=== PATIENT | male | born 1930 | race Caucasian/White ===

== ENCOUNTER 2017-04-10 20:23 | Observation (INO) | payer MEDICARE, BC ==
[2017-04-10] MEDS ORDERED: SODIUM CHLORIDE 0.9% 500 ML IV STA (21:07)
[2017-04-10 21:26] LABS: Basophils % (A) 1 %; CH 35.7; CHCM 33.6; Eosinophils % (A) 1 %; HCT 44.9 % (39.0-53.0); HDW 2.18; HGB 14.6 gm/dL (13.0-17.5); Luc # (Auto) 0.15; Luc % (Auto) 4; Lymphocytes % (A) 27 %; MCH 34.7 pg (25.0-35.0); MCHC 32.4 g/dL (31.0-37.0); Macrocytosis Moderate; Mean Platelet Volume 7.5; Monocytes # (A) 0.5 k/uL (0-1.0); Monocytes % (A) 13 %; Neutrophils % (A) 55 %; RDW 13.6 % (11.5-15.5); WBC 3.6 k/uL (3.8-10.6); WBC (Perox) 3.87
[2017-04-10 21:30] LABS: INR 1.8 (<1.1); Partial Thromboplastin Time 32.4 sec (22.0-30.0); Prothrombin Time 17.1 sec (9.0-12.0)
[2017-04-10 21:31] LABS: ALT 19 U/L (21-72); AST 28 U/L (17-59); Alkaline Phosphatase 66 U/L (38-126); Anion Gap 9 mmol/L; Blood Urea Nitrogen 13 mg/dL (9-20); Calcium 9.4 mg/dL (8.4-10.2); Carbon Dioxide 27 mmol/L (22-30); Chloride 98 mmol/L (98-107); Glucose 91 mg/dL (74-99); Magnesium 1.6 mg/dL (1.6-2.3); Non-African American GFR(MDRD) >60 (>60 ml/min/1.73 sqM); Potassium 3.8 mmol/L (3.5-5.1); Sodium 134 mmol/L (137-145); Total Bilirubin 1.3 mg/dL (0.2-1.3); Total Protein 7.2 g/dL (6.3-8.2)
[2017-04-10 21:36] LABS: Appearance,Urine Clear (Clear); Bilirubin,Urine Negative (Negative); Glucose,Urine (UA) Negative (Negative); Ketones,Urine Negative (Negative); Leukocyte Esterase,Urine Negative (Negative); Nitrite,Urine Negative (Negative); Protein,Urine Trace (Negative); Specific Gravity,Urine 1.008 (1.001-1.035); UA Billing (MACRO vs. MICRO) CHEM; Urobilinogen,Urine <2.0 mg/dL (<2.0)
--- NOTE | 2017-04-10 21:55 | CT ---
EXAMINATION TYPE: CT brain wo con DATE OF EXAM: 04/10/2017 COMPARISON: January 09, 2014 HISTORY: Weakness and head pressure. CT DLP: 1017.9 mGycm. Automated exposure control for dose reduction was used. FINDINGS: There is no acute intracranial hemorrhage, mass effect, or midline shift identified. The ventricles and sulci are within normal limits in size. The globes are intact and the visualized sinuses are adeel ar. IMPRESSION: No acute intracranial hemorrhage, mass effect, or midline shift is seen.
--- NOTE | 2017-04-10 21:59 | XR ---
EXAMINATION TYPE: XR chest 2V DATE OF EXAM: 04/10/2017 COMPARISON: January 09, 2014 HISTORY: Weakness with bilateral arm numbness and visual disturbances and headache TECHNIQUE: Frontal and lateral views of the chest are obtained. FINDINGS: The coarse reticular pattern throughout the interstitium of the lung parenchyma is redemons trated and similar when compared the prior study. There are no focal lung processes. Cardiac silhouette and remainder of the mediastinal silhouette is unremarkable. Cardiac pacemaker not ed, EKG leads. The pleural spaces are negative. Bones and soft tissues are unremarkable. IMPRESSION: 1. No definite acute radiographic process; suspect the coarse interstitial pattern represents chronic interstitial lung disease. 2. However, an acute interstitial component could be present if mild pulmonary edema is present clini afia.
[2017-04-10] MEDS ORDERED: NALOXONE 0.4 MG/ML 1 ML VIAL IV PRN (22:24)
--- NOTE | 2017-04-10 22:24 | ED ---
Neuro HPI - General Chief Complaint: Neuro Symptoms/Deficit Stated Complaint: hand numbness-1 mo/shaky Time Seen by Provider: 04/10/17 20:59 Source: patient, family Mode of arrival: ambulatory Limitations: no limitations - History of Present Illness Is the patient presenting with stroke symptoms?: No Initial Comments: Patient is complaining of paresthesias, numbness and tingling. He has been feeling lightheaded and dizzy. He had a syncopal episode. He currently denies any chest pain or shortness of breath. He has no belly or back pain. He has no nausea or vomiting. He has no focal weakness. He has no neck pain or stiffness. He has no change of vision or hearing. Nothing makes his symptoms better or worse. He was not doing anything when he began to feel this way. He has taken no specific medication for his symptoms. - Related Data Home Medications: Home Medications Medication Instructions Recorded Confirmed Aspirin 81 mg PO DAILY 04/10/17 04/10/17 Digoxin (Unknown Dose) 1 tab PO HS 04/10/17 04/10/17 Magnesium 200 mg PO DAILY 04/10/17 04/10/17 Multivit-Min/FA/Lycopen/Lutein 1 tab PO DAILY 04/10/17 04/10/17 [Centrum Silver Men Tablet] Omeprazole (Unknown Dose) 1 cap PO BID 04/10/17 04/10/17 Unknown Medication 1 tab PO DAILY 04/10/17 04/10/17 Warfarin [Coumadin] 2.5 mg PO TUTHSA 04/10/17 04/10/17 Warfarin [Coumadin] 5 mg PO SUMOWEFR 04/10/17 04/10/17 Allergies/Adverse Reactions: Allergies Allergy/AdvReac Type Severity Reaction Status Date / Time No Known Allergies Allergy Verified 04/10/17 22:01 Review of Systems ROS Statement: Those systems with pertinent positive or pertinent negative responses have been documented in the HPI. ROS Other: All systems not noted in ROS Statement are negative. General Exam Limitations: no limitations General appearance: alert, in no apparent distress Head exam: Present: atraumatic, normocephalic, normal inspection Eye exam: Present: normal appearance, PERRL, EOMI. Absent: scleral icterus, conjunctival injection, periorbital swelling ENT exam: Present: normal exam, mucous membranes moist Neck exam: Present: normal inspection. Absent: tenderness, meningismus, lymphadenopathy Respiratory exam: Present: normal lung sounds bilaterally. Absent: respiratory distress, wheezes, rales, rhonchi, stridor Cardiovascular Exam: Present: regular rate, normal rhythm, normal heart sounds. Absent: systolic murmur, diastolic murmur, rubs, gallop, clicks GI/Abdominal exam: Present: soft, normal bowel sounds. Absent: distended, tenderness, guarding, rebound, rigid Extremities exam: Present: normal inspection, full ROM, normal capillary refill. Absent: tenderness, pedal edema, joint swelling, calf tenderness Back exam: Present: normal inspection Neurological exam: Present: alert, oriented X3, CN II-XII intact Psychiatric exam: Present: normal affect, normal mood Skin exam: Present: warm, dry, intact, normal color. Absent: rash Stroke MDM - Lab Data Result diagrams: 04/10/17 21:00 04/10/17 21:00 Lab Results 04/10/17 04/10/17 04/10/17 Range/Units 21:00 21:00 21:00 WBC 3.6 L (3.8-10.6) k/uL RBC 4.20 L (4.30-5.90) m/uL Hgb 14.6 (13.0-17.5) gm/dL Hct 44.9 (39.0-53.0) % MCV 107.0 H (80.0-100.0) fL MCH 34.7 (25.0-35.0) pg MCHC 32.4 (31.0-37.0) g/dL RDW 13.6 (11.5-15.5) % Plt Count 155 (150-450) k/uL Neutrophils % 55 % Lymphocytes % 27 % Monocytes % 13 % Eosinophils % 1 % Basophils % 1 % Neutrophils # 2.0 (1.3-7.7) k/uL Lymphocytes # 1.0 (1.0-4.8) k/uL Monocytes # 0.5 (0-1.0) k/uL Eosinophils # 0.0 (0-0.7) k/uL Basophils # 0.0 (0-0.2) k/uL Macrocytosis Moderate PT (9.0-12.0) sec INR (<1.1) APTT (22.0-30.0) sec Sodium 134 L (137-145) mmol/L Potassium 3.8 (3.5-5.1) mmol/L Chloride 98 (98-107) mmol/L Carbon Dioxide 27 (22-30) mmol/L Anion Gap 9 mmol/L BUN 13 (9-20) mg/dL Creatinine 1.10 (0.66-1.25) mg/dL Est GFR (MDRD) Af Amer >60 (>60 ml/min/1.73 sqM) Est GFR (MDRD) Non-Af >60 (>60 ml/min/1.73 sqM) Glucose 91 (74-99) mg/dL Calcium 9.4 (8.4-10.2) mg/dL Magnesium 1.6 (1.6-2.3) mg/dL Total Bilirubin 1.3 (0.2-1.3) mg/dL AST 28 (17-59) U/L ALT 19 L (21-72) U/L Alkaline Phosphatase 66 (38-126) U/L Troponin I (0.000-0.034) ng/mL NT-Pro-B Natriuret Pep 587 pg/mL Total Protein 7.2 (6.3-8.2) g/dL Albumin 4.2 (3.5-5.0) g/dL Urine Color Urine Appearance (Clear) Urine pH (5.0-8.0) Ur Specific [place] (1.001-1.035) Urine Protein (Negative) Urine Glucose (UA) (Negative) Urine Ketones (Negative) Urine Blood (Negative) Urine Nitrite (Negative) Urine Bilirubin (Negative) Urine Urobilinogen (<2.0) mg/dL Ur Leukocyte Esterase (Negative) 04/10/17 04/10/17 04/10/17 Range/Units 21:00 21:00 21:27 WBC (3.8-10.6) k/uL RBC (4.30-5.90) m/uL Hgb (13.0-17.5) gm/dL Hct (39.0-53.0) % MCV (80.0-100.0) fL MCH (25.0-35.0) pg MCHC (31.0-37.0) g/dL RDW (11.5-15.5) % Plt Count (150-450) k/uL Neutrophils % % Lymphocytes % % Monocytes % % Eosinophils % % Basophils % % Neutrophils # (1.3-7.7) k/uL Lymphocytes # (1.0-4.8) k/uL Monocytes # (0-1.0) k/uL Eosinophils # (0-0.7) k/uL Basophils # (0-0.2) k/uL Macrocytosis PT 17.1 H (9.0-12.0) sec INR 1.8 (<1.1) APTT 32.4 H (22.0-30.0) sec Sodium (137-145) mmol/L Potassium (3.5-5.1) mmol/L Chloride (98-107) mmol/L Carbon Dioxide (22-30) mmol/L Anion Gap mmol/L BUN (9-20) mg/dL Creatinine (0.66-1.25) mg/dL Est GFR (MDRD) Af Amer (>60 ml/min/1.73 sqM) Est GFR (MDRD) Non-Af (>60 ml/min/1.73 sqM) Glucose (74-99) mg/dL Calcium (8.4-10.2) mg/dL Magnesium (1.6-2.3) mg/dL Total Bilirubin (0.2-1.3) mg/dL AST (17-59) U/L ALT (21-72) U/L Alkaline Phosphatase (38-126) U/L Troponin I <0.012 (0.000-0.034) ng/mL NT-Pro-B Natriuret Pep pg/mL Total Protein (6.3-8.2) g/dL Albumin (3.5-5.0) g/dL Urine Color Yellow Urine Appearance Clear (Clear) Urine pH 7.0 (5.0-8.0) Ur Specific [place] 1.008 (1.001-1.035) Urine Protein Trace H (Negative) Urine Glucose (UA) Negative (Negative) Urine Ketones Negative (Negative) Urine Blood Negative (Negative) Urine Nitrite Negative (Negative) Urine Bilirubin Negative (Negative) Urine Urobilinogen <2.0 (<2.0) mg/dL Ur Leukocyte Esterase Negative (Negative) - Medical Decision Making Patient presents with dizziness, lightheadedness, syncope. His workup thus far does not reveal a specific etiology. Given his age, risk factors and sick of episode he will be admitted to the hospital. 04/10/17 22:23 Twelve-lead EKG is obtained, interpreted by me showing ventricular rate of 76 bpm, no P waves are present, there are ventricular pacer spikes, interpreted by me as a ventricular paced rhythm. Past Medical History Past Medical History: Hyperlipidemia, Hypertension, Myocardial Infarction ([place]) History of Any Multi-Drug Resistant Organisms: None Reported Past Surgical History: Heart Catheterization, Heart Catheterization With Stent Past Psychological History: No Psychological Hx Reported Smoking Status: Former smoker Past Alcohol Use History: Occasional Past Drug Use History: None Reported Course Vital Signs 04/10/17 04/10/17 20:48 22:18 Temperature 98.2 F Pulse Rate 84 72 Respiratory 20 16 Rate Blood Pressure 170/86 147/85 O2 Sat by Pulse 98 98 Oximetry Disposition Clinical Impression: Syncope Disposition: ADMITTED IP TO THIS HOSP Condition: Fair Referrals: Fahad Nicole MD [Primary Care Provider] - 1-2 days Time of Disposition: 22:24
[2017-04-10 23:54] VITALS: BMI 19.8
[2017-04-11] MEDS ORDERED: ACETAMINOPHEN TAB 500 MG TAB PO PRN (00:26)
[2017-04-11 00:43] LABS: INR 1.8 (<1.1); Partial Thromboplastin Time 32.9 sec (22.0-30.0)
[2017-04-11] MEDS: NAPROXEN 250 MG TAB PO SCH ×2 (01:12→08:45)
[2017-04-11] MEDS: MAGNESIUM OXIDE 400 MG TAB PO SCH (08:45)
[2017-04-11] MEDS: ASPIRIN 81 MG CHEW PO SCH (08:45)
[2017-04-11] MEDS: PANTOPRAZOLE 40 MG TABLET PO SCH ×2 (11:28→18:39)
[2017-04-11] MEDS: LISINOPRIL 10 MG TAB PO SCH (11:28)
[2017-04-11] MEDS ORDERED: ONDANSETRON 4 MG/2 ML VIAL IVP PRN (15:54)
[2017-04-11] MEDS: GABAPENTIN 100 MG CAP PO SCH ×2 (16:00→20:28)
[2017-04-11] MEDS: METOPROLOL TARTRATE 25 MG TAB PO SCH ×2 (16:00→20:27)
[2017-04-11] MEDS ORDERED: THIAMINE 100 MG TAB PO SCH (17:00)
--- NOTE | 2017-04-11 17:12 | HP ---
DATE OF ADMISSION: 04/10/2017 PRESENTING COMPLAINT: Burning in the hands and feet. HISTORY OF PRESENTING COMPLAINT: This is a very pleasant 87-year-old patient of Dr. Nicole. Patient's chronic stable medical conditions include hypertension, hyperlipidemia, coronary artery disease. Patient has a prior stent. Patient presents with symptoms that he notices numbness and tingling in both the arms from below the mid arm right down to the fingers. Finger symptoms started burning. He also gets a burning sensation in the feet limited to his feet. Sometimes he feels head pressure, but this has been going on for months and sometimes is tender actually to touch things. Patient had a pacemaker check that went okay. Patient states that because of numbness and tingling sometimes he actually falls. REVIEW OF SYSTEMS: CONSTITUTIONAL: None. HEENT: Decreased hearing. RESPIRATORY: None. CARDIOVASCULAR: None. GASTROINTESTINAL: None. GENITOURINARY: None. MUSCULOSKELETAL: None. DERMATOLOGICAL: None. HEMATOLOGICAL: None. LYMPHATICS: None. PSYCHIATRY: None. NEUROLOGICAL: As above. PAST MEDICAL HISTORY: Hypertension, hyperlipidemia, coronary artery disease with stent. PAST SURGICAL HISTORY: Cardiac cath with stent. SOCIAL HISTORY: Does smoke in the past. Alcohol occasionally. . Family history of bone cancer and myocardial infarction. HOME MEDICATIONS: 1. Digoxin 125 mcg p.o. q.h.s. 2. Flomax 0.4 mg p.o. daily. 3. Omeprazole 20 mg p.o. b.i.d. 4. Coumadin 2.5 mg on Monday, , Monday and 5 mg Monday, Monday, Monday, Monday. 5. Centrum Silver 1 tablet p.o. daily. 6. Magnesium 200 mg p.o. daily. 7. Aspirin 81 mg p.o. daily. ALLERGIES: None. On examination, temperature 97.8, pulse 90, respirations 14, blood pressure 134/86, pulse ox 97% on room air. GENERAL APPEARANCE: Average build, sitting up, tired. EYES: Pupils equal. Conjunctivae normal. HEENT: Oral cavity normal. NECK: JVD not raised. Mass not palpable. RESPIRATORY: Effort normal. LUNGS: Slightly decreased breath sounds. CARDIOVASCULAR: First and second seconds normal. No edema. ABDOMEN: Soft, nontender. Liver and spleen not palpable. LYMPHATIC: No lymph nodes palpable in the neck or axillae. PSYCHIATRY: Alert and oriented x3. Mood and affect normal. NEUROLOGICAL: Pupils equal. Cranial nerves cranial nerves grossly intact. Power and sensation grossly intact. Sensory grossly intact. INVESTIGATIONS: White count 3.6, hemoglobin 14.6, INR 1.8, potassium 3.8. BUN and creatinine are normal. Troponin x3 negative. CT scan of the brain, nil acute. EKG, ventricular paced rhythm. ASSESSMENT: 1. This is a patient who presented with numbness, tingling and pain in both the upper and lower extremity mostly distally in the lower extremity. 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 2. Essential hypertension, urgent, uncontrolled. 3. Hyperlipidemia. 4. Coronary artery disease with prior history of stent. 5. Permanent pacemaker in place. PLAN: Will start the patient on Neurontin. For better blood pressure control start the patient on Lopressor 25 twice a day. Care was discussed with the patient and family at the bedside.
[2017-04-11] MEDS ORDERED: WARFARIN 2.5 MG TAB PO SCH (18:00)
[2017-04-11] MEDS ORDERED: LORazepam 2 MG/ML SYRINGE IV PRN ×3 (18:56)
[2017-04-11] MEDS ORDERED: THIAMINE 100 MG/ML 2 ML VIAL IM STA (18:56)
[2017-04-11] MEDS ORDERED: DIAZEPAM 5 MG/ML 2 ML SYRINGE IVP PRN (18:56)
[2017-04-11] MEDS: DIGOXIN 125 MCG TAB PO SCH (20:28)
[2017-04-11] MEDS ORDERED: DIGOXIN PO SCH (21:00)
[2017-04-12 06:37] LABS: Basophils # (A) 0.1 k/uL (0-0.2); Basophils % (A) 1 %; CH 35.2; CHCM 32.1; Eosinophils # (A) 0.1 k/uL (0-0.7); Eosinophils % (A) 1 %; HCT 49.3 % (39.0-53.0); HDW 2.15; HGB 15.8 gm/dL (13.0-17.5); Luc # (Auto) 0.23; Luc % (Auto) 5; Lymphocytes # (A) 2.1 k/uL (1.0-4.8); Lymphocytes % (A) 39 %; MCH 35.2 pg (25.0-35.0); MCV 110.2 fL (80.0-100.0); Macrocytosis Marked; Mean Platelet Volume 7.6; Monocytes # (A) 0.6 k/uL (0-1.0); Monocytes % (A) 11 %; Neutrophils # (A) 2.3 k/uL (1.3-7.7); Neutrophils % (A) 43 %; RBC 4.48 m/uL (4.30-5.90); RDW 13.6 % (11.5-15.5); WBC 5.2 k/uL (3.8-10.6); WBC (Perox) 5.39
[2017-04-12 06:58] LABS: Anion Gap 10 mmol/L; Blood Urea Nitrogen 12 mg/dL (9-20); Calcium 9.1 mg/dL (8.4-10.2); Carbon Dioxide 26 mmol/L (22-30); Chloride 104 mmol/L (98-107); Glucose 91 mg/dL (74-99); Non-African American GFR(MDRD) 59 (>60 ml/min/1.73 sqM); Potassium 4.6 mmol/L (3.5-5.1); Sodium 140 mmol/L (137-145)
[2017-04-12 08:02] LABS: Manual Review Performed
[2017-04-12 08:45] VITALS: RESP 16; TEMP 98
[2017-04-12 08:46] VITALS: BP 125/61; PULSE 83
[2017-04-12] MEDS: LISINOPRIL 10 MG TAB PO SCH (08:51)
[2017-04-12] MEDS: MAGNESIUM OXIDE 400 MG TAB PO SCH (08:51)
[2017-04-12] MEDS: METOPROLOL TARTRATE 25 MG TAB PO SCH (08:51)
[2017-04-12] MEDS: ASPIRIN 81 MG CHEW PO SCH (08:53)
[2017-04-12] MEDS: PANTOPRAZOLE 40 MG TABLET PO SCH (08:53)
[2017-04-12] MEDS: GABAPENTIN 100 MG CAP PO SCH (08:53)
[2017-04-12] MEDS: DIGOXIN 125 MCG TAB PO SCH (08:53)
[2017-04-12] MEDS ORDERED: MULTIVITAMINS, THERA 1 EACH TAB PO SCH (12:00)
[2017-04-12] MEDS ORDERED: WARFARIN 5 MG TAB PO SCH (18:00)
--- NOTE | 2017-04-13 07:31 | DS ---
DATE OF ADMISSION: 04/10/2017 DATE OF DISCHARGE: 04/12/2017 FINAL DIAGNOSES: 1. Acute flareup of painful peripheral neuropathy, cause unknown. 2. Essential hypertension, uncontrolled. 3. Hyperlipidemia. 4. Coronary artery disease with prior history of stent. 5. Permanent pacemaker in place. HOSPITAL COURSE: This patient presented with burning sensation in the arms and legs more distal in the feet and in the arms, midarm downwards to the point that patient actually had a syncopal episode. Patient's blood pressure was ( ). Patient was started on Neurontin. Symptoms started feeling better. Started on the Lopressor. By the time of discharge, patient's blood pressure is better at 125/61. Care was discussed with the patient and family the bedside. Expect Neurontin to kick in more in 7 to 10 days. On exam, lungs are clear. CARDIOVASCULAR: First and second seconds normal. Discharge planning more than 35 minutes. DISCHARGE MEDICATIONS: 1. Aspirin 81 mg a day. 2. Magnesium 200 mg a day. 3. Centrum Silver 1 tablet p.o. daily. 4. Omeprazole 20 mg b.i.d. 5. Coumadin 2.5 mg Monday, , Monday and 5 mg Monday, Monday, Monday, Monday. 6. Digoxin 125 mcg a day. 7. Neurontin 100 mg p.o. t.i.d. 8. Lopressor 25 p.o. b.i.d. 9. Flomax 0.4 mg p.o. q.h.s. Follow up with Dr. Nicole in 3 to 5 days.
== END 2017-04-12 13:02 | disposition home or self-care (01) ==
LOC: EC 20:23 → 3OBS 22:24
PROVIDERS: ADMIT Hospitalist; ATTEND Hospitalist
DX: G62.9 Polyneuropathy, unspecified (principal); R55 Syncope and collapse; I10 Essential (primary) hypertension; E78.5 Hyperlipidemia, unspecified; I25.10 Atherosclerotic heart disease of native coronary artery without angina pectoris; Z95.0 Presence of cardiac pacemaker; R20.0 Anesthesia of skin; R20.2 Paresthesia of skin; I25.2 Old myocardial infarction; Z79.01 Long term (current) use of anticoagulants; Z79.82 Long term (current) use of aspirin; Z87.891 Personal history of nicotine dependence; Z79.899 Other long term (current) drug therapy; R42 Dizziness and giddiness; Z82.49 Family history of ischemic heart disease and other diseases of the circulatory system; Z95.5 Presence of coronary angioplasty implant and graft; R20.8 Other disturbances of skin sensation; R53.1 Weakness; H53.9 Unspecified visual disturbance
CPT/HCPCS: 99285 ×2; 36415; 93005; 83880; 80053; 80048; 83735; 84484 ×2; 85025 ×2; 85610; 85730; 81003; 71020; 70450; G0378 ×3; J2060; J2405

== ENCOUNTER 2017-06-30 14:32 | Inpatient (IN) | payer MEDICARE, BC ==
[2017-06-30 14:58] LABS: Glucose,Whole Blood 62 mg/dL (75-99)
[2017-06-30 14:58] LABS: Glucose,Whole Blood 85 mg/dL (75-99)
--- NOTE | 2017-06-30 15:20 | ED ---
General Adult HPI - General Chief complaint: Neuro Symptoms/Deficit Stated complaint: Poss Stoke Time Seen by Provider: 06/30/17 15:01 Source: patient, family, RN notes reviewed Mode of arrival: wheelchair Limitations: no limitations - History of Present Illness Initial comments: Patient is a pleasant 87-year-old male presenting to the emergency department complaining of unresponsive episode. Episode occurred around 2:00. Patient was less responsive. This was witnessed by . This patient was acting normally. When the son arrived he found patient to be less responsive than normal however not completely unresponsive. Patient has been delayed in answering questions and communicating. No speech changes. No history of similar symptoms previously. Patient was somewhat weak all over and had difficulty with walking. No isolated area of weakness identified. Patient has significantly improved since onset. - Related Data Home Medications Medication Instructions Recorded Confirmed Aspirin 81 mg PO DAILY 04/10/17 06/30/17 Magnesium 200 mg PO DAILY 04/10/17 06/30/17 Multivit-Min/FA/Lycopen/Lutein 1 tab PO DAILY 04/10/17 06/30/17 [Centrum Silver Men Tablet] Omeprazole 20 mg PO BID 04/10/17 06/30/17 Warfarin [Coumadin] 2.5 mg PO TUTHSA 04/10/17 06/30/17 Warfarin [Coumadin] 5 mg PO SUMOWEFR 04/10/17 06/30/17 Digoxin [Lanoxin] 125 mcg PO HS 04/11/17 06/30/17 Tamsulosin HCl [Flomax] 0.4 mg PO DAILY 06/30/17 06/30/17 Vits A,C,E/Lutein/Minerals 1 tab PO DAILY 06/30/17 06/30/17 [Ocuvite with Lutein Tablet] Previous Rx's Medication Instructions Recorded Gabapentin [Neurontin] 100 mg PO TID #90 cap 04/12/17 Metoprolol Tartrate [Lopressor] 25 mg PO BID #60 tab 04/12/17 Allergies Allergy/AdvReac Type Severity Reaction Status Date / Time No Known Allergies Allergy Verified 06/30/17 15:24 Review of Systems ROS Statement: Those systems with pertinent positive or pertinent negative responses have been documented in the HPI. ROS Other: All systems not noted in ROS Statement are negative. Constitutional: Denies: fever Eyes: Denies: eye pain ENT: Denies: ear pain Respiratory: Denies: cough Cardiovascular: Denies: chest pain Endocrine: Denies: fatigue Gastrointestinal: Denies: abdominal pain Genitourinary: Denies: dysuria Musculoskeletal: Denies: back pain Skin: Denies: rash Neurological: Reports: weakness, confusion. Denies: headache Past Medical History Past Medical History: Hyperlipidemia, Hypertension, Myocardial Infarction ([place]) Last Myocardial Infarction Date:: 2011 History of Any Multi-Drug Resistant Organisms: None Reported Past Surgical History: AICD, Heart Catheterization, Heart Catheterization With Stent, Pacemaker Past Anesthesia/Blood Transfusion Reactions: No Reported Reaction Date of Last Stent Placement:: 2011 Past Psychological History: No Psychological Hx Reported Smoking Status: Former smoker Past Alcohol Use History: Occasional Past Drug Use History: None Reported - Past Family History Mother Family Medical History: Myocardial Infarction ([place]) Father Family Medical History: Cancer Additional Family Medical History / Comment(s): Bone CA, heart issues General Exam Limitations: no limitations General appearance: alert, in no apparent distress Head exam: Present: atraumatic Eye exam: Present: normal appearance, PERRL ENT exam: Present: normal oropharynx Neck exam: Present: normal inspection Respiratory exam: Present: normal lung sounds bilaterally Cardiovascular Exam: Present: regular rate, normal rhythm GI/Abdominal exam: Present: soft. Absent: tenderness Extremities exam: Present: normal inspection Neurological exam: Present: alert, oriented X3, CN II-XII intact Expanded Neurological exam: Present: protecting the airway Patient oriented to: Present: person, place, time Speech: Present: fluid speech Cranial nerves: EOM's Intact: Normal, Facial Sensation: Normal Sensory exam: Upper Extremity Light Touch: Normal, Lower Extremity Light Touch: Normal Motor strength exam: RUE: 5, LUE: 5 (Surveillance Specialist strength slightly decreased on the left), RLE: 5, LLE: 5 (Dorsi and plantarflexion slightly diminished on the left. ) Eye Response: (4) open spontaneously Motor Response: (6) obeys commands Verbal Response: (5) oriented Psychiatric exam: Present: normal affect, normal mood Skin exam: Present: normal color Course Vital Signs 06/30/17 06/30/17 14:33 16:00 Temperature 97.2 F L Pulse Rate 60 Respiratory 18 18 Rate Blood Pressure 166/88 149/80 O2 Sat by Pulse 96 Oximetry - Reevaluation(s) Reevaluation #1: 06/30/17 15:18 Patient is not considered a TPA candidate secondary to improvement of symptoms as well as minimal symptoms/low NIH score. In addition patient is age 87. EKG Findings - EKG Comments: EKG Findings:: Paced rhythm 64. QRS 138. QT 420. QTc 441. Right axis. Wide complex QRS. No acute ST change. Medical Decision Making - Medical Decision Making Patient reexamined and resting comfortably in bed. Patient is alert and appropriate. Patient and family updated on results and plan. Case was discussed in detail with Dr. howe, who will admit for Dr. pimentel. Computed tomography scan of the chest will be ordered. For evaluation of right upper lobe density. - Lab Data Result diagrams: 06/30/17 14:52 06/30/17 14:52 Lab Results 06/30/17 06/30/17 06/30/17 Range/Units 14:52 14:52 14:52 WBC 4.7 (3.8-10.6) k/uL RBC 3.95 L (4.30-5.90) m/uL Hgb 13.6 (13.0-17.5) gm/dL Hct 40.5 (39.0-53.0) % MCV 102.5 H (80.0-100.0) fL MCH 34.4 (25.0-35.0) pg MCHC 33.5 (31.0-37.0) g/dL RDW 13.8 (11.5-15.5) % Plt Count 160 (150-450) k/uL Neutrophils % 49 % Lymphocytes % 38 % Monocytes % 7 % Eosinophils % 2 % Basophils % 1 % Neutrophils # 2.3 (1.3-7.7) k/uL Lymphocytes # 1.8 (1.0-4.8) k/uL Monocytes # 0.3 (0-1.0) k/uL Eosinophils # 0.1 (0-0.7) k/uL Basophils # 0.1 (0-0.2) k/uL Macrocytosis Slight PT (9.0-12.0) sec INR (<1.2) APTT (22.0-30.0) sec Sodium 139 (137-145) mmol/L Potassium 4.5 (3.5-5.1) mmol/L Chloride 103 (98-107) mmol/L Carbon Dioxide 27 (22-30) mmol/L Anion Gap 9 mmol/L BUN 12 (9-20) mg/dL Creatinine 1.27 H (0.66-1.25) mg/dL Est GFR (MDRD) Af Amer >60 (>60 ml/min/1.73 sqM) Est GFR (MDRD) Non-Af 54 (>60 ml/min/1.73 sqM) Glucose 85 (74-99) mg/dL POC Glucose (mg/dL) (75-99) mg/dL POC Glu Event Lighting Specialist ID Calcium 9.1 (8.4-10.2) mg/dL Total Bilirubin 0.7 (0.2-1.3) mg/dL AST 24 (17-59) U/L ALT 25 (21-72) U/L Alkaline Phosphatase 90 (38-126) U/L Total Creatine Kinase 49 L (55-170) U/L CK-MB (CK-2) 0.7 (0.0-2.4) ng/mL CK-MB (CK-2) Rel Index 1.4 Troponin I <0.012 (0.000-0.034) ng/mL Total Protein 6.9 (6.3-8.2) g/dL Albumin 4.0 (3.5-5.0) g/dL 06/30/17 06/30/17 06/30/17 Range/Units 14:52 14:53 14:55 WBC (3.8-10.6) k/uL RBC (4.30-5.90) m/uL Hgb (13.0-17.5) gm/dL Hct (39.0-53.0) % MCV (80.0-100.0) fL MCH (25.0-35.0) pg MCHC (31.0-37.0) g/dL RDW (11.5-15.5) % Plt Count (150-450) k/uL Neutrophils % % Lymphocytes % % Monocytes % % Eosinophils % % Basophils % % Neutrophils # (1.3-7.7) k/uL Lymphocytes # (1.0-4.8) k/uL Monocytes # (0-1.0) k/uL Eosinophils # (0-0.7) k/uL Basophils # (0-0.2) k/uL Macrocytosis PT 12.9 H (9.0-12.0) sec INR 1.3 H (<1.2) APTT 29.8 (22.0-30.0) sec Sodium (137-145) mmol/L Potassium (3.5-5.1) mmol/L Chloride (98-107) mmol/L Carbon Dioxide (22-30) mmol/L Anion Gap mmol/L BUN (9-20) mg/dL Creatinine (0.66-1.25) mg/dL Est GFR (MDRD) Af Amer (>60 ml/min/1.73 sqM) Est GFR (MDRD) Non-Af (>60 ml/min/1.73 sqM) Glucose (74-99) mg/dL POC Glucose (mg/dL) 62 L 85 (75-99) mg/dL POC Glu Event Lighting Specialist ID Lennox, Shellene Lennox, Shellene Calcium (8.4-10.2) mg/dL Total Bilirubin (0.2-1.3) mg/dL AST (17-59) U/L ALT (21-72) U/L Alkaline Phosphatase (38-126) U/L Total Creatine Kinase (55-170) U/L CK-MB (CK-2) (0.0-2.4) ng/mL CK-MB (CK-2) Rel Index Troponin I (0.000-0.034) ng/mL Total Protein (6.3-8.2) g/dL Albumin (3.5-5.0) g/dL - Radiology Data Radiology results: report reviewed (Computed tomography scan of the brain shows no acute intercranial abnormality. Moderate to severe atrophy), image reviewed (Chest x-ray shows right upper lobe density. Chronic interstitial lung disease and COPD.) Disposition Clinical Impression: Cerebrovascular accident Disposition: ADMITTED IP TO THIS [facility] Referrals: Fahad Nicole MD [Primary Care Provider] - 1-2 days Decision Time: 16:35
[2017-06-30 15:43] LABS: Basophils # (A) 0.1 k/uL (0-0.2); Basophils % (A) 1 %; CH 34.7; Eosinophils # (A) 0.1 k/uL (0-0.7); Eosinophils % (A) 2 %; HCT 40.5 % (39.0-53.0); HDW 2.45; HGB 13.6 gm/dL (13.0-17.5); Luc # (Auto) 0.16; Luc % (Auto) 3; Lymphocytes # (A) 1.8 k/uL (1.0-4.8); Lymphocytes % (A) 38 %; MCH 34.4 pg (25.0-35.0); MCHC 33.5 g/dL (31.0-37.0); MCV 102.5 fL (80.0-100.0); Macrocytosis Slight; Mean Platelet Volume 8.1; Monocytes # (A) 0.3 k/uL (0-1.0); Monocytes % (A) 7 %; Neutrophils # (A) 2.3 k/uL (1.3-7.7); Neutrophils % (A) 49 %; RBC 3.95 m/uL (4.30-5.90); RDW 13.8 % (11.5-15.5); WBC 4.7 k/uL (3.8-10.6); WBC (Perox) 4.58
[2017-06-30 15:47] LABS: INR 1.3 (<1.2); Partial Thromboplastin Time 29.8 sec (22.0-30.0); Prothrombin Time 12.9 sec (9.0-12.0)
[2017-06-30 15:59] LABS: ALT 25 U/L (21-72); AST 24 U/L (17-59); Alkaline Phosphatase 90 U/L (38-126); Anion Gap 9 mmol/L; Blood Urea Nitrogen 12 mg/dL (9-20); Calcium 9.1 mg/dL (8.4-10.2); Carbon Dioxide 27 mmol/L (22-30); Chloride 103 mmol/L (98-107); Glucose 85 mg/dL (74-99); Non-African American GFR(MDRD) 54 (>60 ml/min/1.73 sqM); Potassium 4.5 mmol/L (3.5-5.1); Sodium 139 mmol/L (137-145); Total Bilirubin 0.7 mg/dL (0.2-1.3); Total Protein 6.9 g/dL (6.3-8.2)
--- NOTE | 2017-06-30 15:59 | CT ---
EXAMINATION TYPE: CT brain wo con for TPA DATE OF EXAM: 06/30/2017 HISTORY: Episode of staring off into space and not responding. Neurodeficits per order. Acute stroke. CT DLP: 978.20 mGycm. Automated Exposure Control for Dose Reduction was Utilized. TECHNIQUE: CT scan of the head is performed without contrast. COMPARISON: CT brain April 10, 2017. FINDINGS: There is no acute intracranial hemorrhage or midline shift identified. There is diffuse v entricular and sulcal prominence consistent with diffuse age-related cerebral atrophy. There is low- attenuation in the periventricular white matter consistent with chronic small vessel ischemic change. Scleral calcification both globes is identified. Visualized paranasal sinuses are clear. IMPRESSION: No acute intracranial hemorrhage or midline shift. There is moderate to severe diffuse age-related cerebral atrophy and mild to moderate chronic small vessel ischemic change redemonstrate d without significant change from prior study seen.
--- NOTE | 2017-06-30 16:01 | XR ---
EXAMINATION TYPE: XR chest 2V DATE OF EXAM: 06/30/2017 COMPARISON: 04/10/2017 TECHNIQUE: PA and lateral views submitted. HISTORY: Cough FINDINGS: Heart is enlarged and there is a multilead cardiac device. Arthropathy of the shoulders with no pneum othorax or pleural effusion. Underlying COPD and chronic interstitial lung disease seen. There is a vague area of nodular density in the right upper lobe measuring 1.4 cm. IMPRESSION: 1. Right upper lobe area of density may represent infiltrate or mass. Recommend CT chest. 2. COPD and chronic interstitial lung disease.
[2017-06-30] MEDS: SODIUM CHLORIDE 0.9% 1,000 ML IV STA ×2 (16:04→22:45)
[2017-06-30 16:08] LABS: Creatine Kinase 49 U/L (55-170)
[2017-06-30 16:21] LABS: Creatine Kinase MB 0.7 ng/mL (0.0-2.4); Troponin I <0.012 ng/mL (0.000-0.034)
[2017-06-30] MEDS ORDERED: ASPIRIN 325 MG TAB PO STA (16:36)
[2017-06-30] MEDS ORDERED: RX INFO: IV CONTRAST WAS GIVEN 1 EACH MISC MISCELLANE PRN (16:37)
--- NOTE | 2017-06-30 18:10 | CT ---
EXAMINATION TYPE: CT chest w con DATE OF EXAM: 06/30/2017 COMPARISON: 01/09/2014 HISTORY: Abnormal chest xray and episode of shortness of breath CT DLP: 574.4 mGycm Automated exposure control for dose reduction was used. CONTRAST: CT scan of the chest is performed with IV Contrast, patient injected with 100 mL of Omnipaque 300. FINDINGS: There is a patchy nodular infiltrate in the mid lung maldonado. There is coarsening of interstitial slick ings. There is mild subpleural increased interstitial density at the posterior lung bases. Heart is e nlarged. There are a few mediastinal lymph nodes that measure less than 1 cm. There are no hilar mass es. There are calcified granulomata at the pulmonary michael. There is no pleural effusion. The bony thorax is intact. There is spurring in the thoracic spine. IMPRESSION: There is a chronic nodular pulmonary infiltrate in the midlung maldonado similar to old exa m. I see no definite increasing pulmonary density compared to old exam. Findings are consistent with pulmonary fibrosis and old granulomatous disease. Is there a history of sarcoidosis? Spondylotic changes in the thoracic spine. Atherosclerotic vascular disease. Mild aneurysm of ascendi ng aorta that measures 4.4 cm and is unchanged.
--- NOTE | 2017-06-30 18:31 | US ---
EXAMINATION TYPE: US carotid duplex BILAT DATE OF EXAM: 06/30/2017 COMPARISON: NONE CLINICAL HISTORY: Stenosis. Possible stroke, exam done portable in ER. EXAM MEASUREMENTS: RIGHT: Peak Systolic Velocity (PSV) cm/sec ----- Right CCA: 35.4 ----- Right ICA: 88.7 ----- Right ECA: 65.0 ICA/CCA ratio: 2.5 RIGHT: End Diastole cm/sec ----- Right CCA: 8.0 ----- Right ICA: 26.6 ----- Right ECA: 6.3 LEFT: Peak Systolic Velocity (PSV) cm/sec ----- Left CCA: 46.8 ----- Left ICA: 68.9 ----- Left ECA: 67.6 ICA/CCA ratio: 1.5 LEFT: End Diastole cm/sec ----- Left CCA: 9.6 ----- Left ICA: 21.8 ----- Left ECA: 9.2 VERTEBRALS (direction of flow): Right Vertebral: Antegrade Left Vertebral: Antegrade Bilateral intimal thickening, plaque bilateral bulb, right ICA/CCA ratio of 2.5. IMPRESSION: There is antegrade flow in the vertebral arteries. The images and measurements suggest 3 0-40% stenosis in both internal carotid arteries. Criteria for Assigning % of Stenosis / Diameter reduction (Estimation based on the indirect measurements of the internal carotid artery velocities (ICA PSV). 1. Normal (no stenosis)=ICA PSV < 125 cm/s: ratio < 2.0: ICA EDV<40 cm/s. 2. Less than 50% stenosis=ICA PSV < 125 cm/s: ratio < 2.0: ICA EDV<40 cm/s. 3. 50 to 69% stenosis=ICA PSV of 125 to 230 cm/s: ration 2.0 ? 4.0: ICA EDV 40-100 cm/s. 4. Greater than 70% stenosis to near occlusion= ICA PSV > 230 cm/s: ratio > 4.0: ICA EDV > 100 cm/s. 5. Near occlusion= ICA PSV velocities may be low or undetectable: variable ratio and ICA EDV. 6. Total occlusion=unable to detect flow.
[2017-06-30] MEDS ORDERED: GABAPENTIN 100 MG CAP PO SCH (22:00)
[2017-06-30] MEDS: METOPROLOL TARTRATE 25 MG TAB PO SCH (22:12)
[2017-06-30] MEDS: DIGOXIN 125 MCG TAB PO SCH (22:43)
[2017-06-30] MEDS: ENOXAPARIN 40 MG/0.4 ML SYRINGE SQ SCH (22:44)
[2017-06-30] MEDS: SODIUM CHLORIDE 0.9% 1,000 ML IV SCH (22:45)
[2017-07-01] MEDS: SODIUM CHLORIDE 0.9% 1,000 ML IV SCH ×2 (03:32→11:25)
[2017-07-01 06:28] LABS: Cholesterol 127 mg/dL (<200); HDL Cholesterol 39 mg/dL (40-60)
[2017-07-01] MEDS: PANTOPRAZOLE 40 MG TABLET PO SCH (07:02)
[2017-07-01] MEDS ORDERED: ASPIRIN 325 MG TAB PO SCH (09:00)
[2017-07-01] MEDS: ENOXAPARIN 40 MG/0.4 ML SYRINGE SQ SCH (09:14)
[2017-07-01] MEDS: MAGNESIUM OXIDE 400 MG TAB PO SCH (09:15)
[2017-07-01] MEDS: GABAPENTIN 100 MG CAP PO SCH ×3 (09:15→20:53)
[2017-07-01] MEDS: ASPIRIN 81 MG CHEW PO SCH (09:15)
[2017-07-01] MEDS: TAMSULOSIN 0.4 MG CAP.ER.24H PO SCH (09:16)
[2017-07-01] MEDS: METOPROLOL TARTRATE 25 MG TAB PO SCH ×2 (09:16→20:53)
--- NOTE | 2017-07-01 10:09 | ECHOF ---
Referral Reason:Thrombus MEASUREMENTS -------- HEIGHT: 185.4 cm WEIGHT: 68.9 kg BP: 128/70 RVIDd: 3.4 cm (< 3.3) IVSd: 1.1 cm (0.6 - 1.1) LVIDd: 3.7 cm (3.9 - 5.3) LVPWd: 1.2 cm (0.6 - 1.1) EDV(Teich): 57 ml IVSs: 1.3 cm LVIDs: 2.2 cm LVPWs: 1.5 cm %IVS Thck: 20 % ESV(Teich): 17 ml EF(Teich): 70 % %FS: 39 % SV(Teich): 40 ml LA Diam: 3.8 cm (2.7 - 3.8) LVOT Diam: 2.2 cm IVC: 1.9 cm LALs A4C: 6.9 cm LAAs A4C: 24.2 cm LAESV A-L A4C: 72 ml LAESV MOD A4C: 65 ml LALs A2C: 6.1 cm LAAs A2C: 23.1 cm LAESV A-L A2C: 74 ml LAESV MOD A2C: 73 ml LAESV(A-L): 78 ml LAESV Index (A-L): 40.62 ml/m Ao Diam: 4.0 cm (2.0 - 3.7) AV Cusp: 1.8 cm (1.5 - 2.6) LA Diam: 4.0 cm (2.7 - 3.8) MV EXCURSION: 17.484 mm (> 18.000) MV EF SLOPE: 80 mm/s (70 - 150) EPSS: 0.7 cm MV E [place]: 1.40 m/s MV DecT: 143 ms MV Dec [place]: 9.8 m/s MV A [place]: 0.37 m/s MV E/A Ratio: 3.80 MV PHT: 42 ms E/E': 37.05 E': 0.04 m/s LVOT Vmax: 0.98 m/s LVOT maxP.88 mmHg LVOT Vmax: 1.06 m/s LVOT Vmean: 0.59 m/s LVOT maxP.46 mmHg LVOT meanP.82 mmHg LVOT Env.Ti: 378 ms LVOT VTI: 22.3 cm AV Vmax: 2.26 m/s AV maxP.37 mmHg LAYTON Vmax, Pt: 1.6 cm LAYOTN Vmax: 1.7 cm AV Vmax: 2.31 m/s AV Vmean: 1.57 m/s AV maxP.31 mmHg AV meanP.27 mmHg AV Env.Ti: 309 ms AV VTI: 48.6 cm [place]TON Vmax: 1.7 cm L[place] (VTI): 1.7 cm L[place]TON Vmax, Pt: 1.5 cm TR Vmax: 2.72 m/s TR maxP.57 mmHg RAP: 5.00 mmHg RVSP: 34.57 mmHg FINDINGS -------- This was a technically good study. The left ventricular size is normal. There is borderline concentric left ventricular hypertrophy. Overall left ventricular systolic function is normal with, an EF between 55 - 60 %. The right ventricle is mildly enlarged. LA is severely dilated >40 ml/m2 The right atrium is normal in size. Aortic valve is trileaflet and is moderately thickened. There is mild aortic stenosis present. Peak/mean gradient across the Aortic Valve is 21.31mmHg / 11.27mmHg. The mitral valve leaflets are mildly thickened. Mild mitral annular calcification present. Mild mitral regurgitation is present. Mild tricuspid regurgitation present. There is mild pulmonary hypertension. The right ventricular systolic pressure, as measured by Doppler, is 34.57mmHg. Moderate pulmonic regurgitation. The aortic root is dilated measuring 4.0cm. Normal inferior vena cava with normal inspiratory collapse consistent with estimated right atrial pressure of 5 mmHg. There is no pericardial effusion. CONCLUSIONS -------- 1. This was a technically good study. 2. Peak/mean gradient across the Aortic Valve is 21.31mmHg / 11.27mmHg. 3. The mitral valve leaflets are mildly thickened. 4. Mild mitral annular calcification present. 5. Mild mitral regurgitation is present. 6. Mild tricuspid regurgitation present. 7. There is mild pulmonary hypertension. 8. The right ventricular systolic pressure, as measured by Doppler, is 34.57mmHg. 9. Moderate pulmonic regurgitation. 10. The aortic root is dilated measuring 4.0cm. 11. Normal inferior vena cava with normal inspiratory collapse consistent with estimated right atrial pressure of 5 mmHg. 12. The left ventricular size is normal. 13. There is no pericardial effusion. 14. There is borderline concentric left ventricular hypertrophy. 15. Overall left ventricular systolic function is normal with, an EF between 55 - 60 %. 16. The right ventricle is mildly enlarged. 17. LA is severely dilated >40 ml/m2 18. The right atrium is normal in size. 19. Aortic valve is trileaflet and is moderately thickened. 20. There is mild aortic stenosis present. [employer]OCK[employer] KEEPER: Eden Alarcon RDCS
[2017-07-01] MEDS ORDERED: HEPARIN SODIUM,PORCINE 5,000 UNIT/ML 1 ML VIAL IV PRN ×2 (11:57→13:26)
--- NOTE | 2017-07-01 11:57 | P.CRDCN ---
History of Present Illness Consult date: 07/01/17 Requesting physician: Babak Ruiz Reason for Consult (text): CVA Chief complaint: CVA History of present illness: This is a pleasant 87-year-old gentleman who follows regularly with Dr. Cayla Burger in the office. He has a known history of coronary artery disease with prior stent placement, history also of hypertension, hyperlipidemia, prior pacemaker, mild to moderate aortic stenosis, chronic atrial fibrillation for which the patient is on Coumadin. Patient presented to the hospital with symptoms of expressive aphasia. He states that he was sitting in a chair, he was leaning over to nut picker something off the floor. Patient states that he continued to stay slumped over, his was speaking to him, he states he could hear her fine he tried to answer but was unable to speak. They called their son who then brought him to the hospital. He states that when he was asked questions on arrival here, he could not answer further questions or think of the answers at that time. At the time of my examination this morning he is speaking appropriately and answering questions appropriately. He denies having any weakness on either side of his body. No prior history of stroke. He does take Coumadin for anticoagulation for his atrial fibrillation, however his INR was subtherapeutic on admission. Hemoglobin 13.6, platelet count 160, potassium 4.5, BUN 12, creatinine 1.2. Opponents negative 3. EKG on admission showed a paced rhythm with underlying atrial fibrillation. CAT scan of the brain did not reveal any acute intracranial hemorrhage or midline shift. Moderate to severe age-related cerebral atrophy without any significant change. CAT scan of the chest revealed chronic nodular pulmonary infiltrate similar to prior. Mild aneurysmal cavitation of the ascending aorta at 4.4 cm. Carotid Doppler study no significant stenosis. Past Medical History Past Medical History: Atrial Fibrillation, Coronary Artery Disease (CAD), Chest Pain / Angina, Heart Failure, Hyperlipidemia, Hypertension, Myocardial Infarction ([place]), Osteoarthritis (OA), Pneumonia, Prostate Disorder, Syncope Additional Past Medical History / Comment(s): peripheral neuropathy hands/arms, legs, feet. 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 pvd, djd, diverticulitis, chronic back pain Last Myocardial Infarction Date:: 2011 History of Any Multi-Drug Resistant Organisms: None Reported Past Surgical History: AICD, Heart Catheterization, Heart Catheterization With Stent, Pacemaker Additional Past Surgical History / Comment(s): cataracts sx, laser sx for glaucoma,vasectomy,colonoscopy/polypectpmy-benign, pain clinic procedure, hemorrhoidectomy, rt carpal tunnel release. Past Anesthesia/Blood Transfusion Reactions: No Reported Reaction Date of Last Stent Placement:: 2011 Type of Cardiac Device: Permanent Pacemaker Device Placement Date:: k Smoking Status: Former smoker - Past Family History Mother Family Medical History: Myocardial Infarction ([place]) Father Family Medical History: Cancer Additional Family Medical History / Comment(s): Bone CA, heart issues Medications and Allergies Home Medications Medication Instructions Recorded Confirmed Type Aspirin 81 mg PO DAILY 04/10/17 06/30/17 History Magnesium 200 mg PO DAILY 04/10/17 06/30/17 History Multivit-Min/FA/Lycopen/Lutein 1 tab PO DAILY 04/10/17 06/30/17 History [Centrum Silver Men Tablet] Omeprazole 20 mg PO BID 04/10/17 06/30/17 History Warfarin [Coumadin] 2.5 mg PO TUTHSA 04/10/17 06/30/17 History Warfarin [Coumadin] 5 mg PO SUMOWEFR 04/10/17 06/30/17 History Digoxin [Lanoxin] 125 mcg PO HS 04/11/17 06/30/17 History Gabapentin [Neurontin] 100 mg PO TID #90 cap 04/12/17 06/30/17 Rx Metoprolol Tartrate [Lopressor] 25 mg PO BID #60 tab 04/12/17 06/30/17 Rx Tamsulosin HCl [Flomax] 0.4 mg PO DAILY 06/30/17 06/30/17 History Vits A,C,E/Lutein/Minerals 1 tab PO DAILY 06/30/17 06/30/17 History [Ocuvite with Lutein Tablet] Allergies Allergy/AdvReac Type Severity Reaction Status Date / Time No Known Allergies Allergy Verified 06/30/17 15:24 Physical Exam Vitals: Vital Signs Temp Pulse Pulse Pulse Resp BP BP 07/01/17 08:00 97.5 F L 88 16 151/90 07/01/17 04:00 97.8 F 65 16 128/70 07/01/17 00:00 97.8 F 70 16 138/77 06/30/17 22:00 135/79 06/30/17 21:36 135/79 06/30/17 20:00 96.5 F L 79 18 155/91 06/30/17 18:20 97.8 F 82 16 170/99 06/30/17 16:36 97.8 F 68 20 134/86 06/30/17 16:00 60 18 149/80 06/30/17 14:33 97.2 F L 18 166/88 Pulse Ox 07/01/17 08:00 98 07/01/17 04:00 93 L 07/01/17 00:00 93 L 06/30/17 22:00 06/30/17 21:36 06/30/17 20:00 94 L 06/30/17 18:20 96 06/30/17 16:36 98 06/30/17 16:00 96 06/30/17 14:33 Intake and Output 06/30/17 07/01/17 07/01/17 22:59 06:59 14:59 Intake Total 1000 1100 180 Output Total 650 730 250 Balance 350 370 -70 Intake: IV 800 1100 Sodium Chloride 0.9% 1, 800 1100 000 ml @ 100 mls/hr IV . Q10H [facility] Rx#:[id number] Oral 200 180 Output: Urine 650 730 250 Other: Voiding Method Urinal Urinal Weight 69.3 kg PHYSICAL EXAMINATION: HEENT: Head is atraumatic, normocephalic. Pupils equal, round. Neck is supple. There is no elevated jugular venous pressure. HEART EXAMINATION: Heart S1 and S2 irregularly irregular a systolic ejection murmur is heard. CHEST EXAMINATION: Lungs are clear to auscultation and precussion. No chest wall tenderness is noted on palpation or with deep breathing. ABDOMEN: Soft, nontender. Bowel sounds are heard. No organomegaly noted. EXTREMITIES: 2+ peripheral pulses with no evidence of peripheral edema and no calf tenderness noted]. NEUROLOGIC [patient is awake, alert and oriented -3.] . Results 06/30/17 14:52 06/30/17 14:52 Cardiac Enzymes 06/30/17 06/30/17 Range/Units 14:52 14:52 AST 24 (17-59) U/L CK-MB (CK-2) 0.7 (0.0-2.4) ng/mL Troponin I <0.012 (0.000-0.034) ng/mL Coagulation 06/30/17 Range/Units 14:52 PT 12.9 H (9.0-12.0) sec APTT 29.8 (22.0-30.0) sec Lipids 07/01/17 Range/Units 06:02 Triglycerides 109 (<150) mg/dL Cholesterol 127 (<200) mg/dL HDL Cholesterol 39 L (40-60) mg/dL CBC 06/30/17 Range/Units 14:52 WBC 4.7 (3.8-10.6) k/uL RBC 3.95 L (4.30-5.90) m/uL Hgb 13.6 (13.0-17.5) gm/dL Hct 40.5 (39.0-53.0) % Plt Count 160 (150-450) k/uL Comprehensive Metabolic Panel 06/30/17 Range/Units 14:52 Sodium 139 (137-145) mmol/L Potassium 4.5 (3.5-5.1) mmol/L Chloride 103 (98-107) mmol/L Carbon Dioxide 27 (22-30) mmol/L BUN 12 (9-20) mg/dL Creatinine 1.27 H (0.66-1.25) mg/dL Glucose 85 (74-99) mg/dL Calcium 9.1 (8.4-10.2) mg/dL AST 24 (17-59) U/L ALT 25 (21-72) U/L Alkaline Phosphatase 90 (38-126) U/L Total Protein 6.9 (6.3-8.2) g/dL Albumin 4.0 (3.5-5.0) g/dL Current Medications Generic Name Dose Route Start Last Admin Trade Name Freq PRN Reason Stop Dose Admin Aspirin 81 mg 07/01/17 09:00 07/01/17 09:15 Aspirin PO 81 mg DAILY LO Administration Digoxin 125 mcg 06/30/17 21:00 06/30/17 22:43 Lanoxin PO 125 mcg HS LO Administration Enoxaparin Sodium 40 mg 06/30/17 22:15 07/01/17 09:14 Lovenox SQ 40 mg DAILY LO Administration Gabapentin 100 mg 07/01/17 09:00 07/01/17 09:15 Neurontin PO 100 mg TID LO Administration Sodium Chloride 1,000 mls @ 100 mls/hr 06/30/17 16:45 07/01/17 11:25 Saline 0.9% IV 100 mls/hr .Q10H LO Administration Magnesium Oxide 400 mg 07/01/17 09:00 07/01/17 09:15 Mag-Ox PO 400 mg DAILY LO Administration Metoprolol Tartrate 25 mg 06/30/17 21:00 07/01/17 09:16 Lopressor PO 25 mg BID LO Administration Miscellaneous Information 1 each 06/30/17 16:37 Rx Info: Iv Contrast Was Given MISCELLANE 07/02/17 16:37 DAILY PRN Per Protocol Pantoprazole Sodium 40 mg 07/01/17 07:30 07/01/17 07:02 Protonix PO 40 mg [id number] LO Administration Tamsulosin HCl 0.4 mg 07/01/17 09:00 07/01/17 09:16 Flomax PO 0.4 mg DAILY LO Administration Intake and Output 06/30/17 07/01/17 07/01/17 22:59 06:59 14:59 Intake Total 1000 1100 180 Output Total 650 730 250 Balance 350 370 -70 Intake: IV 800 1100 Sodium Chloride 0.9% 1, 800 1100 000 ml @ 100 mls/hr IV . Q10H [facility] Rx#:[id number] Oral 200 180 Output: Urine 650 730 250 Other: Voiding Method Urinal Urinal Weight 69.3 kg 06/30/17 14:52 06/30/17 14:52 EKG Interpretations (text) EKG shows a paced rhythm with underlying atrial fibrillation. Assessment and Plan Plan: Assessment and Plan #1 symptoms of expressive aphasia, suggestive of possible CVA. Initial CAT scan did not reveal any acute abnormality. #2 history of coronary artery disease with prior PCI #3 hypertension #4 hyperlipidemia #5 chronic persistent atrial fibrillation, on Coumadin for anticoagulation. Subtherapeutic #6 moderate aortic stenosis #7 prior pacemaker implantation Plan Patient is only on Lovenox 40milligrams daily, which is not adequate dosing for the patient's atrial fibrillation. We will discontinue the Lovenox, start the patient on Eliquis 2-1/2 mg one tablet by mouth twice a day first dose now obtain echocardiogram with Doppler study. DNP note has been reviewed, I agree with a documented findings and plan of care. Patient was seen and examined.
[2017-07-01] MEDS ORDERED: HEPARIN SODIUM,PORCINE/D5W PMX 25,000 UNIT in DEXTROSE/WATER 1 500ML.BAG IV SCH (12:00)
[2017-07-01] MEDS ORDERED: APIXABAN 2.5 MG TABLET PO SCH (12:15)
[2017-07-01 12:20] LABS: Basophils % (A) 0 %; CH 33.3; CHCM 32.1; Eosinophils # (A) 0.1 k/uL (0-0.7); Eosinophils % (A) 1 %; HDW 2.35; HGB 12.5 gm/dL (13.0-17.5); Luc # (Auto) 0.14; Luc % (Auto) 3; Lymphocytes # (A) 1.5 k/uL (1.0-4.8); Lymphocytes % (A) 37 %; MCH 34.3 pg (25.0-35.0); MCHC 32.8 g/dL (31.0-37.0); MCV 104.4 fL (80.0-100.0); Macrocytosis Slight; Mean Platelet Volume 8.1; Monocytes # (A) 0.3 k/uL (0-1.0); Monocytes % (A) 8 %; Neutrophils # (A) 2.1 k/uL (1.3-7.7); Neutrophils % (A) 50 %; RBC 3.64 m/uL (4.30-5.90); RDW 13.3 % (11.5-15.5); WBC 4.2 k/uL (3.8-10.6); WBC (Perox) 4.28
[2017-07-01 12:28] LABS: INR 1.4 (<1.2); Partial Thromboplastin Time 33.1 sec (22.0-30.0); Prothrombin Time 13.5 sec (9.0-12.0)
--- NOTE | 2017-07-01 12:56 | P.HPIM ---
History of Present Illness H&P Date: 07/01/17 Chief Complaint: Difficulty with speech History of present complaint: This is a very pleasant 87 year old patient of Dr. randall. Chronic stable medical conditions include peripheral neuropathy, hypertension, hyperlipidemia, coronary artery disease with stent, permanent pacemaker, on Coumadin. Patient son came home and found patient's speech to be very slow and somewhat lethargic but no other focal symptoms. Hence patient got into the hospital. Patient's speech since then has improved but not back to baseline. Denies any headache, no change in vision, no other focal weakness. Patient able to swallow. GEN.: Tired EYES: None HEENT: Decreased hearing NECK: None RESPIRATORY: None CARDIOVASCULAR: None GASTROINTESTINAL: None GENITOURINARY: None MUSCULOSKELETAL: None LYMPHATICS: None HEMATOLOGICAL: None PSYCHIATRY: None NEUROLOGICAL: As above Past medical history: Peripheral neuropathy, hypertension, hyperlipidemia, coronary artery disease stent, permanent pacemaker, atrial fibrillation on Coumadin. Past surgical history: AICD, cardiac cath with stent, pacemaker, Surgery, laser surgery for glaucoma, vasectomy, polypectomy, pain. Procedure, hemorrhoidectomy, right carpal tunnel release, permanent pacemaker Home medications: Meds reviewed in the electronic records - ALLERGIES: None Social history: Patient is does not smoke alcohol occasionally. Patient does smoke for 36 years half a pack a day stop in [id number] patient did work in the [employer] in the [place] [employer] and also retired from [employer] work. Family history: Myocardial infarction and bone cancer VITAL SIGNS: 97.2, 18, 166-88, 96% room air upon presentation GENERAL: [Average built, laying in bed comfortable. EYES: Pupils equal. Conjunctiva normal. HEENT: External appearance of nose and ears normal, oral cavity grossly normal. NECK: JVD not raised; masses not palpable. HEART: First and second heart sounds are normal; no edema. LUNGS: Respiratory rate normal; decreased breath sounds. ABDOMEN: Soft, nontender, liver spleen not palpable, no masses palpable. LYMPHATICS: No lymph nodes palpable in the axilla and neck. PSYCH: Alert and oriented x3; mood and affect normal. NEUROLOGICAL: Cranial nerves grossly intact; speech is slow as patient's wordsdoubt no facial asymmetry, power and sensation grossly intact MUSCULOSKELETAL: Evidence of osteoarthritis in multiple joints Investigations: White count 4.7,, potassium 4.5. 2-D echo shows moderate pulmonary regurgitation, carotid Doppler did not show any critical stenosis, computed tomography scan of the brain-no acute reported to do show moderate to severe diffuse age-related cerebral atrophy Assessment: -Acute stroke affecting the speech area, likely right MCA territory possible embolic in a patient known atrial fibrillation -Peripheral neuropathy, idiopathic -Essential hypertension -Hyperlipidemia -Coronary artery disease disease but his chest and -Permanent pacemaker -Persistent atrial fibrillation -Granulomatous lung disease chronic isn't dramatic -Ascending aortic aneurysm 4.4 cm -Moderate pulmonary regurgitation, nondramatic Plan: Patient is on aspirin. Home medications are resumed. Coumadin has been held. ALLERGY was consulted who started the patient Eliquis. We will consult speech therapy. Care was discussed with the patient. Questions were answered. Past Medical History Past Medical History: Atrial Fibrillation, Coronary Artery Disease (CAD), Chest Pain / Angina, Heart Failure, Hyperlipidemia, Hypertension, Myocardial Infarction ([place]), Osteoarthritis (OA), Pneumonia, Prostate Disorder, Syncope Additional Past Medical History / Comment(s): peripheral neuropathy hands/arms, legs, feet. 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 pvd, djd, diverticulitis, chronic back pain Last Myocardial Infarction Date:: 2011 History of Any Multi-Drug Resistant Organisms: None Reported Past Surgical History: AICD, Heart Catheterization, Heart Catheterization With Stent, Pacemaker Additional Past Surgical History / Comment(s): cataracts sx, laser sx for glaucoma,vasectomy,colonoscopy/polypectpmy-benign, pain clinic procedure, hemorrhoidectomy, rt carpal tunnel release. Past Anesthesia/Blood Transfusion Reactions: No Reported Reaction Date of Last Stent Placement:: 2011 Type of Cardiac Device: Permanent Pacemaker Device Placement Date:: Smoking Status: Former smoker - Past Family History Mother Family Medical History: Myocardial Infarction ([place]) Father Family Medical History: Cancer Additional Family Medical History / Comment(s): Bone CA, heart issues Medications and Allergies Home Medications Medication Instructions Recorded Confirmed Type Aspirin 81 mg PO DAILY 04/10/17 06/30/17 History Magnesium 200 mg PO DAILY 04/10/17 06/30/17 History Multivit-Min/FA/Lycopen/Lutein 1 tab PO DAILY 04/10/17 06/30/17 History [Centrum Silver Men Tablet] Omeprazole 20 mg PO BID 04/10/17 06/30/17 History Warfarin [Coumadin] 2.5 mg PO TUTHSA 04/10/17 06/30/17 History Warfarin [Coumadin] 5 mg PO SUMOWEFR 04/10/17 06/30/17 History Digoxin [Lanoxin] 125 mcg PO HS 04/11/17 06/30/17 History Gabapentin [Neurontin] 100 mg PO TID #90 cap 04/12/17 06/30/17 Rx Metoprolol Tartrate [Lopressor] 25 mg PO BID #60 tab 04/12/17 06/30/17 Rx Tamsulosin HCl [Flomax] 0.4 mg PO DAILY 06/30/17 06/30/17 History Vits A,C,E/Lutein/Minerals 1 tab PO DAILY 06/30/17 06/30/17 History [Ocuvite with Lutein Tablet] Allergies Allergy/AdvReac Type Severity Reaction Status Date / Time No Known Allergies Allergy Verified 06/30/17 15:24 Results CBC & Chem 7: 07/01/17 06:02 06/30/17 14:52
--- NOTE | 2017-07-01 13:18 | P.CRDCN ---
History of Present Illness History of present illness: Elderly gentleman with known atrial fibrillation with subtherapeutic INRs on Coumadin 5 mg alternating with 2.5 mg for a few months presenting with a stroke associated with speech disturbance Could not afford xarelto and it cost him $300 a month Denies any blurring of vision or headaches chest pain shortness of breath, he is rate controlled for A. fib he has [id number] aortic stenosis Suggest Heparin until INR is greater than 2.0 Coumadin 5 mg by mouth daily Patient's INR must be weaned 2.0 and 3.0 A full dictation by Dr. juárez Past Medical History Past Medical History: Atrial Fibrillation, Coronary Artery Disease (CAD), Chest Pain / Angina, Heart Failure, Hyperlipidemia, Hypertension, Myocardial Infarction ([place]), Osteoarthritis (OA), Pneumonia, Prostate Disorder, Syncope Additional Past Medical History / Comment(s): peripheral neuropathy hands/arms, legs, feet. 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 pvd, djd, diverticulitis, chronic back pain Last Myocardial Infarction Date:: 2011 History of Any Multi-Drug Resistant Organisms: None Reported Past Surgical History: AICD, Heart Catheterization, Heart Catheterization With Stent, Pacemaker Additional Past Surgical History / Comment(s): cataracts sx, laser sx for glaucoma,vasectomy,colonoscopy/polypectpmy-benign, pain clinic procedure, hemorrhoidectomy, rt carpal tunnel release. Past Anesthesia/Blood Transfusion Reactions: No Reported Reaction Date of Last Stent Placement:: 2011 Type of Cardiac Device: Permanent Pacemaker Device Placement Date:: Smoking Status: Former smoker - Past Family History Mother Family Medical History: Myocardial Infarction ([place]) Father Family Medical History: Cancer Additional Family Medical History / Comment(s): Bone CA, heart issues Medications and Allergies Home Medications Medication Instructions Recorded Confirmed Type Aspirin 81 mg PO DAILY 04/10/17 06/30/17 History Magnesium 200 mg PO DAILY 04/10/17 06/30/17 History Multivit-Min/FA/Lycopen/Lutein 1 tab PO DAILY 04/10/17 06/30/17 History [Centrum Silver Men Tablet] Omeprazole 20 mg PO BID 04/10/17 06/30/17 History Warfarin [Coumadin] 2.5 mg PO TUTHSA 04/10/17 06/30/17 History Warfarin [Coumadin] 5 mg PO SUMOWEFR 04/10/17 06/30/17 History Digoxin [Lanoxin] 125 mcg PO HS 04/11/17 06/30/17 History Gabapentin [Neurontin] 100 mg PO TID #90 cap 04/12/17 06/30/17 Rx Metoprolol Tartrate [Lopressor] 25 mg PO BID #60 tab 04/12/17 06/30/17 Rx Tamsulosin HCl [Flomax] 0.4 mg PO DAILY 06/30/17 06/30/17 History Vits A,C,E/Lutein/Minerals 1 tab PO DAILY 06/30/17 06/30/17 History [Ocuvite with Lutein Tablet] Allergies Allergy/AdvReac Type Severity Reaction Status Date / Time No Known Allergies Allergy Verified 06/30/17 15:24 Physical Exam Vitals: Vital Signs Temp Pulse Pulse Pulse Resp BP BP 07/01/17 12:25 07/01/17 08:00 97.5 F L 88 16 151/90 07/01/17 04:00 97.8 F 65 16 128/70 07/01/17 00:00 97.8 F 70 16 138/77 06/30/17 22:00 135/79 06/30/17 21:36 135/79 06/30/17 20:00 96.5 F L 79 18 155/91 06/30/17 18:20 97.8 F 82 16 170/99 06/30/17 16:36 97.8 F 68 20 134/86 06/30/17 16:00 60 18 149/80 06/30/17 14:33 97.2 F L 18 166/88 Pulse Ox 07/01/17 12:25 98 07/01/17 08:00 98 07/01/17 04:00 93 L 07/01/17 00:00 93 L 06/30/17 22:00 06/30/17 21:36 06/30/17 20:00 94 L 06/30/17 18:20 96 06/30/17 16:36 98 06/30/17 16:00 96 06/30/17 14:33 Intake and Output 06/30/17 07/01/17 07/01/17 22:59 06:59 14:59 Intake Total 1000 1100 180 Output Total 650 730 250 Balance 350 370 -70 Intake: IV 800 1100 Sodium Chloride 0.9% 1, 800 1100 000 ml @ 100 mls/hr IV . Q10H [facility] Rx#:[id number] Oral 200 180 Output: Urine 650 730 250 Other: Voiding Method Urinal Urinal Weight 69.3 kg Results 07/01/17 06:02 06/30/17 14:52 Cardiac Enzymes 06/30/17 06/30/17 Range/Units 14:52 14:52 AST 24 (17-59) U/L CK-MB (CK-2) 0.7 (0.0-2.4) ng/mL Troponin I <0.012 (0.000-0.034) ng/mL Coagulation 06/30/17 07/01/17 Range/Units 14:52 06:02 PT 12.9 H 13.5 H (9.0-12.0) sec APTT 29.8 33.1 H (22.0-30.0) sec Lipids 07/01/17 Range/Units 06:02 Triglycerides 109 (<150) mg/dL Cholesterol 127 (<200) mg/dL HDL Cholesterol 39 L (40-60) mg/dL CBC 06/30/17 07/01/17 Range/Units 14:52 06:02 WBC 4.7 4.2 (3.8-10.6) k/uL RBC 3.95 L 3.64 L (4.30-5.90) m/uL Hgb 13.6 12.5 L (13.0-17.5) gm/dL Hct 40.5 38.0 L (39.0-53.0) % Plt Count 160 164 (150-450) k/uL Comprehensive Metabolic Panel 06/30/17 Range/Units 14:52 Sodium 139 (137-145) mmol/L Potassium 4.5 (3.5-5.1) mmol/L Chloride 103 (98-107) mmol/L Carbon Dioxide 27 (22-30) mmol/L BUN 12 (9-20) mg/dL Creatinine 1.27 H (0.66-1.25) mg/dL Glucose 85 (74-99) mg/dL Calcium 9.1 (8.4-10.2) mg/dL AST 24 (17-59) U/L ALT 25 (21-72) U/L Alkaline Phosphatase 90 (38-126) U/L Total Protein 6.9 (6.3-8.2) g/dL Albumin 4.0 (3.5-5.0) g/dL Current Medications Generic Name Dose Route Start Last Admin Trade Name Geeta PRN Reason Stop Dose Admin Aspirin 81 mg 07/01/17 09:00 07/01/17 09:15 Aspirin PO 81 mg DAILY LO Administration Digoxin 125 mcg 06/30/17 21:00 06/30/17 22:43 Lanoxin PO 125 mcg HS LO Administration Gabapentin 100 mg 07/01/17 09:00 07/01/17 09:15 Neurontin PO 100 mg TID LO Administration Magnesium Oxide 400 mg 07/01/17 09:00 07/01/17 09:15 Mag-Ox PO 400 mg DAILY LO Administration Metoprolol Tartrate 25 mg 06/30/17 21:00 07/01/17 09:16 Lopressor PO 25 mg BID LO Administration Miscellaneous Information 1 each 06/30/17 16:37 Rx Info: Iv Contrast Was Given MISCELLANE 07/02/17 16:37 DAILY PRN Per Protocol Pantoprazole Sodium 40 mg 07/01/17 07:30 07/01/17 07:02 Protonix PO 40 mg [id number] LO Administration Tamsulosin HCl 0.4 mg 07/01/17 09:00 07/01/17 09:16 Flomax PO 0.4 mg DAILY LO Administration Warfarin Sodium 5 mg 07/02/17 18:00 Coumadin PO DAILY@1800 LO Warfarin Sodium 5 mg 07/01/17 13:30 Coumadin PO 07/01/17 13:31 ONCE ONE Intake and Output 06/30/17 07/01/17 07/01/17 22:59 06:59 14:59 Intake Total 1000 1100 180 Output Total 650 730 250 Balance 350 370 -70 Intake: IV 800 1100 Sodium Chloride 0.9% 1, 800 1100 000 ml @ 100 mls/hr IV . Q10H [facility] Rx#:[id number] Oral 200 180 Output: Urine 650 730 250 Other: Voiding Method Urinal Urinal Weight 69.3 kg 07/01/17 06:02 06/30/17 14:52
[2017-07-01] MEDS ORDERED: WARFARIN 5 MG TAB PO ONE (13:30)
[2017-07-01] MEDS: HEPARIN SODIUM,PORCINE/D5W PMX 25,000 UNIT in DEXTROSE/WATER 1 500ML.BAG IV SCH (13:51)
--- NOTE | 2017-07-01 17:22 | P.CNNES ---
History of Present Illness Consult date: 06/30/17 Requesting physician: Simeon Dexter Reason for Consult: CVA Chief complaint: CVA History of Present Illness: Patient is an 87-year-old male being consult by neurology for CVA. Patient was at home and found by his son with speech to be extremely slow and patient was extremely lethargic but no other focal symptoms. Patient stated that while at home he was seated in a chair reached for an object from his chair experienced brief disorientation then began experiencing right-sided upper and lower extremity numbness and tingling. He is uncertain if he lost complete sensation in his right upper extremity for any period of time. During the incident and prior to transport, patient then began having left-sided facial and left upper extremity weakness. Patient presented with difficulty with speech as well as difficulty with memory. On presentation he denied any headache, vision change or focal weakness. Patient states that his left-sided deficits, speech difficulty with word finding as well as his concentration had improved during the late evening hours while sleeping and upon waking this morning his symptoms had decreased by about 75-80%. On contact, the patient states that his symptoms are now resolved with the exception of his left upper lip perioral drooping which is mild to moderate. Patient does not have any difficulty swallowing or decreased use of the tongue. Patient is alert oriented 3, semi-fowlers in bed in no acute distress. Review of Systems all systems not noted in HPI or negative Past Medical History Past Medical History: Atrial Fibrillation, Coronary Artery Disease (CAD), Chest Pain / Angina, Heart Failure, Hyperlipidemia, Hypertension, Myocardial Infarction ([place]), Osteoarthritis (OA), Pneumonia, Prostate Disorder, Syncope Additional Past Medical History / Comment(s): peripheral neuropathy hands/arms, legs, feet. 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 pvd, djd, diverticulitis, chronic back pain Last Myocardial Infarction Date:: 2011 History of Any Multi-Drug Resistant Organisms: None Reported Past Surgical History: AICD, Heart Catheterization, Heart Catheterization With Stent, Pacemaker Additional Past Surgical History / Comment(s): cataracts sx, laser sx for glaucoma,vasectomy,colonoscopy/polypectpmy-benign, pain clinic procedure, hemorrhoidectomy, rt carpal tunnel release. Past Anesthesia/Blood Transfusion Reactions: No Reported Reaction Date of Last Stent Placement:: 2011 Type of Cardiac Device: Permanent Pacemaker Device Placement Date:: unk Smoking Status: Former smoker - Past Family History Mother Family Medical History: Myocardial Infarction ([place]) Father Family Medical History: Cancer Additional Family Medical History / Comment(s): Bone CA, heart issues Medications and Allergies Home Medications Medication Instructions Recorded Confirmed Type Aspirin 81 mg PO DAILY 04/10/17 06/30/17 History Magnesium 200 mg PO DAILY 04/10/17 06/30/17 History Multivit-Min/FA/Lycopen/Lutein 1 tab PO DAILY 04/10/17 06/30/17 History [Centrum Silver Men Tablet] Omeprazole 20 mg PO BID 04/10/17 06/30/17 History Warfarin [Coumadin] 2.5 mg PO TUTHSA 04/10/17 06/30/17 History Warfarin [Coumadin] 5 mg PO SUMOWEFR 04/10/17 06/30/17 History Digoxin [Lanoxin] 125 mcg PO HS 04/11/17 06/30/17 History Gabapentin [Neurontin] 100 mg PO TID #90 cap 04/12/17 06/30/17 Rx Metoprolol Tartrate [Lopressor] 25 mg PO BID #60 tab 04/12/17 06/30/17 Rx Tamsulosin HCl [Flomax] 0.4 mg PO DAILY 06/30/17 06/30/17 History Vits A,C,E/Lutein/Minerals 1 tab PO DAILY 06/30/17 06/30/17 History [Ocuvite with Lutein Tablet] Allergies Allergy/AdvReac Type Severity Reaction Status Date / Time No Known Allergies Allergy Verified 06/30/17 15:24 Physical Examination - Vital Signs Vital Signs: Vital Signs Temp Pulse Resp BP Pulse Ox 07/01/17 12:25 98 07/01/17 08:00 97.5 F L 88 16 151/90 98 07/01/17 04:00 97.8 F 65 16 128/70 93 L 07/01/17 00:00 97.8 F 70 16 138/77 93 L 06/30/17 22:00 135/79 06/30/17 21:36 135/79 06/30/17 20:00 96.5 F L 79 18 155/91 94 L 06/30/17 18:20 97.8 F 82 16 170/99 96 Intake and Output 07/01/17 07/01/17 07/01/17 06:59 14:59 22:59 Intake Total 1100 280 Output Total 730 250 Balance 370 30 Intake: IV 1100 Sodium Chloride 0.9% 1, 1100 000 ml @ 100 mls/hr IV . Q10H [facility] Rx#:[id number] Oral 280 Output: Urine 730 250 Other: Voiding Method Urinal # Voids 1 Weight 69.3 kg Constitutional: AOx3, cooperative HEENT: NC/AT, no facial asymmetry is seen. 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 Neurological: CN II-XII in tact, patient was AOx3, speech and language are normal, unilateralizing weakness- left perioral drooping, no seizure activity note on physical exam. Sensation was normal. Integementary: no rash, no erythema Psychiatric: mood and affect appropriate Results - Laboratory Findings CBC and BMP: 07/01/17 06:02 06/30/17 14:52 Abnormal Lab Findings: Abnormal Labs 06/30/17 06/30/17 06/30/17 14:52 14:52 14:52 RBC 3.95 L Hgb Hct MCV 102.5 H PT INR APTT Creatinine 1.27 H POC Glucose (mg/dL) Total Creatine Kinase 49 L HDL Cholesterol 06/30/17 06/30/17 07/01/17 14:52 14:53 06:02 RBC Hgb Hct MCV PT 12.9 H INR 1.3 H APTT Creatinine POC Glucose (mg/dL) 62 L Total Creatine Kinase HDL Cholesterol 39 L 07/01/17 07/01/17 06:02 06:02 RBC 3.64 L Hgb 12.5 L Hct 38.0 L MCV 104.4 H PT 13.5 H INR 1.4 H APTT 33.1 H Creatinine POC Glucose (mg/dL) Total Creatine Kinase HDL Cholesterol - Diagnostic Findings Additional findings: CT brain: No acute intracranial hemorrhage or midline shift. Moderate to severe diffuse age-related cerebral atrophy and mild to moderate chronic small vessel ischemic change redemonstrated without significant change from prior study. Carotid Doppler: There is antegrade flow in the vertebral arteries. Images measurements suggest 30-40% stenosis in both internal carotid arteries. EEG ordered Assessment and Plan (1) Cerebrovascular accident Status: Acute Plan: Patient does appear to have experienced a CVA. Patient's only current remaining symptoms are the left-sided perioral droop. Patient admits that he is approximately 95% returned to baseline. Speech is return to normal, cognition is return to normal and unilateral deficits have resolved. We will complete further diagnostic workup to include EEG, serum homocystine level. Lipid panel has been completed. Only noted abnormality is low HDL at 39. Treatment: Patient will remain on 81 mg aspirin continue neuro checks as previously scheduled Status: Neurology will continue to follow provide further updates as needed or warranted. Feel free to contact our office with any questions. I discussed the patient's pertinent medical information with Dr. Qureshi. He agrees with the plan of care as implemented.
[2017-07-01] MEDS: MELATONIN 3 MG TABLET PO SCH (20:53)
[2017-07-01] MEDS: DIGOXIN 125 MCG TAB PO SCH (20:53)
[2017-07-02 06:27] LABS: Basophils % (A) 0 %; CH 34.7; CHCM 33.5; Eosinophils % (A) 1 %; HCT 37.8 % (39.0-53.0); HDW 2.39; HGB 12.4 gm/dL (13.0-17.5); Luc # (Auto) 0.14; Luc % (Auto) 3; Lymphocytes # (A) 1.3 k/uL (1.0-4.8); Lymphocytes % (A) 32 %; MCH 34.1 pg (25.0-35.0); MCHC 32.7 g/dL (31.0-37.0); MCV 104.3 fL (80.0-100.0); Macrocytosis Slight; Mean Platelet Volume 7.9; Monocytes # (A) 0.4 k/uL (0-1.0); Monocytes % (A) 10 %; Neutrophils # (A) 2.3 k/uL (1.3-7.7); Neutrophils % (A) 54 %; RBC 3.63 m/uL (4.30-5.90); RDW 13.9 % (11.5-15.5); WBC 4.2 k/uL (3.8-10.6); WBC (Perox) 4.26
[2017-07-02] MEDS: PANTOPRAZOLE 40 MG TABLET PO SCH (06:38)
[2017-07-02 06:43] LABS: INR 1.2 (<1.2); Partial Thromboplastin Time 76.4 sec (22.0-30.0); Prothrombin Time 12.3 sec (9.0-12.0)
[2017-07-02] MEDS: ASPIRIN 81 MG CHEW PO SCH (08:58)
[2017-07-02] MEDS: MAGNESIUM OXIDE 400 MG TAB PO SCH (08:59)
[2017-07-02] MEDS: GABAPENTIN 100 MG CAP PO SCH ×3 (08:59→20:47)
[2017-07-02] MEDS: TAMSULOSIN 0.4 MG CAP.ER.24H PO SCH (08:59)
[2017-07-02] MEDS: METOPROLOL TARTRATE 25 MG TAB PO SCH ×2 (08:59→20:46)
--- NOTE | 2017-07-02 12:59 | P.PN ---
<Macie Orozco - Last Filed: 07/02/17 12:47> Progress Note - Text DATE OF SERVICE: 07/02/2017 PRESENTING COMPLAINT: Speech difficulties HISTORY OF PRESENT ILLNESS: 87-year-old patient who presented after his son found patient's speech to be slow and lethargic no other focal symptoms. Improved but not back to baseline after arrival to the emergency department. INTERVAL HISTORY: 07/02/2017: Patient lying in bed, no acute distress, appears comfortable. Speech remains slow but clear. No difficulty swallowing, tolerating his diet eating between 75 and on a percent of his meal, ambulatory to and from the bathroom, last BM . Awaiting EEG. REVIEW OF SYSTEMS: Done for constitutional ,cardiovascular, GI, pulmonary, neurologic with relevant findings as above. CURRENT MEDICATIONS Aspirin, digoxin, Neurontin, heparin, melatonin, Lopressor, Protonix, Flomax, Coumadin. PHYSICAL EXAM VITAL SIGNS: Temperature 96.9, pulse 88, respirations 18, blood pressure 138/72, oxygen saturation 93% on room air GENERAL APPEARANCE: Lying in bed, not in distress. EYES: Pupils equal. Conjunctiva normal. NECK: JVD not raised. Mass not palpable. RESPIRATORY: Respiratory effort normal. Lungs decreased to auscultation. CARDIOVASCULAR: First and second sounds normal. No edema. ABDOMEN: Soft. Liver and spleen not palpable. No tenderness. No mass palpable. PSYCHIATRY: Alert and oriented x3. Mood and affect normal. NEUROLOGICAL: Cranial nerves grossly intact. No facial asymmetry. Power and sensation grossly intact, speech is slow however clear. INVESTIGATIONS: Hemoglobin 12.4, INR 1.2, ASSESSMENT: -Acute stroke affecting the speech area, likely right MCA territory possible embolic in a patient known atrial fibrillation -Peripheral neuropathy, idiopathic -Essential hypertension -Hyperlipidemia -Coronary artery disease -Permanent pacemaker -Persistent atrial fibrillation -Granulomatous lung disease chronic isn't dramatic -Ascending aortic aneurysm 4.4 cm -Moderate pulmonary regurgitation, nonrheumatic PLAN: Await EEG scheduled for today. History of atrial fibrillation although currently in sinus rhythm on heparin drip receiving Coumadin INR goal between 2.0 and 3.0. BOOKKEEPING MACHINE OPERATOR statement: Patient was seen and examined by nurse practitioner Macie Orozco and all elements of the case discussed with attending Dr. Ruiz <Babak Ruiz - Last Filed: 07/02/17 19:39> Progress Note - Text Attending note. Date of service-07/02/2017 This patient was seen and examined by me . Discussed the patient with my nurse practitioner Ms. Orozco. Speech significant improvement. No new neuro symptoms. Pending EEG multiple family the bedside. Telemetry-paced rhythm On examination: Speech-nearly back to normal, heart sounds are regular Investigations: INR 1.2 Assessment and plan: IV heparin monitoring monitoring. 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 Did discuss the patient and family. Coumadin dosing to continue
[2017-07-02] MEDS: HEPARIN SODIUM,PORCINE/D5W PMX 25,000 UNIT in DEXTROSE/WATER 1 500ML.BAG IV SCH ×2 (15:48→17:20)
--- NOTE | 2017-07-02 16:50 | P.PN ---
Subjective Patient is doing well. His speech has improved. He was admitted with a stroke. INR was subtherapeutic. His A. fib rates are very well controlled with digoxin and beta blockers. His INRs have been subtherapeutic quite some time. Today his INR is 1.2 despite not being started on 5 mg by mouth every day he is on IV heparin and will remain on IV heparin until his INR has become therapeutic. On examination he is afebrile 96.9F pulse rate in the 60s and 70s blood pressure 138/70 mmHg normal respirations speech is improved Breath sounds are normal. Heart sounds S1 and S2 are irregular Abdomen is soft nontender Extremities warm no edema Impression CVA with subtherapeutic INRs with underlying atrial fibrillation and good ventricular rate control Plan Coumadin dose has now been increased to 5 mg by mouth daily INR is much be therapeutic prior to discharge Objective - Vital Signs Vital signs: Vital Signs Temp 96.9 F L 07/02/17 15:59 Pulse 72 07/02/17 15:59 Resp 16 07/02/17 15:59 BP 138/70 07/02/17 15:59 Pulse Ox 97 07/02/17 15:59 Intake & Output 07/01/17 07/02/17 07/02/17 18:59 06:59 18:59 Intake Total 520 1563.542 916 Output Total 250 750 Balance 270 813.542 916 Weight 68.6 kg Intake: IV 1280 Heparin Sodium,Porcine/ 320 D5w Pmx 25,000 unit In Dextrose/Water 1 500ml. bag @ 12 UNITS/KG/HR 16. 63 mls/hr IV .Q24H [facility] Rx #:[id number] Sodium Chloride 0.9% 1, 960 000 ml @ 100 mls/hr IV . Q10H [facility] Rx#:[id number] Intake, IV Titration 283.542 Amount Heparin Sodium,Porcine/ 283.542 D5w Pmx 25,000 unit In Dextrose/Water 1 500ml. bag @ 12 UNITS/KG/HR 16. 63 mls/hr IV .Q24H [facility] Rx #:[id number] Oral 520 916 Output: Urine 250 750 Other: Voiding Method Urinal Urinal # Voids 1 2 # Bowel Movements 1 - Labs CBC & Chem 7: 07/02/17 05:58 06/30/17 14:52 Labs: Abnormal Lab Results - Last 24 Hours (Table) 07/01/17 07/02/17 07/02/17 Range/Units 19:50 05:58 05:58 RBC 3.63 L (4.30-5.90) m/uL Hgb 12.4 L (13.0-17.5) gm/dL Hct 37.8 L (39.0-53.0) % MCV 104.3 H (80.0-100.0) fL PT 12.3 H (9.0-12.0) sec INR 1.2 H (<1.2) APTT 66.9 H 76.4 H (22.0-30.0) sec 07/02/17 Range/Units 13:21 RBC (4.30-5.90) m/uL Hgb (13.0-17.5) gm/dL Hct (39.0-53.0) % MCV (80.0-100.0) fL PT (9.0-12.0) sec INR (<1.2) APTT 53.5 H (22.0-30.0) sec
[2017-07-02] MEDS ORDERED: WARFARIN 5 MG TAB PO SCH (18:00)
[2017-07-02] MEDS: MELATONIN 3 MG TABLET PO SCH (20:46)
[2017-07-02] MEDS: DIGOXIN 125 MCG TAB PO SCH (20:46)
--- NOTE | 2017-07-02 22:39 | P.PN ---
Subjective Principal diagnosis: embolic CVA July 02, 2017: The patient was ambulating in the room upon contact today. Patient was alert and oriented 3. Expressed he had no return of any symptoms or increase in previous symptomology. Patient also states that his speech is improving still today. Minimal perioral droop was observed. Speech, PT and OT are following. Recommend continuation outpatient if necessary for speech. Otherwise, patient is overall improving and progressing well. July 01, 2017: Patient is an 87-year-old male being followed by neurology for CVA. Patient was at home was found by his son with speech to be extremely slow and patient was extremely lethargic but no other focal symptoms. Patient stated while at home he was seated in a chair, reach for an object from his chair, experienced brief disorientation and began experiencing right-sided upper and lower extremity numbness and tingling. Patient presented to the ED with difficulty with speech as well as difficulty with memory. On presentation he denied any headache, vision change or focal weakness. Patient stated is left-sided deficits, speech difficulty with word finding as well as his concentration had improved during 2 nights ago. Objective - Vital Signs Vital signs: Vital Signs Temp 97.0 F L 07/02/17 20:00 Pulse 74 07/02/17 20:00 Resp 16 07/02/17 20:00 BP 145/74 07/02/17 20:00 Pulse Ox 95 07/02/17 20:00 Intake & Output 07/02/17 07/02/17 07/03/17 06:59 18:59 06:59 Intake Total 8327.896 5670.606 Output Total 750 1500 Balance 813.542 -439.394 Weight 68.6 kg Intake: IV 1280 Heparin Sodium,Porcine/ 320 D5w Pmx 25,000 unit In Dextrose/Water 1 500ml. bag @ 12 UNITS/KG/HR 16. 63 mls/hr IV .Q24H [facility] Rx #:[id number] Sodium Chloride 0.9% 1, 960 000 ml @ 100 mls/hr IV . Q10H [facility] Rx#:[id number] Intake, IV Titration 283.542 144.606 Amount Heparin Sodium,Porcine/ 283.542 144.606 D5w Pmx 25,000 unit In Dextrose/Water 1 500ml. bag @ 12 UNITS/KG/HR 16. 63 mls/hr IV .Q24H [facility] Rx #:[id number] Oral 916 Output: Urine 750 1500 Other: Voiding Method Urinal Urinal # Voids 2 # Bowel Movements 1 - Exam Constitutional: AOx3, cooperative HEENT: NC/AT, no facial asymmetry is seen. Throat: Supple, no masses Respiratory: No increased work of breathing Cardiac: Regular rate and Rhythm GI: non tender, non distended Musculoskeletal: Property Insurance Agent strengths are equal bilaterally 5/5, Lower extremity strengths are equal bilaterally at 5/5. Neurological: CN II-XII in tact, patient was AOx3, speech and language are normal, no unilateralizing weakness, no seizure activity note on physical exam. Sensation was normal. slight left perioral droop. Integementary: no rash, no erythema Psychiatric: mood and affect appropriate - Labs CBC & Chem 7: 07/02/17 05:58 06/30/17 14:52 Labs: Abnormal Lab Results - Last 24 Hours (Table) 07/02/17 07/02/17 07/02/17 Range/Units 05:58 05:58 13:21 RBC 3.63 L (4.30-5.90) m/uL Hgb 12.4 L (13.0-17.5) gm/dL Hct 37.8 L (39.0-53.0) % MCV 104.3 H (80.0-100.0) fL PT 12.3 H (9.0-12.0) sec INR 1.2 H (<1.2) APTT 76.4 H 53.5 H (22.0-30.0) sec Assessment and Plan (1) Cerebrovascular accident Narrative/Plan: embolic stroke Status: Acute Plan: Patient does appear to have experienced a CVA, most likely embolic and secondary to atrial fibrillation and subtherapeutic INR. Patient's only current remaining symptoms are the left-sided perioral droop which is now minimal. Patient admits that he is approximately 95-99%% returned to baseline. Speech is returning to normal, cognition has returned to normal and unilateral deficits have resolved. EEG was taken but not read,serum homocystine level is pending. Lipid panel has been completed. Only noted abnormality is low HDL at 39. Treatment: Patient will remain on 81 mg aspirin continue neuro checks as previously scheduled Status: Neurology will continue to follow with anticipated discharge on July 03, 2017. If patient's only remaining requirements prior to discharge is his EEG results, patient can be cleared for discharge from a neurological standpoint and we will discuss EEG results at his follow-up visit. Patient to follow up with neurology within 10-14 days for an office visit once discharged. Feel free to contact our office with any questions. I discussed the patient's pertinent medical information with Dr. Qureshi. He agrees with the plan of care as implemented.
[2017-07-03 05:58] LABS: Basophils % (A) 0 %; CH 34.7; CHCM 33.6; Eosinophils # (A) 0.1 k/uL (0-0.7); Eosinophils % (A) 1 %; HDW 2.38; HGB 12.5 gm/dL (13.0-17.5); Luc # (Auto) 0.16; Luc % (Auto) 4; Lymphocytes # (A) 1.4 k/uL (1.0-4.8); Lymphocytes % (A) 32 %; MCH 34.1 pg (25.0-35.0); MCHC 32.9 g/dL (31.0-37.0); MCV 103.7 fL (80.0-100.0); Macrocytosis Slight; Mean Platelet Volume 8.1; Monocytes # (A) 0.4 k/uL (0-1.0); Monocytes % (A) 9 %; Neutrophils # (A) 2.4 k/uL (1.3-7.7); Neutrophils % (A) 54 %; RBC 3.66 m/uL (4.30-5.90); WBC 4.5 k/uL (3.8-10.6); WBC (Perox) 4.23
[2017-07-03 06:10] LABS: INR 1.3 (<1.2); Partial Thromboplastin Time 46.8 sec (22.0-30.0); Prothrombin Time 13.2 sec (9.0-12.0)
[2017-07-03] MEDS: PANTOPRAZOLE 40 MG TABLET PO SCH (06:22)
[2017-07-03 06:32] LABS: Anion Gap 7 mmol/L; Blood Urea Nitrogen 10 mg/dL (9-20); Carbon Dioxide 29 mmol/L (22-30); Chloride 104 mmol/L (98-107); Glucose 101 mg/dL (74-99); Non-African American GFR(MDRD) 60 (>60 ml/min/1.73 sqM); Potassium 4.1 mmol/L (3.5-5.1); Sodium 140 mmol/L (137-145)
[2017-07-03] MEDS: GABAPENTIN 100 MG CAP PO SCH ×3 (08:33→20:34)
[2017-07-03] MEDS: ASPIRIN 81 MG CHEW PO SCH (08:34)
[2017-07-03] MEDS: MAGNESIUM OXIDE 400 MG TAB PO SCH (08:34)
[2017-07-03] MEDS: METOPROLOL TARTRATE 25 MG TAB PO SCH ×2 (08:34→20:34)
[2017-07-03] MEDS: TAMSULOSIN 0.4 MG CAP.ER.24H PO SCH (08:34)
--- NOTE | 2017-07-03 10:40 | P.PN ---
Subjective Patient is doing well. He is walking around in the hallways. His speech is improved. However his INR still subtherapeutic. He was admitted with a stroke in the setting of a subtherapeutic INR he was taking Coumadin 5 mg alternating with 2.5 mg by mouth daily. He was treated with Coumadin 5 mg daily but his INR is still subtherapeutic and today I'm increasing to 7.5 mg by mouth daily. I would recommend keeping him as an inpatient until his INR increased to 2.0 prior to discharge Afebrile 97F pulse rate in the 70s, respirations normal, blood pressure 117/60 738/67 and 149/87 mmHg pulse ox normal Breath sounds are normal no rhonchi no crackles Heart sounds are irregular no murmurs or gallops Abdomen soft nontender Extremities are warm Impression Atrial fibrillation with a controlled ventricular response Cerebrovascular accident with a subtherapeutic INR on Coumadin, speech is improved Cannot afford to NOAC Increase Coumadin today to 6 mg by mouth daily because his INR has not budged. Watch him in the hospital for his INR increases and make sure that INR is not supratherapeutic. Daily INRs Objective - Vital Signs Vital signs: Vital Signs Temp 97.0 F L 07/03/17 08:00 Pulse 88 07/03/17 08:00 Resp 16 07/03/17 08:00 BP 149/87 07/03/17 08:00 Pulse Ox 97 07/03/17 08:10 Intake & Output 07/02/17 07/03/17 07/03/17 18:59 06:59 18:59 Intake Total 1060.606 185.493 480 Output Total 1500 Balance -439.394 185.493 480 Weight 67.9 kg Intake: Intake, IV Titration 144.606 185.493 Amount Heparin Sodium,Porcine/ 144.606 185.493 D5w Pmx 25,000 unit In Dextrose/Water 1 500ml. bag @ 12 UNITS/KG/HR 16. 63 mls/hr IV .Q24H LO Rx #:[id number] Oral 916 480 Output: Urine 1500 Other: Voiding Method Urinal Urinal # Voids 2 1 2 # Bowel Movements 1 - Labs CBC & Chem 7: 07/03/17 05:39 07/03/17 05:39 Labs: Abnormal Lab Results - Last 24 Hours (Table) 07/02/17 07/03/17 07/03/17 Range/Units 13:21 05:39 05:39 RBC 3.66 L (4.30-5.90) m/uL Hgb 12.5 L (13.0-17.5) gm/dL Hct 38.0 L (39.0-53.0) % MCV 103.7 H (80.0-100.0) fL Plt Count 147 L (150-450) k/uL PT 13.2 H (9.0-12.0) sec INR 1.3 H (<1.2) APTT 53.5 H 46.8 H (22.0-30.0) sec Glucose (74-99) mg/dL 07/03/17 Range/Units 05:39 RBC (4.30-5.90) m/uL Hgb (13.0-17.5) gm/dL Hct (39.0-53.0) % MCV (80.0-100.0) fL Plt Count (150-450) k/uL PT (9.0-12.0) sec INR (<1.2) APTT (22.0-30.0) sec Glucose 101 H (74-99) mg/dL
--- NOTE | 2017-07-03 16:24 | P.PN ---
Subjective Principal diagnosis: embolic CVA July 03, 2017: patient is ambulating in the room on contact today. Patient is alert and oriented 3. Expressed he hadn't no return of any symptoms or increases in previous symptomology. Patient stated his speech has improved even more from yesterday. Perioral droop was minimal but still evident. Speech, PT and OT following. Patient's INR was subtherapeutic and is being managed by cardiology and primary care team. Overall, patient is improving and progressing well. July 02, 2017: The patient was ambulating in the room upon contact today. Patient was alert and oriented 3. Expressed he had no return of any symptoms or increase in previous symptomology. Patient also states that his speech is improving still today. Minimal perioral droop was observed. Speech, PT and OT are following. Recommend continuation outpatient if necessary for speech. Otherwise, patient is overall improving and progressing well. July 01, 2017: Patient is an 87-year-old male being followed by neurology for CVA. Patient was at home was found by his son with speech to be extremely slow and patient was extremely lethargic but no other focal symptoms. Patient stated while at home he was seated in a chair, reach for an object from his chair, experienced brief disorientation and began experiencing right-sided upper and lower extremity numbness and tingling. Patient presented to the ED with difficulty with speech as well as difficulty with memory. On presentation he denied any headache, vision change or focal weakness. Patient stated is left-sided deficits, speech difficulty with word finding as well as his concentration had improved during 2 nights ago. Objective - Vital Signs Vital signs: Vital Signs Temp 97.0 F L 07/03/17 12:00 Pulse 88 07/03/17 12:00 Resp 16 07/03/17 12:00 BP 170/79 07/03/17 12:00 Pulse Ox 98 07/03/17 12:00 Intake & Output 07/02/17 07/03/17 07/03/17 18:59 06:59 18:59 Intake Total 1060.606 997.566 2365 Output Total 1500 Balance -439.394 902.603 4441 Weight 67.9 kg Intake: Intake, IV Titration 144.606 185.493 Amount Heparin Sodium,Porcine/ 144.606 185.493 D5w Pmx 25,000 unit In Dextrose/Water 1 500ml. bag @ 12 UNITS/KG/HR 16. 63 mls/hr IV .Q24H LO Rx #:[id number] Oral 916 1200 Output: Urine 1500 Other: Voiding Method Urinal Urinal Urinal # Voids 2 1 3 # Bowel Movements 1 - Exam Constitutional: AOx3, cooperative HEENT: NC/AT, no facial asymmetry is seen. Throat: Supple, no masses Respiratory: No increased work of breathing Cardiac: Regular rate and Rhythm GI: non tender, non distended Musculoskeletal: Tile Burner strengths are equal bilaterally 5/5, Lower extremity strengths are equal bilaterally at 5/5. Neurological: CN II-XII in tact, patient was AOx3, speech and language are normal, no unilateralizing weakness, no seizure activity note on physical exam. Sensation was normal. slight left perioral droop. Integementary: no rash, no erythema Psychiatric: mood and affect appropriate - Labs CBC & Chem 7: 07/03/17 05:39 07/03/17 05:39 Labs: Abnormal Lab Results - Last 24 Hours (Table) 07/03/17 07/03/17 07/03/17 Range/Units 05:39 05:39 05:39 RBC 3.66 L (4.30-5.90) m/uL Hgb 12.5 L (13.0-17.5) gm/dL Hct 38.0 L (39.0-53.0) % MCV 103.7 H (80.0-100.0) fL Plt Count 147 L (150-450) k/uL PT 13.2 H (9.0-12.0) sec INR 1.3 H (<1.2) APTT 46.8 H (22.0-30.0) sec Glucose 101 H (74-99) mg/dL 07/03/17 Range/Units 13:05 RBC (4.30-5.90) m/uL Hgb (13.0-17.5) gm/dL Hct (39.0-53.0) % MCV (80.0-100.0) fL Plt Count (150-450) k/uL PT (9.0-12.0) sec INR (<1.2) APTT 55.2 H (22.0-30.0) sec Glucose (74-99) mg/dL Assessment and Plan (1) Cerebrovascular accident Narrative/Plan: embolic stroke Status: Acute Plan: Patient does appear to have experienced a CVA, most likely embolic and secondary to atrial fibrillation and subtherapeutic INR. Patient's only current remaining symptoms are the left-sided perioral droop which is now minimal. Patient admits that he is approximately 95-99%% returned to baseline. Speech is returning to normal, cognition has returned to normal and unilateral deficits have resolved. EEG was taken but not read, serum homocystine level is pending. Lipid panel has been completed. Only noted abnormality is low HDL at 39. Treatment: Patient will remain on 81 mg aspirin continue neuro checks as previously scheduled Status: Neurology will clear the patient for discharge. Patient to follow-up in our office in 10-14 days. Feel free to contact our office with any questions. I discussed the patient's pertinent medical information with Dr. Qureshi. He agrees with the plan of care as implemented.
[2017-07-03] MEDS ORDERED: WARFARIN 7.5 MG TAB PO SCH (18:00)
[2017-07-03] MEDS ORDERED: WARFARIN 3 MG TAB PO SCH (18:00)
[2017-07-03] MEDS: DIGOXIN 125 MCG TAB PO SCH (20:34)
[2017-07-03] MEDS: MELATONIN 3 MG TABLET PO SCH (20:34)
[2017-07-04 05:54] LABS: Basophils % (A) 1 %; CH 34.8; CHCM 33.7; Eosinophils # (A) 0.1 k/uL (0-0.7); Eosinophils % (A) 1 %; HCT 41.6 % (39.0-53.0); HDW 2.42; HGB 13.5 gm/dL (13.0-17.5); Luc # (Auto) 0.14; Luc % (Auto) 3; Lymphocytes # (A) 1.1 k/uL (1.0-4.8); Lymphocytes % (A) 26 %; MCH 33.7 pg (25.0-35.0); MCHC 32.4 g/dL (31.0-37.0); MCV 103.9 fL (80.0-100.0); Macrocytosis Slight; Monocytes # (A) 0.3 k/uL (0-1.0); Monocytes % (A) 7 %; Neutrophils # (A) 2.8 k/uL (1.3-7.7); Neutrophils % (A) 62 %; RBC 4.01 m/uL (4.30-5.90); RDW 14.2 % (11.5-15.5); WBC 4.4 k/uL (3.8-10.6); WBC (Perox) 4.38
[2017-07-04 06:06] LABS: INR 1.5 (<1.2); Partial Thromboplastin Time 58.2 sec (22.0-30.0); Prothrombin Time 14.6 sec (9.0-12.0)
[2017-07-04] MEDS: PANTOPRAZOLE 40 MG TABLET PO SCH (06:32)
[2017-07-04] MEDS: ASPIRIN 81 MG CHEW PO SCH (09:21)
[2017-07-04] MEDS: GABAPENTIN 100 MG CAP PO SCH (09:21)
[2017-07-04] MEDS: METOPROLOL TARTRATE 25 MG TAB PO SCH (09:21)
[2017-07-04] MEDS: MAGNESIUM OXIDE 400 MG TAB PO SCH (09:21)
[2017-07-04] MEDS: TAMSULOSIN 0.4 MG CAP.ER.24H PO SCH (09:21)
[2017-07-04 10:38] VITALS: RESP 16; TEMP 97
--- NOTE | 2017-07-04 11:11 | PN ---
PROGRESS NOTE DATE OF SERVICE: 07/03/2017 PRESENT COMPLAINT: Difficulty with speech. INTERVAL HISTORY: This patient was seen by me yesterday on 07/03/2017. The patient was admitted with stroke affecting the speech, nearly back to normal. He is getting anticoagulated. INR is still subtherapeutic. Comfortable. Remains in atrial fibrillation, rate is controlled. REVIEW OF SYSTEMS: Done for constitutional, cardiovascular, GI, pulmonary, neuro; relevant findings as above. CURRENT MEDICATIONS: Reviewed, include IV heparin and Coumadin. PHYSICAL EXAMINATION: Temperature 97, pulse 72, respirations 16, blood pressure 130/79, pulse 98% on room air. Previous blood pressure 149/87. GENERAL APPEARANCE: Lying in bed, comfortable. EYES: Conjunctivae normal. Pupils equal. NECK: JVD not raised. LUNGS: Respiratory effort normal. Lungs slightly decreased breath sounds. CARDIOVASCULAR: Heart sounds are irregular. No edema. ABDOMEN: Soft, nontender. Liver and spleen not palpable. PSYCHIATRY: Alert, normal. Mood and affect normal. NEUROLOGIC: Speech is back to normal, very slightly slow if any. INVESTIGATIONS: INR is 1.3. ASSESSMENT: 1. Acute stroke affecting speech in right middle cerebral artery territory, possibly embolic in nature from underlying atrial fibrillation. 2. Peripheral neuropathy. 3. Essential hypertension. 4. Hyperlipidemia. 5. Coronary artery disease. 6. Permanent pacemaker. 7. Persistent atrial fibrillation. 8. Granulomatous lung disease, chronic. 9. Ascending aortic aneurysm 4.4 cm. 10.Moderate pulmonary regurgitation, nonrheumatic. 11.IV heparin monitoring. 12.Coumadin monitoring. PLAN: 1. Cardiology increased the dose of Coumadin to 6 mg a day. 2. Continue to follow INR. 3. Care was discussed with the patient. MMODL / IJN: [id number] /
--- NOTE | 2017-07-04 11:17 | P.PN ---
Subjective Principal diagnosis: Acute CVA This is a pleasant 87-year-old gentleman who follows regularly with Dr. Cayla Burger in the office. He has a known history of coronary artery disease with prior stent placement, history also of hypertension, hyperlipidemia, prior pacemaker, mild to moderate aortic stenosis, chronic atrial fibrillation for which the patient is on Coumadin. Patient presented to the hospital with symptoms of expressive aphasia. He states that he was sitting in a chair, he was leaning over to supervisor opening and picking something off the floor. Patient states that he continued to stay slumped over, his was speaking to him, he states he could hear her fine he tried to answer but was unable to speak. They called their son who then brought him to the hospital. He states that when he was asked questions on arrival here, he could not answer further questions or think of the answers at that time. At the time of my examination this morning he is speaking appropriately and answering questions appropriately. He denies having any weakness on either side of his body. No prior history of stroke. He does take Coumadin for anticoagulation for his atrial fibrillation, however his INR was subtherapeutic on admission. Hemoglobin 13.6, platelet count 160, potassium 4.5, BUN 12, creatinine 1.2. Opponents negative 3. EKG on admission showed a paced rhythm with underlying atrial fibrillation. CAT scan of the brain did not reveal any acute intracranial hemorrhage or midline shift. Moderate to severe age-related cerebral atrophy without any significant change. CAT scan of the chest revealed chronic nodular pulmonary infiltrate similar to prior. Mild aneurysmal cavitation of the ascending aorta at 4.4 cm. Carotid Doppler study no significant stenosis. 07/04/2017 Patient seen and examined this morning, quite eager to be discharged home today. Feeling well overall. We will discontinue the IV heparin and initiate Eliquis 2-1/2 mg one tablet by mouth twice a day. Follow-up appointment with Dr. Cayla Burger in the office post discharge. Objective - Vital Signs Vital signs: Vital Signs Temp 97 F L 07/04/17 09:15 Pulse 80 07/04/17 09:15 Resp 16 07/04/17 09:15 BP 150/73 07/04/17 09:15 Pulse Ox 94 L 07/04/17 09:15 Intake & Output 09/04/17 09/05/17 09/05/17 18:59 06:59 18:59 Intake Total 1920 100 Output Total 300 725 400 Balance 7637 -810 -400 Weight 67.9 kg 68.1 kg Intake: Oral 1920 100 Output: Urine 300 725 400 Other: Voiding Method Urinal Urinal # Voids 3 - Exam PHYSICAL EXAMINATION: HEENT: Head is atraumatic, normocephalic. Pupils equal, round. Neck is supple. There is no elevated jugular venous pressure. HEART EXAMINATION: Heart S1 and S2 irregularly irregular a systolic ejection murmur is heard. CHEST EXAMINATION: Lungs are clear to auscultation and precussion. No chest wall tenderness is noted on palpation or with deep breathing. ABDOMEN: Soft, nontender. Bowel sounds are heard. No organomegaly noted. EXTREMITIES: 2+ peripheral pulses with no evidence of peripheral edema and no calf tenderness noted]. NEUROLOGIC [patient is awake, alert and oriented -3.] . - Labs CBC & Chem 7: 07/04/17 05:34 07/03/17 05:39 Labs: Abnormal Lab Results - Last 24 Hours (Table) 07/03/17 07/04/17 07/04/17 Range/Units 13:05 05:34 05:34 RBC 4.01 L (4.30-5.90) m/uL MCV 103.9 H (80.0-100.0) fL PT 14.6 H (9.0-12.0) sec INR 1.5 H (<1.2) APTT 55.2 H 58.2 H (22.0-30.0) sec Assessment and Plan Plan: Assessment and Plan #1 symptoms of expressive aphasia, suggestive of possible CVA. Initial CAT scan did not reveal any acute abnormality. #2 history of coronary artery disease with prior PCI #3 hypertension #4 hyperlipidemia #5 chronic persistent atrial fibrillation, on Coumadin for anticoagulation. Subtherapeutic #6 moderate aortic stenosis #7 prior pacemaker implantation Plan We'll discontinue the IV heparin and initiate Eliquis 2.5mg one tablet by mouth twice a day. He may be able to be discharged home from cardiology's perspective to follow-up with Dr. Cayla Burger in the office post discharge DNP note has been reviewed, I agree with a documented findings and plan of care. Patient was seen and examined.
[2017-07-04] MEDS ORDERED: APIXABAN 2.5 MG TABLET PO SCH (11:30)
[2017-07-04 12:06] VITALS: BP 144/73; PULSE 73
--- NOTE | 2017-07-04 19:38 | P.DS ---
Providers Date of admission: 06/30/17 16:38 Expected date of discharge: 07/04/17 Attending physician: Babak Ruiz Consults: 06/30/17 16:36 Consult Physician Urgent Consulting Provider: Jeremy Qureshi Consult Reason/Comments: cva Do you want consulting provider notified?: Yes 06/30/17 22:10 Consult Physician Routine Consulting Provider: Daniel Charlton Consult Reason/Comments: Coumadin dosing; subtherapeutic INR. Do you want consulting provider notified?: Yes Primary care physician: Fahad Nicole [facility] Course: FINAL DIAGNOSES: -Acute stroke affecting speech in the right middle cerebral artery territory, possibly embolic in nature from underlying atrial fibrillation. -Peripheral neuropathy. -Essential hypertension. -Hyperlipidemia. -Coronary artery disease. -Permanent pacemaker. -Persistent atrial flutter fibrillation. -Granulomatous with ptosis lung disease, chronic -Ascending aortic aneurysm 4.4 cm -Moderate pulmonary regurgitation, nonrheumatic. -IV heparin monitoring. -Coumadin monitoring. HOSPTIAL COURSE: 87-year-old male with history significant for hyperlipidemia atrial fibrillation on Coumadin, coronary artery disease with prior stent placement, who presented to the emergency department with expressive aphasia at home. Admitted for acute stroke affecting the speech area, neurology cardiology, speech therapy consulted. Carotid Doppler, chest CT, echocardiogram, completed. Patient's symptoms have returned to baseline, ambulating with a steady gait, no facial droop, aphasia, speech difficulty or residual weakness noted. Coumadin on admission was subtherapeutic today INR 1.5, cardiology switch the patient Eliquis and to follow-up in office with DR Burger. Patient ambulatory in the room and hallway, tolerating his diet eating 75-100% of his meals, last BM 07/04/2017. Condition stable for patient to be discharged home. PHYSICAL EXAM: CARDIOVASCULAR: Irregular rhythm rate controlled, no edema RESPIRATORY: Effort normal lung sounds diminished bilaterally to auscultation. MUSKULOSKELETAL: Gait steady, power and strength 5/ 5 NEUROLOGIC: Alert and oriented 3, gross motor movement intact, speech clear no aphasia Patient was seen and examined by nurse practitioner Macie Orozco in all elements of the case discussed with attending Dr. Ruiz DISPOSITION: Home self-care Plan - Discharge Summary New Discharge Prescriptions: New Apixaban [Eliquis] 2.5 mg PO BID #60 tab Melatonin 3 mg PO HS tab Continue Multivit-Min/FA/Lycopen/Lutein [Centrum Silver Men Tablet] 1 tab PO DAILY Magnesium 200 mg PO DAILY Aspirin 81 mg PO DAILY Omeprazole 20 mg PO BID Digoxin [Lanoxin] 125 mcg PO HS Gabapentin [Neurontin] 100 mg PO TID #90 cap Metoprolol Tartrate [Lopressor] 25 mg PO BID #60 tab Tamsulosin HCl [Flomax] 0.4 mg PO DAILY Vits A,C,E/Lutein/Minerals [Ocuvite with Lutein Tablet] 1 tab PO DAILY Discontinued Warfarin [Coumadin] 2.5 mg PO TUTHSA Warfarin [Coumadin] 5 mg PO SUMOWEFR Discharge Medication List Aspirin 81 mg PO DAILY 04/10/17 [History] Magnesium 200 mg PO DAILY 04/10/17 [History] Multivit-Min/FA/Lycopen/Lutein [Centrum Silver Men Tablet] 1 tab PO DAILY [History] Omeprazole 20 mg PO BID 04/10/17 [History] Digoxin [Lanoxin] 125 mcg PO HS 04/11/17 [History] Gabapentin [Neurontin] 100 mg PO TID #90 cap 04/12/17 [Rx] Metoprolol Tartrate [Lopressor] 25 mg PO BID #60 tab 04/12/17 [Rx] Tamsulosin HCl [Flomax] 0.4 mg PO DAILY 06/30/17 [History] Vits A,C,E/Lutein/Minerals [Ocuvite with Lutein Tablet] 1 tab PO DAILY 06/30/17 [History] Apixaban [Eliquis] 2.5 mg PO BID #60 tab 07/04/17 [Rx] Melatonin 3 mg PO HS tab 07/04/17 [Rx] Follow up Appointment(s)/Referral(s): Jasmin Burger MD [STAFF PHYSICIAN] - 1 Week (Office to call patient) Jeremy Qureshi MD [STAFF PHYSICIAN] - 10 Days (Office to call patient) Fahad Nicole MD [Primary Care Provider] - 07/07/17 7:15 pm Patient Instructions/Handouts: Apixaban (By mouth), Atrial Fibrillation (DC), Stroke (DC) Activity/Diet/Wound Care/Special Instructions: Eliquis - belt picker from [facility] at time of discharge; free 30 days - after first 30 days samples to be supplied by [facility]. Discharge Disposition: HOME SELF-CARE
--- NOTE | 2017-07-05 06:11 | EEG ---
ELECTROENCEPHALOGRAM REPORT DATE OF SERVICE: 07/03/2017. REASON FOR TESTING: Stroke. DESCRIPTION OF THE PROCEDURE: This EEG was performed using a 21 channel digital electroencephalograph, following international 10-20 system. DESCRIPTION OF THE RECORDING: From the beginning of the tracing, with patient's eyes closed, the background rhythm was mostly consisting of 8-9 Hz alpha frequency in the posterior occipital leads. No obvious asymmetry is seen. Photic stimulation was performed with no driving response seen. No pathological waves were elicited. Hyperventilation was not performed. Occasional movement artifacts are seen. The patient remains awake throughout the tracing. No epileptiform discharges were seen. His EKG lead showed a regular rate and rhythm. INTERPRETATION: This awake EEG can be considered within normal limits. There was no asymmetry seen. No epileptiform discharges were noticed. The absence of epileptiform discharges does not rule out the diagnosis of epilepsy, therefore clinical correlation is recommended. MMJAMESL / IJGisella: [id number] /
== END 2017-07-04 14:25 | disposition home or self-care (01) | DRG 65 ==
LOC: EC 14:32 → 6SEL 16:38
PROVIDERS: ADMIT Hospitalist; ATTEND Hospitalist
DX: I63.40 Cerebral infarction due to embolism of unspecified cerebral artery (principal); I48.1 Persistent atrial fibrillation; I11.0 Hypertensive heart disease with heart failure; G62.9 Polyneuropathy, unspecified; I48.2 Chronic atrial fibrillation; I50.9 Heart failure, unspecified; I71.2 Thoracic aortic aneurysm, without rupture; J84.10 Pulmonary fibrosis, unspecified; R47.01 Aphasia; I48.92 Unspecified atrial flutter; E78.5 Hyperlipidemia, unspecified; F17.200 Nicotine dependence, unspecified, uncomplicated; H35.30 Unspecified macular degeneration; H40.9 Unspecified glaucoma; H54.41 Blindness, right eye, normal vision left eye; I25.10 Atherosclerotic heart disease of native coronary artery without angina pectoris; I25.2 Old myocardial infarction; I35.0 Nonrheumatic aortic (valve) stenosis; I37.1 Nonrheumatic pulmonary valve insufficiency; I73.9 Peripheral vascular disease, unspecified; Z79.01 Long term (current) use of anticoagulants; Z79.82 Long term (current) use of aspirin; Z79.899 Other long term (current) drug therapy; Z80.8 Family history of malignant neoplasm of other organs or systems; Z82.49 Family history of ischemic heart disease and other diseases of the circulatory system; Z95.0 Presence of cardiac pacemaker; Z95.5 Presence of coronary angioplasty implant and graft
CPT/HCPCS: 36415; 70450; 71020; 71260; 80048; 80053; 80061; 82550; 82553; 83090; 84484; 85025; 85610; 85730; 93005; 93306; 93880; 94760; 95816; 96360; 99285

== ENCOUNTER → 2020-03-19 | Outpatient (CLI) | payer MEDICARE, BC ==
[2020-03-19 11:38] LABS: HGB 13.2 gm/dL (13.0-17.5); Hypochromasia Slight; MCH 34.1 pg (25.0-35.0); MCHC 30.6 g/dL (31.0-37.0); MCV 111.4 fL (80.0-100.0); Macrocytosis Marked; Mean Platelet Volume 8.4; Platelet Count 141 k/uL (150-450); RBC 3.86 m/uL (4.30-5.90); WBC 3.7 k/uL (3.8-10.6)
[2020-03-19 21:14] LABS: African American GFR (CKD) 56.5 (60.0-200.0); Anion Gap 7.4 mmol/L (4.00-12.00); BUN/Creat Ratio 11.54 Ratio (12.00-20.00); Calcium 8.8 mg/dL (8.7-10.3); Carbon Dioxide 29.6 mmol/L (21.6-31.8); Non-African American GFR(CKD) 48.7 (60.0-200.0); Potassium 4.2 mmol/L (3.5-5.5)
[2020-03-19 21:16] LABS: Hemoglobin A1C 5.6 % (4.0-6.0)
== END | disposition home or self-care (01) ==
LOC: LABWHC1 10:46
PROVIDERS: ATTEND Internal Medicine Interventional Cardiology
DX: I10 Essential (primary) hypertension (principal); E11.9 Type 2 diabetes mellitus without complications; I48.91 Unspecified atrial fibrillation
CPT/HCPCS: 36415; 80048; 83036; 85027

== ENCOUNTER 2020-04-28 09:57 | Inpatient (IN) | payer MEDICARE, BC ==
--- NOTE | 2020-04-28 10:44 | ED ---
General Adult HPI - General Chief complaint: Neuro Symptoms/Deficit Stated complaint: hallucinations Time Seen by Provider: 04/28/20 10:20 Source: patient Mode of arrival: ambulatory Limitations: no limitations - History of Present Illness Initial comments: 89yo male with extensive PMH including atrial fibrillation on eliquis, HTN, CAD, HLD, heart failure, neuropathy, prostate disease, macular degeneration presenting today for cc of visual hallucinations, patient brought in by daughter. Patient states that he has felt no new symptoms in the past few months. He states his daughter brought him to the ER. Denies significant SOB, CP, vomiting, nausea, abdominal pain. Admits to chronic constipation with last bowel movement 2 days ago. His only complaint is fatigue from "staying up too late" Patient daughter states he has been up late secondary to visual hallucination, patient states that he has heard people partying/peeing in his living room. Daughter states every day since last monday he was been complaining of seeing people he doesnt know in the house. Patient daughter states it was initially only at night but now has been throughout the day, they are intermittent. Daughter who is bedside suspicious at baseline currently. She denies noting any focal neurological deficit such as facial droop, speech changes weakness of the specific extremity. Patient denies these complaints. Upon arrival patient is pleasant, he is answering questions appropriately. Recent in family. - Related Data Home Medications Medication Instructions Recorded Confirmed Aspirin 81 mg PO DAILY 04/10/17 04/28/20 Multivit-Min/FA/Lycopen/Lutein 1 tab PO DAILY 04/10/17 04/28/20 [Centrum Silver Men Tablet] Omeprazole 20 mg PO BID 04/10/17 04/28/20 Digoxin [Lanoxin] 125 mcg PO DAILY 04/11/17 04/28/20 Tamsulosin HCl [Flomax] 0.4 mg PO BID 06/30/17 04/28/20 Vits A,C,E/Lutein/Minerals 1 tab PO DAILY 06/30/17 04/28/20 [Ocuvite with Lutein Tablet] Finasteride [Proscar] 5 mg PO HS 04/28/20 04/28/20 Fludrocortisone Acetate 0.2 mg PO DAILY 04/28/20 04/28/20 Lisinopril [Zestril] 5 - 10 mg PO DAILY PRN 04/28/20 04/28/20 Metoprolol Succinate [Toprol XL] 50 mg PO BID 04/28/20 04/28/20 Previous Rx's Medication Instructions Recorded Apixaban [Eliquis] 2.5 mg PO BID #60 tab 07/04/17 Allergies Allergy/AdvReac Type Severity Reaction Status Date / Time No Known Allergies Allergy Verified 04/28/20 13:34 Review of Systems ROS Statement: Those systems with pertinent positive or pertinent negative responses have been documented in the HPI. ROS Other: All systems not noted in ROS Statement are negative. Past Medical History Past Medical History: Atrial Fibrillation, Coronary Artery Disease (CAD), Chest Pain / Angina, Heart Failure, Hyperlipidemia, Hypertension, Myocardial Infarction ([place]), Osteoarthritis (OA), Pneumonia, Prostate Disorder, Syncope Additional Past Medical History / Comment(s): peripheral neuropathy hands/arms,legs, feet. 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 pvd, djd, diverticulitis, chronic back pain Last Myocardial Infarction Date:: 2011 History of Any Multi-Drug Resistant Organisms: None Reported Past Surgical History: AICD, Heart Catheterization, Heart Catheterization With Stent, Pacemaker Additional Past Surgical History / Comment(s): cataracts sx, laser sx for glaucoma,vasectomy,colonoscopy/polypectpmy-benign, pain clinic procedure, hemorrhoidectomy, rt carpal tunnel release. Past Anesthesia/Blood Transfusion Reactions: No Reported Reaction Date of Last Stent Placement:: 2011 Type of Cardiac Device: Permanent Pacemaker Device Placement Date:: Past Psychological History: No Psychological Hx Reported Smoking Status: Former smoker Past Alcohol Use History: Daily Past Drug Use History: None Reported - Past Family History Mother Family Medical History: Myocardial Infarction ([place]) Father Family Medical History: Cancer Additional Family Medical History / Comment(s): Bone CA, heart issues General Exam - General Exam Comments Initial Comments: General: The patient is awake and alert, in no distress, and does not appear acutely ill. Eye: Pupils are equal, round and reactive to light, extra-ocular movements are intact. No nystagmus. There is normal conjunctiva bilaterally. No signs of icterus. Ears, nose, mouth and throat: There are moist mucous membranes and no oral lesions. Neck: The neck is supple, there is no tenderness or JVD. Cardiovascular: There is a regular rate and rhythm. Murmur, rub or gallop is appreciated. Respiratory: Lungs are clear to auscultation, respirations are non-labored, breath sounds are equal. No wheezes, stridor, rales, or rhonchi. Gastrointestinal: Soft, non-distended, non-tender abdomen without masses or organomegaly noted. There is no rebound or guarding present. Musculoskeletal: Normal ROM, no tenderness. Strength 5/5. Sensation intact. Radial pulses equal bilaterally 2+. Neurological: A&O x 3. CN II-XII intact, Full sensations, strength of the UE and LE, no drift of the UE or LE. Gait WNL. There are no obvious motor or sensory deficits. Coordination appears grossly intact. Speech is normal. Skin: Skin is warm and dry and no rashes or lesions are noted. Psychiatric: Cooperative, appropriate mood & affect, normal judgment. Limitations: no limitations Course Vital Signs 04/28/20 04/28/20 04/28/20 10:09 11:05 12:03 Temperature 98 F Pulse Rate 78 60 73 Respiratory 18 18 18 Rate Blood Pressure 122/86 170/98 O2 Sat by Pulse 98 97 100 Oximetry 04/28/20 04/28/20 04/28/20 12:05 13:44 14:51 Temperature Pulse Rate 80 70 Respiratory 18 16 Rate Blood Pressure 184/116 160/93 169/111 O2 Sat by Pulse 95 Oximetry - Reevaluation(s) Reevaluation #1: Spoke with EPS nurse, family disclosed to her that he is a drinker and his last drink is 1 week ago, symptoms began 6 days ago. Patient has had hallucinations with withdrawl in the past- i did initially ask about alcohol and it was denied. Added thiamine/Magnesium laboratory studies, [facility] protocols. 04/28/20 13:14 Medical Decision Making - Medical Decision Making 89-year-old male presents today for chief complaint of visual hallucination 6 days. Patient is brought in by family. Patient has no other complaints. Patient has no focal neurological deficits. Patient does not have significant tremor. Family admits to pill rolling. CT brain (-). Initially denied ETOH abuse. EPS evaluation patient admitted to heavy use, last use 7 days ago. Concern for withdrawal. WA protcols in place. Patient not acute altered currently. Patient thiamine and magnesium levels pending. Patient will be admitted for further monitoring. Dr. Mohamud evaluated patient and is agreeable to admission. - Lab Data Result diagrams: 04/28/20 10:40 04/28/20 10:39 Lab Results 04/28/20 04/28/20 04/28/20 Range/Units 10:25 10:39 10:39 WBC (3.8-10.6) k/uL RBC (4.30-5.90) m/uL Hgb (13.0-17.5) gm/dL Hct (39.0-53.0) % MCV (80.0-100.0) fL MCH (25.0-35.0) pg MCHC (31.0-37.0) g/dL RDW (11.5-15.5) % Plt Count (150-450) k/uL Neutrophils % % Lymphocytes % % Monocytes % % Eosinophils % % Basophils % % Neutrophils # (1.3-7.7) k/uL Lymphocytes # (1.0-4.8) k/uL Monocytes # (0-1.0) k/uL Eosinophils # (0-0.7) k/uL Basophils # (0-0.2) k/uL Manual Slide Review Macrocytosis PT 10.8 (9.0-12.0) sec INR 1.0 (<1.2) APTT 28.6 (22.0-30.0) sec Sodium 135 L (137-145) mmol/L Potassium 3.6 (3.5-5.1) mmol/L Chloride 97 L (98-107) mmol/L Carbon Dioxide 28 (22-30) mmol/L Anion Gap 10 mmol/L BUN 14 (9-20) mg/dL Creatinine 1.04 (0.66-1.25) mg/dL Est GFR (CKD-EPI)AfAm 74 (>60 ml/min/1.73 sqM) Est GFR (CKD-EPI)NonAf 64 (>60 ml/min/1.73 sqM) Glucose 82 (74-99) mg/dL POC Glucose (mg/dL) (75-99) mg/dL POC Glu Redevelopment Specialist ID Calcium 8.9 (8.4-10.2) mg/dL Magnesium (1.6-2.3) mg/dL Total Bilirubin 1.3 (0.2-1.3) mg/dL AST 32 (17-59) U/L ALT 14 (4-49) U/L Alkaline Phosphatase 69 (38-126) U/L Ammonia <9 (<30) umol/L Troponin I (0.000-0.034) ng/mL Total Protein 7.1 (6.3-8.2) g/dL Albumin 4.2 (3.5-5.0) g/dL Urine Color Urine Appearance (Clear) Urine pH (5.0-8.0) Ur Specific [place] (1.001-1.035) Urine Protein (Negative) Urine Glucose (UA) (Negative) Urine Ketones (Negative) Urine Blood (Negative) Urine Nitrite (Negative) Urine Bilirubin (Negative) Urine Urobilinogen (<2.0) mg/dL Ur Leukocyte Esterase (Negative) Salicylates <1.0 mg/dL Urine Opiates Screen (NotDetected) Ur Oxycodone Screen (NotDetected) Urine Methadone Screen (NotDetected) Ur Propoxyphene Screen (NotDetected) Acetaminophen <10.0 ug/mL Ur Barbiturates Screen (NotDetected) U Tricyclic Antidepress (NotDetected) Ur Phencyclidine Scrn (NotDetected) Ur Amphetamines Screen (NotDetected) U Methamphetamines Scrn (NotDetected) U Benzodiazepines Scrn (NotDetected) Urine Cocaine Screen (NotDetected) U Marijuana (THC) Screen (NotDetected) 04/28/20 04/28/20 04/28/20 Range/Units 10:39 10:39 10:40 WBC 4.9 (3.8-10.6) k/uL RBC 4.06 L (4.30-5.90) m/uL Hgb 14.5 (13.0-17.5) gm/dL Hct 44.4 (39.0-53.0) % MCV 109.4 H (80.0-100.0) fL MCH 35.6 H (25.0-35.0) pg MCHC 32.6 (31.0-37.0) g/dL RDW 13.9 (11.5-15.5) % Plt Count 158 (150-450) k/uL Neutrophils % 61 % Lymphocytes % 27 % Monocytes % 9 % Eosinophils % 1 % Basophils % 0 % Neutrophils # 3.0 (1.3-7.7) k/uL Lymphocytes # 1.3 (1.0-4.8) k/uL Monocytes # 0.5 (0-1.0) k/uL Eosinophils # 0.0 (0-0.7) k/uL Basophils # 0.0 (0-0.2) k/uL Manual Slide Review Performed Macrocytosis Marked A PT (9.0-12.0) sec INR (<1.2) APTT (22.0-30.0) sec Sodium (137-145) mmol/L Potassium (3.5-5.1) mmol/L Chloride (98-107) mmol/L Carbon Dioxide (22-30) mmol/L Anion Gap mmol/L BUN (9-20) mg/dL Creatinine (0.66-1.25) mg/dL Est GFR (CKD-EPI)AfAm (>60 ml/min/1.73 sqM) Est GFR (CKD-EPI)NonAf (>60 ml/min/1.73 sqM) Glucose (74-99) mg/dL POC Glucose (mg/dL) (75-99) mg/dL POC Glu Redevelopment Specialist ID Calcium (8.4-10.2) mg/dL Magnesium 1.9 (1.6-2.3) mg/dL Total Bilirubin (0.2-1.3) mg/dL AST (17-59) U/L ALT (4-49) U/L Alkaline Phosphatase (38-126) U/L Ammonia (<30) umol/L Troponin I <0.012 (0.000-0.034) ng/mL Total Protein (6.3-8.2) g/dL Albumin (3.5-5.0) g/dL Urine Color Urine Appearance (Clear) Urine pH (5.0-8.0) Ur Specific [place] (1.001-1.035) Urine Protein (Negative) Urine Glucose (UA) (Negative) Urine Ketones (Negative) Urine Blood (Negative) Urine Nitrite (Negative) Urine Bilirubin (Negative) Urine Urobilinogen (<2.0) mg/dL Ur Leukocyte Esterase (Negative) Salicylates mg/dL Urine Opiates Screen (NotDetected) Ur Oxycodone Screen (NotDetected) Urine Methadone Screen (NotDetected) Ur Propoxyphene Screen (NotDetected) Acetaminophen ug/mL Ur Barbiturates Screen (NotDetected) U Tricyclic Antidepress (NotDetected) Ur Phencyclidine Scrn (NotDetected) Ur Amphetamines Screen (NotDetected) U Methamphetamines Scrn (NotDetected) U Benzodiazepines Scrn (NotDetected) Urine Cocaine Screen (NotDetected) U Marijuana (THC) Screen (NotDetected) 04/28/20 04/28/20 Range/Units 10:44 10:48 WBC (3.8-10.6) k/uL RBC (4.30-5.90) m/uL Hgb (13.0-17.5) gm/dL Hct (39.0-53.0) % MCV (80.0-100.0) fL MCH (25.0-35.0) pg MCHC (31.0-37.0) g/dL RDW (11.5-15.5) % Plt Count (150-450) k/uL Neutrophils % % Lymphocytes % % Monocytes % % Eosinophils % % Basophils % % Neutrophils # (1.3-7.7) k/uL Lymphocytes # (1.0-4.8) k/uL Monocytes # (0-1.0) k/uL Eosinophils # (0-0.7) k/uL Basophils # (0-0.2) k/uL Manual Slide Review Macrocytosis PT (9.0-12.0) sec INR (<1.2) APTT (22.0-30.0) sec Sodium (137-145) mmol/L Potassium (3.5-5.1) mmol/L Chloride (98-107) mmol/L Carbon Dioxide (22-30) mmol/L Anion Gap mmol/L BUN (9-20) mg/dL Creatinine (0.66-1.25) mg/dL Est GFR (CKD-EPI)AfAm (>60 ml/min/1.73 sqM) Est GFR (CKD-EPI)NonAf (>60 ml/min/1.73 sqM) Glucose (74-99) mg/dL POC Glucose (mg/dL) 105 H (75-99) mg/dL POC Glu Redevelopment Specialist ID Mary Alice Alvarado Calcium (8.4-10.2) mg/dL Magnesium (1.6-2.3) mg/dL Total Bilirubin (0.2-1.3) mg/dL AST (17-59) U/L ALT (4-49) U/L Alkaline Phosphatase (38-126) U/L Ammonia (<30) umol/L Troponin I (0.000-0.034) ng/mL Total Protein (6.3-8.2) g/dL Albumin (3.5-5.0) g/dL Urine Color Light Yellow Urine Appearance Clear (Clear) Urine pH 7.0 (5.0-8.0) Ur Specific [place] 1.006 (1.001-1.035) Urine Protein Trace H (Negative) Urine Glucose (UA) Negative (Negative) Urine Ketones Negative (Negative) Urine Blood Negative (Negative) Urine Nitrite Negative (Negative) Urine Bilirubin Negative (Negative) Urine Urobilinogen <2.0 (<2.0) mg/dL Ur Leukocyte Esterase Negative (Negative) Salicylates mg/dL Urine Opiates Screen Not Detected (NotDetected) Ur Oxycodone Screen Not Detected (NotDetected) Urine Methadone Screen Not Detected (NotDetected) Ur Propoxyphene Screen Not Detected (NotDetected) Acetaminophen ug/mL Ur Barbiturates Screen Not Detected (NotDetected) U Tricyclic Antidepress Not Detected (NotDetected) Ur Phencyclidine Scrn Not Detected (NotDetected) Ur Amphetamines Screen Not Detected (NotDetected) U Methamphetamines Scrn Not Detected (NotDetected) U Benzodiazepines Scrn Not Detected (NotDetected) Urine Cocaine Screen Not Detected (NotDetected) U Marijuana (THC) Screen Not Detected (NotDetected) Disposition Clinical Impression: Hallucinations, History of ETOH abuse Disposition: ADMITTED IP TO THIS [facility] Condition: Stable Is patient prescribed a controlled substance at d/c from ED?: No Referrals: Fahad Nicole MD [Primary Care Provider] - 1-2 days Time of Disposition: 15:18 Decision to Admit Reason: Admit from EC Decision Date: 04/28/20 Decision Time: 15:18
[2020-04-28 10:50] LABS: Glucose,Whole Blood 105 mg/dL (75-99)
[2020-04-28 11:02] LABS: ALT 14 U/L (4-49); AST 32 U/L (17-59); Acetaminophen <10.0 ug/mL; African American GFR (CKD) 74 (>60 ml/min/1.73 sqM); Albumin 4.2 g/dL (3.5-5.0); Alkaline Phosphatase 69 U/L (38-126); Anion Gap 10 mmol/L; Blood Urea Nitrogen 14 mg/dL (9-20); Calcium 8.9 mg/dL (8.4-10.2); Carbon Dioxide 28 mmol/L (22-30); Chloride 97 mmol/L (98-107); Glucose 82 mg/dL (74-99); Non-African American GFR(CKD) 64 (>60 ml/min/1.73 sqM); Potassium 3.6 mmol/L (3.5-5.1); Salicylate <1.0 mg/dL; Sodium 135 mmol/L (137-145); Total Bilirubin 1.3 mg/dL (0.2-1.3); Total Protein 7.1 g/dL (6.3-8.2)
[2020-04-28 11:12] LABS: Amphetamine Screen,Urine Not Detected (NotDetected); Barbiturate Screen,Urine Not Detected (NotDetected); Benzodiazepines Screen,Urine Not Detected (NotDetected); Cocaine Screen,Urine Not Detected (NotDetected); Methadone Screen, Urine Not Detected (NotDetected); Opiate Screen,Urine Not Detected (NotDetected); Oxycodone Screen, Urine Not Detected (NotDetected); Phencyclidine Screen,Urine Not Detected (NotDetected); Tricyclic Antidepressant,Urine Not Detected (NotDetected); Urn Cannabinoid Scrn Not Detected (NotDetected)
[2020-04-28 11:14] LABS: Appearance,Urine Clear (Clear); Bilirubin,Urine Negative (Negative); Blood,Urine Negative (Negative); Color,Urine Light Yellow; Glucose,Urine (UA) Negative (Negative); Ketones,Urine Negative (Negative); Leukocyte Esterase,Urine Negative (Negative); Nitrite,Urine Negative (Negative); Protein,Urine Trace (Negative); Specific Gravity,Urine 1.006 (1.001-1.035); Urobilinogen,Urine <2.0 mg/dL (<2.0)
[2020-04-28 11:17] LABS: Basophils % (A) 0 %; Eosinophils % (A) 1 %; HCT 44.4 % (39.0-53.0); HGB 14.5 gm/dL (13.0-17.5); Lymphocytes # (A) 1.3 k/uL (1.0-4.8); Lymphocytes % (A) 27 %; MCH 35.6 pg (25.0-35.0); MCHC 32.6 g/dL (31.0-37.0); MCV 109.4 fL (80.0-100.0); Macrocytosis Marked; Mean Platelet Volume 8.4; Monocytes # (A) 0.5 k/uL (0-1.0); Monocytes % (A) 9 %; Neutrophils % (A) 61 %; Platelet Count 158 k/uL (150-450); RBC 4.06 m/uL (4.30-5.90); RDW 13.9 % (11.5-15.5); WBC 4.9 k/uL (3.8-10.6)
--- NOTE | 2020-04-28 11:36 | CT ---
EXAMINATION TYPE: CT brain wo con DATE OF EXAM: 04/28/2020 COMPARISON: 06/30/2017 HISTORY: 89-year-old male altered mental status, confusion, Hallucinations TECHNIQUE: Examination was done in axial plane without intravenous contrast. Coronal and sagittal r econstructions performed. CT DLP: 1064.4 mGycm Automated exposure control for dose reduction was used. FINDINGS: There is no evidence of acute intracranial hemorrhage, acute ischemic changes, mass, mass-effect, or extra-axial fluid collection. There is no effacement of cerebral sulci or basal subarachnoid cister ns. There is no hydrocephalus. There is no midline shift. Ortiz-white matter distinction is preserv ed. There is moderate generalized supratentorial volume loss. I described calcifications in the bilateral carotid siphons. Additional scattered mild atelectatic calcifications within the left M1 branch. Mil d periventricular white matter hypodensities. Paranasal sinuses and mastoid air cells well pneumatized. Visualized orbits and globes are clear. IMPRESSION: Moderate generalized atrophy and mild changes of chronic small vessel ischemic disease. No acute intr acranial abnormality seen.
--- NOTE | 2020-04-28 11:38 | XR ---
EXAMINATION TYPE: XR chest 2V DATE OF EXAM: 04/28/2020 COMPARISON: 06/30/2017 HISTORY: 89-year-old male confusion, altered mental status TECHNIQUE: PA and lateral views FINDINGS: Heart borderline in size. Aorta within normal limits. Left anterior chest wall pacemaker generator wi th right atrial, right ventricular, and coronary sinus leads. Diffuse interstitial opacity. More patc hy peripheral upper lung densities on both sides. Hyperinflation. No pleural effusion. IMPRESSION: COPD. Suspect interstitial changes to be largely chronic. However, there are somewhat more focal opac ities in the periphery of the upper lungs. Early infiltrates including early atypical pneumonia is di fficult to exclude. Correlate with patient's symptoms.
[2020-04-28 11:48] LABS: Partial Thromboplastin Time 28.6 sec (22.0-30.0); Prothrombin Time 10.8 sec (9.0-12.0)
[2020-04-28] MEDS ORDERED: hydrALAZINE HCL 25 MG TAB PO STA (12:19)
[2020-04-28] MEDS ORDERED: LORazepam 2 MG/ML INJ IV PRN ×3 (13:16)
[2020-04-28] MEDS ORDERED: THIAMINE 100 MG/ML 2 ML VIAL IM STA (13:16)
[2020-04-28] MEDS ORDERED: NALOXONE 0.4 MG/ML 1 ML VIAL IV PRN (14:02)
[2020-04-28] MEDS ORDERED: OLANZapine 10 MG VIAL IM STA (14:54)
[2020-04-28] MEDS ORDERED: lisinopriL 5 MG TAB PO PRN (15:01)
[2020-04-28] MEDS: 1: MVI, ADULT NO.4 WITH VIT K 10 ML, THIAMINE 100 MG, FOLIC ACID 1 MG in SODIUM CHLORIDE IV SCH ×4 (16:41)
[2020-04-28] MEDS: METOPROLOL SUCCINATE (ER) 50 MG TAB.ER.24H PO SCH (20:09)
[2020-04-28] MEDS: APIXABAN 2.5 MG TABLET PO SCH (20:10)
[2020-04-28] MEDS: FINASTERIDE 5 MG TAB PO SCH (20:10)
[2020-04-29] MEDS: 1: MVI, ADULT NO.4 WITH VIT K 10 ML, THIAMINE 100 MG, FOLIC ACID 1 MG in SODIUM CHLORIDE IV SCH ×8 (05:22→15:36)
[2020-04-29 09:59] VITALS: BMI 18.1
[2020-04-29] MEDS: ASPIRIN 81 MG PO SCH (11:20)
[2020-04-29] MEDS: METOPROLOL SUCCINATE (ER) 50 MG TAB.ER.24H PO SCH ×2 (11:20→20:22)
[2020-04-29] MEDS: PANTOPRAZOLE 40 MG TABLET PO SCH (11:20)
[2020-04-29] MEDS: APIXABAN 2.5 MG TABLET PO SCH ×2 (11:21→20:22)
[2020-04-29] MEDS: FLUDROCORTISONE 0.1 MG TAB PO SCH (13:10)
[2020-04-29] MEDS: DIGOXIN 125 MCG TAB PO SCH (13:11)
--- NOTE | 2020-04-29 13:50 | P.CN ---
Psychiatric Consult - . Consult date: 04/29/20 Consult:: 04/29/20 13:41 IDENTIFYING DATA: This patient is a 89-year-old male who currently lives with his in a house and collects Social Security and has 4 kids and 7 grandkids. HISTORY OF PRESENT ILLNESS: The patient presented to the hospital with onset of visual hallucinations and was brought in by his daughter. Patient apparently had been fatigued and had been having poor sleep at home courted ER report. Patient also complained of hearing people partying in his living room. Psychiatry is consulted for hallucinations. Patient had no observed neuro deficits in the ER and CT scan was apparently negative for any acute changes however did show moderate generalized atrophy and UDS was negative. Patient was seen sitting in the room with a sitter and was agreeable to speak to caption writer. Patient was polite and pleasant during the encounter however did was noticed to have a tremor mainly in his arms bilaterally resting and intentional. Patient was apparently confused at the beginning of the encounter and mainly stated "I don't know" to several questions as to why he is not hospital. He states that "evidently Im nuts". She spoke about being in a hospital in [place] however did not elaborate much on that. She did acknowledge that he was having visual hallucinations however states that "I haven't seen anything lately". He denied any auditory hallucinations at this time. He states that his mood is "okay" and states that he is sleeping poorly. Patient had good memory recall fair judgment and obstruction and was alert and oriented 3. At this time patient denies any suicidal or homical ideations, intent or plan. Patient denies any current auditory, visual hallucinations. Patients admits to using alcohol daily and states that he used to drink 4 beers a day however claims that he cut back to 2 beers a day and denies any cigarette use or any other drug use. PAST PSYCHIATRIC HISTORY: Patient denies being on any psychiatric medications. Patient denies any previous psychiatric hospitalizations. Patient denies any psychiatric outpatient follow-up. Patient denies any history of suicide attempts in the past. PAST MEDICAL HISTORY: Hypertension, coronary artery disease, hyperlipidemia, heart failure, neuropathy, prostate disease, macular degeneration. ALLERGIES: as per EMR. CHEMICAL DEPENDENCY HISTORY: as per HPI. 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 He currently lives in a house with his and collects Social Security. MENTAL STATUS EXAM: General Appearance: Patient appears to be tall, stated age is alert, pleasant, attempts to cooperate. Patient appears to have fair hygiene and grooming wearing hospital gown with fair eye contact. Behavior: Patient is calmly lying in bed without any agitated behavior. Appears to be confused at times. Speech: Patient's speech is fluent and nonpressured. Mood/Affect: Patient reports their mood is "fine", affect is congruent Suicidality/Homicidality: Patient denies having any suicidal or homicidal ideation intent or plan. Perceptions: Patient denies any visual hallucinations and denies any auditory hallucinations. Did endorse a history of visual hallucinations however does not describe what they are. Though content/process: There is no evidence of any delusional thought content and thought process is linear and goal-directed. Memory and concentration: AOX3, grossly intact for the purposes of this session. Fair abstraction, can list the previous 2 presidents and has 3 out of 3 memory recall after 5 minutes. Judgment and insight: Limited IMPRESSIONS: Psychosis unspecified, visual hallucinations/auditory hallucinations may possibly be related to an underlying organic neurological disease such as PDD/Lewy body dementia vs. macular degeneration? PLAN: -At this time patient DOES NOT meet criteria for inpatient psychiatric admission. -Delirium precautions recommended with patient including - avoiding use of narcotics and TRIAL COURT JUDGE sedatives, limit anticholinergic medications when possible, frequent re-orientation, minimize use of restraints, open window shades during the day and close them at night -Would recommend the following medication changes/additions: Please avoid giving patient any benzodiazepines at this time as this may trigger delirium/confusion. Added Seroquel 25 mg daily at bedtime for hallucinations/sleep. -Sitter can be discontinued at primary teams discretion. -Will continue to follow along -Please contact with any questions. 04/29/20 13:43
[2020-04-29] MEDS: FINASTERIDE 5 MG TAB PO SCH (20:22)
[2020-04-29] MEDS: QUEtiapine 25 MG TAB PO SCH (20:24)
--- NOTE | 2020-04-29 20:30 | P.HPIM ---
History of Present Illness H&P Date: 04/29/20 Chief Complaint: Hallucinations History of presenting complaint: This is a pleasant 89-year-old patient who follows with Dr. randall. Chronic stable medical conditions include atrial fibrillation, peripheral neuropathy, essential hypertension, hyperlipidemia, or any artery disease, permanent pacemaker, granulomatous lung disease, ascending aortic aneurysm 4.4 cm, moderat e pulmonary regurgitation. Patient felt of embolic stroke back in 2017. For which she was put on eliquis. Patient was brought into the ER. Per the daughter's statement the ER patient is be staying up late because of visual hallucinations. He reported pain to bring alliance party and being in his living room. His been seeing people in the house. At present there. This used to happen at night but not for the day. Intermittent. Appetite has been okay. When I tried to interview the patient is able to give some answers. Otherwise he will drift off. Has a sitter. Denies any headache. No change in vision. 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 Social history: Patient retired from the [employer], also working on the body shop. Did smoke in the past. Does drink some alcohol. Physical examination: VITAL SIGNS: 98, 71, 20, 154/82, 95% room air GENERAL: BMI 18.2, sitting up in bed, comfortable. EYES: Pupils equal. Conjunctiva normal. HEENT: External appearance of nose and ears normal, oral cavity grossly normal. NECK: JVD not raised; masses not palpable. HEART: First and second heart sounds are normal; no edema. LUNGS: Respiratory rate normal; decreased breath sounds. ABDOMEN: Soft, nontender, liver spleen not palpable, no masses palpable. PSYCH: Patient didn't tell the month the year and he knows that he is in the hospital. But is not sure why he is here. MUSCULOSKELETAL: Evidence of OAl. NEUROLOGICAL: Cranial nerves grossly intact; no facial asymmetry, power and sensation grossly intact. LYMPHATICS: No lymph nodes palpable in the axilla and neck INVESTIGATIONS, reviewed in the clinical context: White count 4.9 hemoglobin 40.5 potassium 3.6 creatinine 1.04 UA-negative for infection Urine drug screen negative EKG tracing personally reviewed by me-ventricular paced rhythm Computed tomography scan of the brain-moderate generalized atrophy -Chest x-ray film personally reviewed by me-normal heart size, some chronic changes in the lungs, pacemaker Assessment: -This is a patient will been having some hallucinations ordered. Tired. As per the daughter in the ER mostly at night but now in the daytime 2. 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 And hallucinations for the same. -Persistent atrial fibrillation -Peripheral neuropathy -Essential hypertension -Hyperlipidemia -Coronary artery disease -Granulomatous lung disease, chronic Ascending aortic aneurysm 4.4 cm -Moderate secondary pulmonary regurgitation nonrheumatic Plan: We'll check patient's B12 TSH. Patient has a sitter. Home medications are to continue. Treatment options are somewhat limited. Patient has not been sleeping well at night and because of habitus the patient will try Seroquel. Sleep hygiene to be maintained. Prognosis guarded. Past Medical History Past Medical History: Atrial Fibrillation, Coronary Artery Disease (CAD), Chest Pain / Angina, Heart Failure, Hyperlipidemia, Hypertension, Myocardial Infarction ([place]), Osteoarthritis (OA), Pneumonia, Prostate Disorder, Syncope Additional Past Medical History / Comment(s): peripheral neuropathy hands/arms,legs, feet. 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 pvd, djd, diverticulitis, chronic back pain Last Myocardial Infarction Date:: 2011 History of Any Multi-Drug Resistant Organisms: None Reported Past Surgical History: AICD, Heart Catheterization, Heart Catheterization With Stent, Pacemaker Additional Past Surgical History / Comment(s): cataracts sx, laser sx for glaucoma,vasectomy,colonoscopy/polypectpmy-benign, pain clinic procedure, hemorrhoidectomy, rt carpal tunnel release. Past Anesthesia/Blood Transfusion Reactions: No Reported Reaction Date of Last Stent Placement:: 2011 Type of Cardiac Device: Permanent Pacemaker Device Placement Date:: unk Past Psychological History: No Psychological Hx Reported Additional Psychological History / Comment(s): pt lives with his .lives in a 2 story home that has 17 steps total to 2nd floor and 5 porch steps. pt is ind ependant. he has no medical equipment. no home care services. pt nor no longer drive-she has dementia. daughter takes them to [employer] and [employer]. 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 pt reited from aut[employer]ody work. Smoking Status: Former smoker Past Alcohol Use History: Daily Additional Past Alcohol Use History / Comment(s): started smoking 1949 adn quit 1985-smoked 1/2 ppd Past Drug Use History: None Reported - Past Family History Mother Family Medical History: Myocardial Infarction ([place]) Father Family Medical History: Cancer Additional Family Medical History / Comment(s): Bone CA, heart issues Medications and Allergies Home Medications Medication Instructions Recorded Confirmed Type Aspirin 81 mg PO DAILY 04/10/17 04/28/20 History Multivit-Min/FA/Lycopen/Lutein 1 tab PO DAILY 04/10/17 04/28/20 History [Centrum Silver Men Tablet] Omeprazole 20 mg PO BID 04/10/17 04/28/20 History Digoxin [Lanoxin] 125 mcg PO DAILY 04/11/17 04/28/20 History Tamsulosin HCl [Flomax] 0.4 mg PO BID 06/30/17 04/28/20 History Vits A,C,E/Lutein/Minerals 1 tab PO DAILY 06/30/17 04/28/20 History [Ocuvite with Lutein Tablet] Apixaban [Eliquis] 2.5 mg PO BID #60 tab 07/04/17 04/28/20 Rx Finasteride [Proscar] 5 mg PO HS 04/28/20 04/28/20 History Fludrocortisone Acetate 0.2 mg PO DAILY 04/28/20 04/28/20 History Lisinopril [Zestril] 5 - 10 mg PO DAILY PRN 04/28/20 04/28/20 History Metoprolol Succinate [Toprol XL] 50 mg PO BID 04/28/20 04/28/20 History Allergies Allergy/AdvReac Type Severity Reaction Status Date / Time No Known Allergies Allergy Verified 04/28/20 13:34 Physical Exam Vitals: Vital Signs Temp Pulse Pulse Resp BP BP Pulse Ox 04/29/20 06:05 98.0 F 71 20 154/82 95 04/28/20 19:15 97.7 F 78 20 142/78 96 04/28/20 18:10 78 16 172/96 99 04/28/20 16:45 64 16 174/79 99 04/28/20 14:51 70 16 169/111 04/28/20 13:44 80 18 160/93 95 04/28/20 12:05 184/116 04/28/20 12:03 73 18 100 04/28/20 11:05 60 18 170/98 97 04/28/20 10:09 98 F 78 18 122/86 98 Intake and Output 04/28/20 04/29/20 04/29/20 22:59 06:59 14:59 Other: Voiding Method Urinal # Voids 8 3 # Bowel Movements 1 Weight 62.596 kg Results CBC & Chem 7: 04/28/20 10:40 04/28/20 10:39 Labs: Abnormal Lab Results - Last 24 Hours (Table) 04/28/20 04/28/20 04/28/20 Range/Units 10:39 10:40 10:44 RBC 4.06 L (4.30-5.90) m/uL MCV 109.4 H (80.0-100.0) fL MCH 35.6 H (25.0-35.0) pg Macrocytosis Marked A Sodium 135 L (137-145) mmol/L Chloride 97 L (98-107) mmol/L POC Glucose (mg/dL) (75-99) mg/dL Urine Protein Trace H (Negative) 04/28/20 Range/Units 10:48 RBC (4.30-5.90) m/uL MCV (80.0-100.0) fL MCH (25.0-35.0) pg Macrocytosis Sodium (137-145) mmol/L Chloride (98-107) mmol/L POC Glucose (mg/dL) 105 H (75-99) mg/dL Urine Protein (Negative)
[2020-04-30] MEDS: 1: MVI, ADULT NO.4 WITH VIT K 10 ML, THIAMINE 100 MG, FOLIC ACID 1 MG in SODIUM CHLORIDE IV SCH ×8 (02:40→12:12)
[2020-04-30] MEDS: PANTOPRAZOLE 40 MG TABLET PO SCH (08:06)
[2020-04-30] MEDS: APIXABAN 2.5 MG TABLET PO SCH ×2 (08:06→20:46)
[2020-04-30] MEDS: ASPIRIN 81 MG PO SCH (08:06)
[2020-04-30] MEDS: METOPROLOL SUCCINATE (ER) 50 MG TAB.ER.24H PO SCH ×2 (08:06→20:45)
[2020-04-30] MEDS: DIGOXIN 125 MCG TAB PO SCH (08:06)
[2020-04-30] MEDS: FLUDROCORTISONE 0.1 MG TAB PO SCH (08:06)
--- NOTE | 2020-04-30 10:03 | P.PN ---
Progress Note - Text Progress Note Date: 04/30/20 Interval History: Patient was seen today for follow-up with regards to the visual/auditory hallu cinations. Patient was started on Seroquel 25 mg daily at bedtime last night for these hallucinations. No overnight complaints by nurse although patient did stay up later last night and did happen to sleep afterwards through the morning. Nurse claims that patient has not been endorsing any more auditory or visual hallucinations. Patient was noted to a finishes breakfast this morning and was resting in bed and was arousable. Patient was appropriate and appeared to be confused initially during conversation however did not endorse any complaints. He continues to have minimal insight as twice in the hospital however does state that he is feeling better. He claims that he is able to sleep throughout the night. He states that he does this well. He is not endorsing any more auditory or visual hallucinations at this time. At this time patient denies any suicidal or homical ideations, intent or plan. Patient denies any side effects from the medications and has been compliant with meds. Mental Status Exam: General Appearance: Patient appears to be tall, stated age is alert, pleasant, attempts to cooperate. Patient appears to have fair hygiene and grooming wearing hospital gown with fair eye contact. Behavior: Patient is calmly lying in bed without any agitated behavior. Speech: Patient's speech is fluent and nonpressured. Mood/Affect: Patient reports their mood is "ok", affect is congruent Suicidality/Homicidality: Patient denies having any suicidal or homicidal ideation intent or plan. Perceptions: Patient denies any visual hallucinations and denies any auditory hallucinations Though content/process: There is no evidence of any delusional thought content and thought process is linear and goal-directed. rambles at times. Memory and concentration: AOX3, grossly intact for the purposes of this session Judgment and insight: Limited Assessment Psychosis unspecified, visual hallucinations/auditory hallucinations may possibly be related to an underlying organic neurological disease such as PDD/Lewy body dementia vs. macular degeneration? Plan: -At this time patient DOES NOT meet criteria for inpatient psychiatric admission. -Delirium precautions recommended with patient including - avoiding use of narcotics and AUTOMATION TECHNICIAN sedatives, limit anticholinergic medications when possible, frequent re-orientation, minimize use of restraints, open window shades during the day and close them at night -Would recommend the following medication changes/additions: Please avoid giving patient any benzodiazepines at this time as this may trigger delirium/confusion. continue with Seroquel 25 mg daily at bedtime for hallucinations/sleep. -psychiatry will sign off at this time. If patient's symptoms progressed in the future neurology outpatient evaluation would be recommended. -Please contact with any questions.
[2020-04-30 17:35] LABS: Folate, Serum >24.0 ng/mL
[2020-04-30] MEDS: QUEtiapine 25 MG TAB PO SCH (20:46)
[2020-04-30] MEDS: FINASTERIDE 5 MG TAB PO SCH (20:46)
--- NOTE | 2020-04-30 22:13 | P.PN ---
Progress Note - Text Progress Note Date: 04/30/20 Chief Complaint: Hallucinations History of presenting complaint: This is a pleasant 89-year-old patient who follows with Dr. randall. Chronic stable medical conditions include atrial fibrillation, peripheral neuropathy, essential hypertension, hyperlipidemia, or any artery disease, permanent pacemaker, granulomatous lung disease, ascending aortic aneurysm 4.4 cm, moderate pulmonary regurgitation. Patient felt of embolic stroke back in 2017. For which she was put on eliquis. Patient was brought into the ER. Per the daughter's statement the ER patient is be staying up late because of visual hallucinations. He reported pain to bring libertarian and being in his living room. His been seeing people in the house. At present there. This used to happen at night but not for the day. Intermittent. Appetite has been okay. When I tried to interview the patient is able to give some answers. Otherwise he will drift off. Has a sitter. Denies any headache. No change in vision. Admitted with a diagnosis of Alzheimer's dementia with psychosis, leading to insomnia. Started on Seroquel. Today-patient slept well last night. No further hallucinations. Did tolerate some diet. Review of systems: Was done for constitutional, cardiovascular, GI, pulmonary. relevant finding as above Active Medications Apixaban (Eliquis) 2.5 mg PO BID [facility] Last Admin: 04/30/20 20:46 Dose: 2.5 mg Documented by: Aspirin (Aspirin) 81 mg PO DAILY [facility] Last Admin: 04/30/20 08:06 Dose: 81 mg Documented by: Digoxin (Lanoxin) 125 mcg PO DAILY [facility] Last Admin: 04/30/20 08:06 Dose: 125 mcg Documented by: Finasteride (Proscar) 5 mg PO HS [facility] Last Admin: 04/30/20 20:46 Dose: 5 mg Documented by: Fludrocortisone Acetate (Florinef) 0.2 mg PO DAILY [facility] Last Admin: 04/30/20 08:06 Dose: 0.2 mg Documented by: Parenteral Vitamin Supplement 10 ml/ Thiamine HCl 100 mg/Folic Acid 1 mg/ Sodium Chloride 1,011.2 mls @ 80 mls/hr IV .BY DURATION [facility] Last Admin: 04/30/20 12:12 Dose: 80 mls/hr Documented by: Sodium Chloride (Saline 0.9%) 1,000 mls @ 100 mls/hr IV .BY DURATION [facility] Last Admin: 04/30/20 02:40 Dose: 100 mls/hr Documented by: Lisinopril (Zestril) 5 mg PO DAILY PRN PRN Reason: Blood Pressure >190 Last Admin: 04/28/20 16:39 Dose: 5 mg Documented by: Metoprolol Succinate (Toprol Xl) 50 mg PO BID [facility] Last Admin: 04/30/20 20:45 Dose: 50 mg Documented by: Naloxone HCl (Narcan) 0.2 mg IV Q2M PRN PRN Reason: Opioid Reversal Pantoprazole Sodium (Protonix) 40 mg PO AC-BRKFST [facility] Last Admin: 04/30/20 08:06 Dose: 40 mg Documented by: Quetiapine Fumarate (Seroquel) 25 mg PO HS [facility] Last Admin: 04/30/20 20:46 Dose: 25 mg Documented by: Physical examination: VITAL SIGNS: 98.4, 66, 16, 169/92, 96% room air GENERAL: Laying in bed, more comfortable EYES: Pupils equal. Conjunctiva normal. HEENT: External appearance of nose and ears normal, oral cavity grossly normal. NECK: JVD not raised; masses not palpable. HEART: First and second heart sounds are normal; no edema. LUNGS: Respiratory rate normal; decreased breath sounds. ABDOMEN: Soft, nontender, liver spleen not palpable, no masses palpable. PSYCH: Answering simple questions. No hallucinations. MUSCULOSKELETAL: Evidence of OAl. INVESTIGATIONS, reviewed in the clinical context: TSH, B12 normal Previous testing White count 4.9 hemoglobin 40.5 potassium 3.6 creatinine 1.04 UA-negative for infection Urine drug screen negative EKG tracing personally reviewed by me-ventricular paced rhythm Computed tomography scan of the brain-moderate generalized atrophy -Chest x-ray film personally reviewed by me-normal heart size, some chronic changes in the lungs, pacemaker Assessment: - Alzheimer's dementia with elements of psychosis. Causing hallucinations. Improving -Persistent atrial fibrillation -Peripheral neuropathy -Essential hypertension -Hyperlipidemia -Coronary artery disease -Granulomatous lung disease, chronic Ascending aortic aneurysm 4.4 cm -Moderate secondary pulmonary regurgitation nonrheumatic Plan: Discussed with the nurse and social service manager. Okay for patient to inpatient rehab. Patient hallucinations are greatly improved. DC IV fluids.
[2020-05-01] MEDS: APIXABAN 2.5 MG TABLET PO SCH (09:09)
[2020-05-01] MEDS: METOPROLOL SUCCINATE (ER) 50 MG TAB.ER.24H PO SCH (09:09)
[2020-05-01] MEDS: DIGOXIN 125 MCG TAB PO SCH (09:09)
[2020-05-01] MEDS: ASPIRIN 81 MG PO SCH (09:09)
[2020-05-01] MEDS: PANTOPRAZOLE 40 MG TABLET PO SCH (09:09)
[2020-05-01] MEDS: FLUDROCORTISONE 0.1 MG TAB PO SCH (09:09)
[2020-05-01] MEDS ORDERED: LISINOPRIL-HCTZ 10-12.5 MG 1 EACH TAB PO SCH (10:30)
--- NOTE | 2020-05-01 12:30 | P.DS ---
Providers Date of admission: 04/28/20 14:03 Expected date of discharge: 05/01/20 Attending physician: Babak Ruiz Consults: 04/28/20 14:55 Consult Physician Routine Consulting Provider: Juaquin Wilcox Consult Reason/Comments: hallucination Do you want consulting provider notified?: Yes Primary care physician: Fahad Nicole [facility] Course: Chief Complaint: Hallucinations History of presenting complaint: This is a pleasant 89-year-old patient who follows with Dr. nicole. Chronic stable medical conditions include atrial fibrillation, peripheral neuropathy, essential hypertension, hyperlipidemia, or any artery disease, permanent pacemaker, granulomatous lung disease, ascending aortic aneurysm 4.4 cm, moderate pulmonary regurgitation. Patient felt of embolic stroke back in 2017. For which she was put on eliquis. Patient was brought into the ER. Per the daughter's statement the ER patient is be staying up late because of visual frederick lucinations. He reported pain to bring constitution party and being in his living room. His been seeing people in the house. At present there. This used to happen at night but not for the day. Intermittent. Appetite has been okay. When I tried to interview the patient is able to give some answers. Otherwise he will drift off. Has a sitter. Denies any headache. No change in vision. Admitted with a diagnosis of Alzheimer's dementia with psychosis, leading to insomnia. Started on Seroquel. He responded really well. No further hallucinations. Eating well. Blood pressure medications were adjusted. Sleeping well. Patient admitted to inpatient rehab Today-stable. Eating well. No new issues. Discussed with nurse. Discussed with social research assistant. Continue with Seroquel. Discussion and discharge planning more than 35 minutes Consultation: Dr. Wilcox from psychiatry Physical examination: VITAL SIGNS: 98.2, 60, 18, 167/77, 97% on room air GENERAL: Sitting up in bed, comfortable EYES: Pupils equal. Conjunctiva normal. HEENT: External appearance of nose and ears normal, oral cavity grossly normal. NECK: JVD not raised; masses not palpable. HEART: First and second heart sounds are normal; no edema. LUNGS: Respiratory rate normal; decreased breath sounds. ABDOMEN: Soft, nontender, liver spleen not palpable, no masses palpable. PSYCH: Answering simple questions. No hallucinations. MUSCULOSKELETAL: Evidence of OA. INVESTIGATIONS, reviewed in the clinical context: TSH, B12 normal Previous testing White count 4.9 hemoglobin 40.5 potassium 3.6 creatinine 1.04 UA-negative for infection Urine drug screen negative EKG tracing personally reviewed by me-ventricular paced rhythm Computed tomography scan of the brain-moderate generalized atrophy -Chest x-ray film personally reviewed by me-normal heart size, some chronic changes in the lungs, pacemaker Assessment: - Alzheimer's dementia with elements of psychosis. Causing hallucinations. Improved -Chronic insomnia for medical reasons improved -Persistent atrial fibrillation -Peripheral neuropathy -Essential hypertension -Hyperlipidemia -Coronary artery disease -Granulomatous lung disease, chronic Ascending aortic aneurysm 4.4 cm -Moderate secondary pulmonary regurgitation nonrheumatic Disposition: ECF/[facility] Patient Condition at Discharge: Stable Plan - Discharge Summary Discharge Rx Participant: No New Discharge Prescriptions: New QUEtiapine [SEROquel] 25 mg PO HS #3 tab Lisinopril-Hctz 10-12.5 mg [Zestoretic 10-12.5] 1 tab PO BID #1 tab Continue Multivit-Min/FA/Lycopen/Lutein [Centrum Silver Men Tablet] 1 tab PO DAILY Aspirin 81 mg PO DAILY Omeprazole 20 mg PO BID Digoxin [Lanoxin] 125 mcg PO DAILY Tamsulosin HCl [Flomax] 0.4 mg PO BID Vits A,C,E/Lutein/Minerals [Ocuvite with Lutein Tablet] 1 tab PO DAILY Apixaban [Eliquis] 2.5 mg PO BID #60 tab Finasteride [Proscar] 5 mg PO HS Fludrocortisone Acetate 0.2 mg PO DAILY Metoprolol Succinate [Toprol XL] 50 mg PO BID Discontinued Lisinopril [Zestril] 5 - 10 mg PO DAILY PRN PRN Reason: Blood Pressure >190 Discharge Medication List Aspirin 81 mg PO DAILY 04/10/17 [History] Multivit-Min/FA/Lycopen/Lutein [Centrum Silver Men Tablet] 1 tab PO DAILY 04/10/17 [History] Omeprazole 20 mg PO BID 04/10/17 [History] Digoxin [Lanoxin] 125 mcg PO DAILY 04/11/17 [History] Tamsulosin HCl [Flomax] 0.4 mg PO BID 06/30/17 [History] Vits A,C,E/Lutein/Minerals [Ocuvite with Lutein Tablet] 1 tab PO DAILY 06/30/17 [History] Apixaban [Eliquis] 2.5 mg PO BID #60 tab 07/04/17 [Rx] Finasteride [Proscar] 5 mg PO HS 04/28/20 [History] Fludrocortisone Acetate 0.2 mg PO DAILY 04/28/20 [History] Metoprolol Succinate [Toprol XL] 50 mg PO BID 04/28/20 [History] Lisinopril-Hctz 10-12.5 mg [Zestoretic 10-12.5] 1 tab PO BID #1 tab 05/01/20 [Rx] QUEtiapine [SEROquel] 25 mg PO HS #3 tab 05/01/20 [Rx] Follow up Appointment(s)/Referral(s): Fahad Nicole MD [Primary Care Provider] - 1-2 days (office closed, please call to set up appt.)
[2020-05-01 12:56] VITALS: BP 146/74; PULSE 65; RESP 16; TEMP 98.4
== END 2020-05-01 16:18 | DRG 57 ==
LOC: EC 09:57 → 5NMEDONC 14:03
PROVIDERS: ADMIT Hospitalist; ATTEND Hospitalist
DX: G30.9 Alzheimer's disease, unspecified (principal); F02.81 Dementia in other diseases classified elsewhere, unspecified severity, with behavioral disturbance; I48.19 Other persistent atrial fibrillation; F29 Unspecified psychosis not due to a substance or known physiological condition; I11.0 Hypertensive heart disease with heart failure; I50.9 Heart failure, unspecified; I71.2 Thoracic aortic aneurysm, without rupture; E78.5 Hyperlipidemia, unspecified; F51.04 Psychophysiologic insomnia; G62.9 Polyneuropathy, unspecified; H54.61 Unqualified visual loss, right eye, normal vision left eye; I25.10 Atherosclerotic heart disease of native coronary artery without angina pectoris; I25.2 Old myocardial infarction; I37.1 Nonrheumatic pulmonary valve insufficiency; Z11.59 Encounter for screening for other viral diseases; I73.9 Peripheral vascular disease, unspecified; K59.09 Other constipation; J98.4 Other disorders of lung; G89.29 Other chronic pain; H35.30 Unspecified macular degeneration; M19.90 Unspecified osteoarthritis, unspecified site; M54.9 Dorsalgia, unspecified; N42.9 Disorder of prostate, unspecified; K57.90 Diverticulosis of intestine, part unspecified, without perforation or abscess without bleeding; Z79.01 Long term (current) use of anticoagulants; Z79.82 Long term (current) use of aspirin; Z79.899 Other long term (current) drug therapy; Z86.73 Personal history of transient ischemic attack (TIA), and cerebral infarction without residual deficits; Z87.891 Personal history of nicotine dependence; Z95.810 Presence of automatic (implantable) cardiac defibrillator; Z95.5 Presence of coronary angioplasty implant and graft; Z98.42 Cataract extraction status, left eye; Z98.41 Cataract extraction status, right eye; Z86.010 Personal history of colon polyps; Z87.01 Personal history of pneumonia (recurrent); Z82.49 Family history of ischemic heart disease and other diseases of the circulatory system; Z80.8 Family history of malignant neoplasm of other organs or systems
CPT/HCPCS: 36415; 70450; 71046; 80053; 80306; 80329; 81003; 82075; 82140; 82607; 82746; 83520; 83735; 84425; 84443; 84484; 85025; 85610; 85730; 87635; 93005; 96365; 96366; 96372; 96375; 99285

== ENCOUNTER 2020-06-27 16:17 | Observation (INO) | payer MEDICARE, BC ==
[2020-06-27 16:30] LABS: Glucose,Whole Blood 92 mg/dL (75-99)
--- NOTE | 2020-06-27 16:35 | ED ---
Neuro HPI - General Chief Complaint: Neuro Symptoms/Deficit Stated Complaint: CVA Symptoms Time Seen by Provider: 06/27/20 16:26 Source: patient, family Mode of arrival: wheelchair Limitations: no limitations - History of Present Illness Is the patient presenting with stroke symptoms?: No Initial Comments: Patient is an 89-year-old male who presents emergency room and was transported altered mental status. Patient was just discharged from the hospital. Daughter states that she took the patient outside where he was sitting on a bench. He stated that he had a sudden headache and then all of a sudden began convulsing. Episode lasted approximate 5 minutes. Patient had slumped over to the side. He was unresponsive for a short period of time however woke up and was able to answer questions appropriately. Patient arrives and is alert and oriented 3. Reports that his headache is still present. Also had some episode of blurred vision. Reports the vision has normalized at this time. Denies any neck stiffness or fevers. Admits nausea without vomiting. No previous history of seizure-like activity. Patient used to be a drinker however stopped drinking several months ago. Denies having any recent alcohol intake. No recent head trauma. Denies unilateral numbness or weakness. No history of CVA however some report is made in the patient's history that he has had a stroke. Patient is on anticoagulation. No other alleviating, precipitating or modifying factors - Related Data Home Medications: Home Medications Medication Instructions Recorded Confirmed Multivit-Min/FA/Lycopen/Lutein 1 tab PO DAILY@69904/10/17 06/27/20 [Centrum Silver Men Tablet] Digoxin [Lanoxin] 125 mcg PO DAILY@69904/11/17 06/27/20 Tamsulosin HCl [Flomax] 0.8 mg PO DAILY@69906/30/17 06/27/20 Finasteride [Proscar] 5 mg PO HS@189904/28/20 06/27/20 Fludrocortisone Acetate 0.1 mg PO BID@07,189904/28/20 06/27/20 Metoprolol Succinate [Toprol XL] 50 mg PO BID@0700,189904/28/20 06/27/20 Acetaminophen Tab [Tylenol] 1,000 mg PO Q6HR PRN 06/25/20 06/27/20 Apixaban [Eliquis] 2.5 mg PO BID@0700,19006/25/20 06/27/20 Cyanocobalamin (Vitamin B-12) 1,000 mcg PO HS@189906/25/20 06/27/20 [Vitamin B-12] Eye Health Complex 1 cap PO DAILY@69906/25/20 06/27/20 Folic Acid 0.4 mg PO DAILY@189906/25/20 06/27/20 Lisinopril-Hctz 10-12.5 mg 1 tab PO DAILY@69906/25/20 06/27/20 [Zestoretic 10-12.5] Mag Oxide 420mg 420 mg PO DAILY@69906/25/20 06/27/20 Mirtazapine [Remeron] 15 mg PO HS@189906/25/20 06/27/20 Nitroglycerin Sl Tabs [Nitrostat] 0.4 mg SUBLINGUAL Q5M PRN 06/25/20 06/27/20 Pantoprazole Sodium [Protonix] 40 mg PO DAILY@69906/25/20 06/27/20 QUEtiapine [SEROquel] 50 mg PO HS@189906/25/20 06/27/20 Thiamine [Vitamin B-1] 100 mg PO HS@189906/25/20 06/27/20 Timolol 0.5% Ophth Soln [Timoptic 1 drop BOTH EYES DAILY@69906/25/20 06/27/20 0.5% Ophth Soln] traMADol-ACETAMINOP 37.5-325MG 1 tab PO TID PRN 06/25/20 06/27/20 [Ultracet] Previous Rx's Medication Instructions Recorded Potassium Cl Micro 20meq 20 meq PO BID #0 06/27/20 levETIRAcetam [Keppra] 500 mg PO BID #60 tab 06/29/20 Allergies/Adverse Reactions: Allergies Allergy/AdvReac Type Severity Reaction Status Date / Time No Known Allergies Allergy Verified 06/25/20 08:11 Review of Systems ROS Statement: Those systems with pertinent positive or pertinent negative responses have been documented in the HPI. ROS Other: All systems not noted in ROS Statement are negative. General Exam Limitations: no limitations General appearance: alert, in no apparent distress Head exam: Present: atraumatic, normocephalic, normal inspection Eye exam: Present: normal appearance, PERRL, EOMI. Absent: scleral icterus, conjunctival injection, periorbital swelling ENT exam: Present: normal exam, mucous membranes moist Neck exam: Present: normal inspection. Absent: tenderness, meningismus, lymphadenopathy Respiratory exam: Present: normal lung sounds bilaterally. Absent: respiratory distress, wheezes, rales, rhonchi, stridor Cardiovascular Exam: Present: regular rate, normal rhythm, normal heart sounds. Absent: systolic murmur, diastolic murmur, rubs, gallop, clicks GI/Abdominal exam: Present: soft, normal bowel sounds. Absent: distended, tenderness, guarding, rebound, rigid Extremities exam: Present: normal inspection, full ROM, normal capillary refill. Absent: tenderness, pedal edema, joint swelling, calf tenderness Back exam: Present: normal inspection Neurological exam: Present: alert, oriented X3, CN II-XII intact Psychiatric exam: Present: normal affect, normal mood Skin exam: Present: warm, dry, intact, normal color. Absent: rash Stroke MDM - Lab Data Result diagrams: 06/28/20 06:46 06/28/20 06:46 Lab Results 06/27/20 06/27/20 06/27/20 Range/Units 16:29 16:43 16:43 WBC 4.8 (3.8-10.6) k/uL RBC 3.70 L (4.30-5.90) m/uL Hgb 12.3 L (13.0-17.5) gm/dL Hct 38.9 L (39.0-53.0) % MCV 105.0 H (80.0-100.0) fL MCH 33.2 (25.0-35.0) pg MCHC 31.6 (31.0-37.0) g/dL RDW 13.4 (11.5-15.5) % Plt Count 168 (150-450) k/uL Neutrophils % 59 % Lymphocytes % 26 % Monocytes % 8 % Eosinophils % 1 % Basophils % 2 % Neutrophils # 2.9 (1.3-7.7) k/uL Lymphocytes # 1.3 (1.0-4.8) k/uL Monocytes # 0.4 (0-1.0) k/uL Eosinophils # 0.1 (0-0.7) k/uL Basophils # 0.1 (0-0.2) k/uL Hypochromasia Slight Macrocytosis Slight PT 11.2 (9.0-12.0) sec INR 1.1 (<1.2) APTT 24.6 (22.0-30.0) sec Sodium (137-145) mmol/L Potassium (3.5-5.1) mmol/L Chloride (98-107) mmol/L Carbon Dioxide (22-30) mmol/L Anion Gap mmol/L BUN (9-20) mg/dL Creatinine (0.66-1.25) mg/dL Est GFR (CKD-EPI)AfAm (>60 ml/min/1.73 sqM) Est GFR (CKD-EPI)NonAf (>60 ml/min/1.73 sqM) Glucose (74-99) mg/dL POC Glucose (mg/dL) 92 (75-99) mg/dL POC Glu [employer]st ID [place] Plasma Lactic Acid Gerardo (0.7-2.0) mmol/L Calcium (8.4-10.2) mg/dL Total Bilirubin (0.2-1.3) mg/dL AST (17-59) U/L ALT (4-49) U/L Alkaline Phosphatase (38-126) U/L Troponin I (0.000-0.034) ng/mL Total Protein (6.3-8.2) g/dL Albumin (3.5-5.0) g/dL 06/27/20 06/27/20 06/27/20 Range/Units 16:43 16:43 16:43 WBC (3.8-10.6) k/uL RBC (4.30-5.90) m/uL Hgb (13.0-17.5) gm/dL Hct (39.0-53.0) % MCV (80.0-100.0) fL MCH (25.0-35.0) pg MCHC (31.0-37.0) g/dL RDW (11.5-15.5) % Plt Count (150-450) k/uL Neutrophils % % Lymphocytes % % Monocytes % % Eosinophils % % Basophils % % Neutrophils # (1.3-7.7) k/uL Lymphocytes # (1.0-4.8) k/uL Monocytes # (0-1.0) k/uL Eosinophils # (0-0.7) k/uL Basophils # (0-0.2) k/uL Hypochromasia Macrocytosis PT (9.0-12.0) sec INR (<1.2) APTT (22.0-30.0) sec Sodium 138 (137-145) mmol/L Potassium 3.8 (3.5-5.1) mmol/L Chloride 106 (98-107) mmol/L Carbon Dioxide 26 (22-30) mmol/L Anion Gap 6 mmol/L BUN 14 (9-20) mg/dL Creatinine 1.06 (0.66-1.25) mg/dL Est GFR (CKD-EPI)AfAm 72 (>60 ml/min/1.73 sqM) Est GFR (CKD-EPI)NonAf 62 (>60 ml/min/1.73 sqM) Glucose 99 (74-99) mg/dL POC Glucose (mg/dL) (75-99) mg/dL POC Glu [employer] Analyst ID Plasma Lactic Acid Gerardo 1.4 (0.7-2.0) mmol/L Calcium 8.3 L (8.4-10.2) mg/dL Total Bilirubin 0.7 (0.2-1.3) mg/dL AST 30 (17-59) U/L ALT 13 (4-49) U/L Alkaline Phosphatase 72 (38-126) U/L Troponin I <0.012 (0.000-0.034) ng/mL Total Protein 6.2 L (6.3-8.2) g/dL Albumin 3.5 (3.5-5.0) g/dL - Medical Decision Making Upon the patient's placed into room 1. A thorough history and physical exam is performed. Patient has an NIH of 0. Laboratory studies had previously been completed today. They are reviewed and the patient is sent over for CT of his brain as well as CT angiography. Laboratory studies were repeated and there are no significant findings. CT angiography demonstrates tortuous internal carotid arteries. No flow limiting stenosis. Normal [place]. Chest x-ray demonstrates cardiomegaly with diffuse increased lung markings. CT of the brain demonstrates minimal. Ventricular white matter ischemic type changes. Patient is maintained on the cardiac monitoring. No further events noted in the ER. A call discuss case with Dr. Espino as he was just discharged from his service. He did recommend loading him with Keppra and giving him Keppra 500 mg twice a day. He does except admission for the patient as long as family is aware that if the patient has any acute changes tonight or tomorrow he may be transferred to facility with neurologic capabilities. They are accepting of the risks that there is no in-house neurology over the weekend. Family understands and does not want the patient transferred. I did give him 20 mg of hydralazine for his hypertension and 4 mg of Zofran for his nausea. He is placed on Keppra. Bridging orders are placed the patient is awaiting a bed on the floor EKG demonstrates electronic ventricular pacemaker. Rate of 61QRS 132. QTC of 4 61. Pacemaker captures appropriately. No sgarbossa criteria 06/27/20 17:57 Past Medical History Past Medical History: Atrial Fibrillation, Coronary Artery Disease (CAD), Chest Pain / Angina, Heart Failure, Hyperlipidemia, Hypertension, Myocardial Infarction ([place]), Osteoarthritis (OA), Pneumonia, Prostate Disorder, Syncope Additional Past Medical History / Comment(s): peripheral neuropathy hands/arms,legs, feet. 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 pvd, djd, diverticulitis, chronic back pain Last Myocardial Infarction Date:: 2011 History of Any Multi-Drug Resistant Organisms: None Reported Past Surgical History: AICD, Heart Catheterization, Heart Catheterization With Stent, Pacemaker Additional Past Surgical History / Comment(s): cataracts sx, laser sx for glaucoma,vasectomy,colonoscopy/polypectpmy-benign, pain clinic procedure, hemorrhoidectomy, rt carpal tunnel release. Past Anesthesia/Blood Transfusion Reactions: No Reported Reaction Date of Last Stent Placement:: 2011 Type of Cardiac Device: Permanent Pacemaker Device Placement Date:: Past Psychological History: No Psychological Hx Reported Smoking Status: Former smoker Past Alcohol Use History: Daily Past Drug Use History: None Reported - Past Family History Mother Family Medical History: Myocardial Infarction ([place]) Father Family Medical History: Cancer Additional Family Medical History / Comment(s): Bone CA, heart issues Course Vital Signs 06/27/20 06/27/20 16:26 18:33 Temperature 98.5 F Pulse Rate 62 63 Respiratory 17 18 Rate Blood Pressure 194/116 145/70 O2 Sat by Pulse 96 93 L Oximetry Disposition Clinical Impression: Acute encephalopathy, Seizure-like activity, Hypertension, Cephalgia Disposition: ADMITTED IP TO THIS HOSP Condition: Stable Is patient prescribed a controlled substance at d/c from ED?: No Decision to Admit Reason: Admit from EC Decision Date: 06/27/20 Decision Time: 17:54
[2020-06-27 17:00] LABS: Basophils # (A) 0.1 k/uL (0-0.2); Basophils % (A) 2 %; Eosinophils # (A) 0.1 k/uL (0-0.7); Eosinophils % (A) 1 %; HCT 38.9 % (39.0-53.0); HGB 12.3 gm/dL (13.0-17.5); Hypochromasia Slight; Lymphocytes # (A) 1.3 k/uL (1.0-4.8); Lymphocytes % (A) 26 %; MCH 33.2 pg (25.0-35.0); MCHC 31.6 g/dL (31.0-37.0); Macrocytosis Slight; Mean Platelet Volume 8.4; Monocytes # (A) 0.4 k/uL (0-1.0); Monocytes % (A) 8 %; Neutrophils # (A) 2.9 k/uL (1.3-7.7); Neutrophils % (A) 59 %; Platelet Count 168 k/uL (150-450); RDW 13.4 % (11.5-15.5); WBC 4.8 k/uL (3.8-10.6)
[2020-06-27 17:16] LABS: Albumin 3.5 g/dL (3.5-5.0); Calcium 8.3 mg/dL (8.4-10.2); INR 1.1 (<1.2); Partial Thromboplastin Time 24.6 sec (22.0-30.0); Potassium 3.8 mmol/L (3.5-5.1); Prothrombin Time 11.2 sec (9.0-12.0); Total Bilirubin 0.7 mg/dL (0.2-1.3); Total Protein 6.2 g/dL (6.3-8.2)
--- NOTE | 2020-06-27 17:18 | CT ---
EXAMINATION TYPE: CT brain wo con DATE OF EXAM: 06/27/2020 COMPARISON: 04/28/2020 INDICATION: Neuro deficits. DLP: 1181.8 mGycm, Automated exposure control for dose reduction was used. CONTRAST: None CT of the brain is performed utilizing 3 mm thick sections through the posterior fossa and 3 mm thick sections through the remaining calvarium. Study is performed within 24 hours of arrival to the hosp ital. No abnormal hyperdensity is present to suggest an acute intracranial hemorrhage. No mass lesion is evident. Minimal periventricular white matter hypodensity may be present, likely on the basis of chronic white matter ischemic changes. Ventricles and sulci are appropriate for the patient age. Paranasal sinuses and mastoid air cells within the [id number]-io-aplz are clear. IMPRESSIONS: 1. Minimal periventricular white matter ischemic type changes stable from comparison.
--- NOTE | 2020-06-27 17:19 | XR ---
EXAMINATION TYPE: XR chest 2V DATE OF EXAM: 06/27/2020 COMPARISON: 06/25/2020 INDICATION: Altered mental status TECHNIQUE: Frontal and lateral views of the chest are obtained. FINDINGS: The heart size is mildly prominent. The pulmonary vasculature is slightly prominent. Diffuse increased lung markings are present. A focal consolidation is not identified. Pacemaker overl ies left chest.. IMPRESSION: 1. Cardiomegaly with diffuse increased lung markings. Clinical correlation recommended for congestive heart failure. Findings appear stable over the interval.
--- NOTE | 2020-06-27 17:28 | CT ---
EXAMINATION TYPE: CT angio head neck DATE OF EXAM: 06/27/2020 HISTORY: Neuro deficits. COMPARISON: None CT DLP: 426.6 mGycm. Automated Exposure Control for Dose Reduction was Utilized. TECHNIQUE: CTA scan of the neck is performed with IV Contrast, patient injected with 65ml mL of Isov ue 370, axial images are obtained, coronal and sagittal reformatted images are reviewed. Three-D neto nstructed images are created on an independent workstation and reviewed. Source images are reviewed. FINDINGS: Carotid/Vascular Structures: Vascular structures are tortuous. There appears to be kinking of the int ernal carotid arteries bilaterally. Common carotid arteries bifurcate normally into internal and exte rnal carotid arteries. Some plaquing and calcification is present at the bilateral carotid bifurcatio ns. Significant flow-limiting stenosis is not evident. There is less than 50% narrowing at the right internal carotid artery proximally. Cervical of [place]: Vertebral basilar system appears normal. Posterior cerebral vasculature is unrema rkable. Internal carotid arteries bifurcate normally into A1 and M1 segments. A2 segments are normal. The anterior communicating artery is patent. Left Posterior communicating artery is patent. Right po sterior communicating artery is patent. IMPRESSION: 1. Atheromatous plaquing and tortuous internal carotid arteries. No flow-limiting stenosis bilateral carotid bifurcations. 2. Normal [place]
[2020-06-27] MEDS ORDERED: levETIRAcetam IV 1,000 MG in SALINE 1 100ML.BAG IVPB STA (17:47)
[2020-06-27] MEDS ORDERED: hydrALAZINE HCL 20 MG/ML 1 ML VIAL IVP STA (17:49)
[2020-06-27] MEDS ORDERED: ONDANSETRON 4 MG/2 ML VIAL IVP STA (17:50)
[2020-06-27] MEDS ORDERED: NALOXONE 0.4 MG/ML 1 ML VIAL IV PRN (17:54)
[2020-06-27 18:34] VITALS: RESP 18
[2020-06-27] MEDS ORDERED: ACETAMINOPHEN TAB 500 MG TAB PO PRN (19:14)
[2020-06-27] MEDS: POTASSIUM CHLORIDE ER 20 MEQ TAB.ER PO SCH (20:43)
[2020-06-27] MEDS: CEFDINIR 300 MG CAP PO SCH (20:43)
[2020-06-28 07:38] LABS: Potassium 3.8 mmol/L (3.5-5.1)
[2020-06-28] MEDS: POTASSIUM CHLORIDE ER 20 MEQ TAB.ER PO SCH ×2 (07:59→19:54)
[2020-06-28] MEDS: TAMSULOSIN 0.4 MG CAP.ER.24H PO SCH (07:59)
[2020-06-28] MEDS: PANTOPRAZOLE 40 MG TABLET PO SCH (07:59)
[2020-06-28] MEDS: APIXABAN 2.5 MG TABLET PO SCH ×2 (07:59→19:54)
[2020-06-28] MEDS: levETIRAcetam 500 MG TAB PO SCH ×2 (07:59→19:53)
[2020-06-28] MEDS: TIMOLOL 0.5% OPHTH DROPS 5 ML BTL BOTH EYES SCH (08:00)
[2020-06-28] MEDS: MULTIVITAMINS, THERA 1 EACH TAB PO SCH (08:00)
[2020-06-28] MEDS: METOPROLOL SUCCINATE (ER) 50 MG TAB.ER.24H PO SCH ×2 (08:00→19:53)
[2020-06-28] MEDS: CEFDINIR 300 MG CAP PO SCH ×2 (08:00→19:53)
[2020-06-28] MEDS: DIGOXIN 125 MCG TAB PO SCH (08:00)
[2020-06-28] MEDS: LISINOPRIL-HCTZ 10-12.5 MG 1 EACH TAB PO SCH (08:01)
[2020-06-28] MEDS: FLUDROCORTISONE 0.1 MG TAB PO SCH ×2 (08:01→19:55)
[2020-06-28] MEDS: MAGNESIUM OXIDE 400 MG TAB PO SCH (08:03)
[2020-06-28 08:12] LABS: HCT 37.7 % (39.0-53.0); HGB 11.8 gm/dL (13.0-17.5); Hypochromasia Slight; MCH 32.9 pg (25.0-35.0); MCHC 31.3 g/dL (31.0-37.0); MCV 105.3 fL (80.0-100.0); Macrocytosis Moderate; Mean Platelet Volume 8.1; Platelet Count 159 k/uL (150-450); RBC 3.58 m/uL (4.30-5.90); RDW 13.5 % (11.5-15.5); WBC 4.1 k/uL (3.8-10.6)
[2020-06-28 08:29] LABS: Lymphocytes # (M) 1.31 k/uL (1.0-4.8); Neutrophils # (M) 2.09 k/uL (1.3-7.7); Neutrophils % (M) 51 %; Nucleated Red Blood Cells 0 /100 WBC (0-0); Total Cells Counted 100
[2020-06-28] MEDS ORDERED: MIRTAZAPINE 15 MG TAB PO SCH (19:00)
[2020-06-28] MEDS ORDERED: FOLIC ACID 1 MG TAB PO SCH (19:00)
[2020-06-28] MEDS ORDERED: THIAMINE 100 MG TAB PO SCH (19:00)
[2020-06-28] MEDS ORDERED: QUEtiapine 50 MG TAB PO SCH (19:00)
[2020-06-28] MEDS ORDERED: FINASTERIDE 5 MG TAB PO SCH (19:00)
--- NOTE | 2020-06-28 21:23 | P.HPIM ---
History of Present Illness H&P Date: 06/28/20 Chief Complaint: seizure activity Chief Complaint: Acute confusion History of presenting complaint: This is a pleasant 89-year-old patient who follows with Dr. randall. Chronic stable medical conditions include atrial fibrillation, peripheral neuropathy, essential hypertension, hyperlipidemia, coronary artery disease, permanent pacemaker, granulomatous lung disease, ascending aortic aneurysm 4.4 cm, moderate pulmonary regurgitation, Alzheimer's dementia, with history of intermittent psychosis. Patient felt of embolic stroke back in 2017. For which she was put on eliquis. Patient's currently at [facility]. patient bit hospital 3 days agowith acute UTI from cystitis, treated with IV antibiotics and had presented with acute delirium. Patient is doing well and was discharged yesterday afternoon. electrolytes were corrected. Patient was just taken outside the hospital was sitting on a bench. And the patient started having convulsions. Loss of about 5 minutes. And patient is slow to the site. He was unresponsive for a short period of time. Then woke up started answer questions appropriately. Patient brought back to the ER. Patient had been doing well by time of discharge. I discussed with the ER physician Dr.Damer ROSETTE Iverson was ordered..patient been doing well overnight. No further episodes. 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 Alzheimer's dementia with intermittent psychosis Social history: Patient retired from the [employer] and also working on the [employer] Did smoke in the past. Does drink some alcohol. Currently lives at [facility] Physical examination: VITAL SIGNS: 98.2, 62, 18, 152/77, 94% room air GENERAL: BMI 90.3, sitting on bed, comfortable EYES: Pupils equal. Conjunctiva normal. HEENT: External appearance of nose and ears normal, oral cavity grossly normal. NECK: JVD not raised; masses not palpable. HEART: First and second heart sounds are normal; no edema. LUNGS: Respiratory rate normal; decreased breath sounds. ABDOMEN: Soft, nontender, liver spleen not palpable, no masses palpable. PSYCH: Patient able to answer simple questions.. MUSCULOSKELETAL: Evidence of OA. NEUROLOGICAL: Cranial nerves grossly intact; no facial asymmetry, power and sensation grossly intact. LYMPHATICS: No lymph nodes palpable in the axilla and neck INVESTIGATIONS, reviewed in the clinical context: white count 4.1 hemoglobin 11.8 platelets 159 potassium 3.8 creatinine 0.98 computed tomography scan of the brain-chronic changes CT angiogram the brain head and neck-erythematous plaquing but no flow limiting stenosis. EKG tracing personally reviewed by me-paced rhythm with underlying atrial flutter chest x-ray film borderline cardiac megaly, prominent interstitium Assessment: -new-onset of seizures. Started on Keppra in the ER. -recent acute UTI from cystitis-completing a course spine to better. - Alzheimer's dementia late onset -Chronic insomnia for medical reasons improved -Persistent atrial fibrillation/fibrillation on eliquis -Peripheral neuropathy -Essential hypertension -Hyperlipidemia -Coronary artery disease -Granulomatous lung disease, chronic -Ascending aortic aneurysm 4.4 cm -Moderate secondary pulmonary regurgitation nonrheumatic -Permanent pacemaker -Acute kidney injury possibly ATN from UTI, POA -Hyperkalemia, POA from acute kidney injury Plan: patient is put on neuro checks. Seizure precautions. Started on Keppra. EEG be ordered for the morning. We will get a neurology consultation. Seizure precautions Past Medical History Past Medical History: Atrial Fibrillation, Coronary Artery Disease (CAD), Chest Pain / Angina, Heart Failure, Hyperlipidemia, Hypertension, Myocardial Infarction ([place]), Osteoarthritis (OA), Pneumonia, Prostate Disorder, Syncope Additional Past Medical History / Comment(s): peripheral neuropathy h ands/arms,legs, feet. 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 pvd, djd, diverticulitis, chronic back pain Last Myocardial Infarction Date:: 2011 History of Any Multi-Drug Resistant Organisms: None Reported Past Surgical History: AICD, Heart Catheterization, Heart Catheterization With Stent, Pacemaker Additional Past Surgical History / Comment(s): cataracts sx, laser sx for glaucoma,vasectomy,colonoscopy/polypectpmy-benign, pain clinic procedure, hemorrhoidectomy, rt carpal tunnel release. Past Anesthesia/Blood Transfusion Reactions: No Reported Reaction Date of Last Stent Placement:: 2011 Type of Cardiac Device: Permanent Pacemaker Device Placement Date:: unk Past Psychological History: No Psychological Hx Reported Additional Psychological History / Comment(s): pt lives with his . pt resides in assisted living facility [place] on [address] [facility] [address]. pt served in the [employer] during the [employer]. pt reited from [employer]ody work. Smoking Status: Former smoker Past Alcohol Use History: Daily Additional Past Alcohol Use History / Comment(s): started smoking 1949 adn quit 1985-smoked 1/2 ppd. Patient use to drink 4 beers a day-quit drinking 3 months ago. Past Drug Use History: None Reported - Past Family History Mother Family Medical History: Myocardial Infarction ([place]) Father Family Medical History: Cancer Additional Family Medical History / Comment(s): Bone CA, heart issues Medications and Allergies Home Medications Medication Instructions Recorded Confirmed Type Multivit-Min/FA/Lycopen/Lutein 1 tab PO DAILY@00 04/10/17 06/27/20 History [Centrum Silver Men Tablet] Digoxin [Lanoxin] 125 mcg PO DAILY@69904/11/17 06/27/20 History Tamsulosin HCl [Flomax] 0.8 mg PO DAILY@00 06/30/17 06/27/20 History Finasteride [Proscar] 5 mg PO HS@189904/28/20 06/27/20 History Fludrocortisone Acetate 0.1 mg PO BID@0700,189904/28/20 06/27/20 History Metoprolol Succinate [Toprol XL] 50 mg PO BID@0700,189904/28/20 06/27/20 History Acetaminophen Tab [Tylenol] 1,000 mg PO Q6HR PRN 06/25/20 06/27/20 History Apixaban [Eliquis] 2.5 mg PO BID@0700,189906/25/20 06/27/20 History Cyanocobalamin (Vitamin B-12) 1,000 mcg PO HS@189906/25/20 06/27/20 History [Vitamin B-12] Eye Health Complex 1 cap PO DAILY@0700 06/25/20 06/27/20 History Folic Acid 0.4 mg PO DAILY@189906/25/20 06/27/20 History Lisinopril-Hctz 10-12.5 mg 1 tab PO DAILY@69906/25/20 06/27/20 History [Zestoretic 10-12.5] Mag Oxide 420mg 420 mg PO DAILY@69906/25/20 06/27/20 History Mirtazapine [Remeron] 15 mg PO HS@189906/25/20 06/27/20 History Nitroglycerin Sl Tabs [Nitrostat] 0.4 mg SUBLINGUAL Q5M PRN 06/25/20 06/27/20 History Pantoprazole Sodium [Protonix] 40 mg PO DAILY@69906/25/20 06/27/20 History QUEtiapine [SEROquel] 50 mg PO HS@189906/25/20 06/27/20 History Thiamine [Vitamin B-1] 100 mg PO HS@189906/25/20 06/27/20 History Timolol 0.5% Ophth Soln [Timoptic 1 drop BOTH EYES DAILY@69906/25/20 06/27/20 History 0.5% Ophth Soln] traMADol-ACETAMINOP 37.5-325MG 1 tab PO TID PRN 06/25/20 06/27/20 History [Ultracet] Cefuroxime [Ceftin] 250 mg PO BID #10 tab 06/27/20 06/27/20 Rx Potassium Cl Micro 20meq 20 meq PO BID #0 06/27/20 06/27/20 Rx Allergies Allergy/AdvReac Type Severity Reaction Status Date / Time No Known Allergies Allergy Verified 06/25/20 08:11 Physical Exam Vitals: Vital Signs Temp Pulse Pulse Resp BP BP Pulse Ox 06/28/20 06:11 98.2 F 62 18 152/77 94 L 06/27/20 21:00 97.7 F 68 18 151/68 96 06/27/20 18:33 63 18 145/70 93 L 06/27/20 16:26 98.5 F 62 17 194/116 96 Intake and Output 06/27/20 06/28/20 06/28/20 22:59 06:59 14:59 Intake Total 200 250 Output Total 600 300 300 Balance -400 -50 -300 Intake: Oral 200 250 Output: Urine 600 300 300 Other: Voiding Method Indwelling Catheter # Bowel Movements 1 Weight 66.224 kg Results CBC & Chem 7: 06/28/20 06:46 06/28/20 06:46 Labs: Abnormal Lab Results - Last 24 Hours (Table) 06/27/20 06/27/20 06/28/20 Range/Units 16:43 16:43 06:46 RBC 3.70 L 3.58 L (4.30-5.90) m/uL Hgb 12.3 L 11.8 L (13.0-17.5) gm/dL Hct 38.9 L 37.7 L (39.0-53.0) % MCV 105.0 H 105.3 H (80.0-100.0) fL Calcium 8.3 L (8.4-10.2) mg/dL Total Protein 6.2 L (6.3-8.2) g/dL 06/28/20 Range/Units 06:46 RBC (4.30-5.90) m/uL Hgb (13.0-17.5) gm/dL Hct (39.0-53.0) % MCV (80.0-100.0) fL Calcium 8.0 L (8.4-10.2) mg/dL Total Protein (6.3-8.2) g/dL Thrombosis Risk Factor Assmnt - Choose All That Apply Any of the Below Risk Factors Present?: Yes Each Risk Factor Represents 3 Points: Age 75 years or older Thrombosis Risk Factor Assessment Total Risk Factor Score: 3 Thrombosis Risk Factor Assessment Level: Moderate Risk
[2020-06-29] MEDS: MULTIVITAMINS, THERA 1 EACH TAB PO SCH (10:13)
[2020-06-29] MEDS: METOPROLOL SUCCINATE (ER) 50 MG TAB.ER.24H PO SCH (10:13)
[2020-06-29] MEDS: APIXABAN 2.5 MG TABLET PO SCH (10:14)
[2020-06-29] MEDS: MAGNESIUM OXIDE 400 MG TAB PO SCH (10:14)
[2020-06-29] MEDS: CEFDINIR 300 MG CAP PO SCH (10:14)
[2020-06-29] MEDS: TAMSULOSIN 0.4 MG CAP.ER.24H PO SCH (10:14)
[2020-06-29] MEDS: PANTOPRAZOLE 40 MG TABLET PO SCH (10:14)
[2020-06-29] MEDS: POTASSIUM CHLORIDE ER 20 MEQ TAB.ER PO SCH (10:14)
[2020-06-29] MEDS: levETIRAcetam 500 MG TAB PO SCH (10:14)
[2020-06-29] MEDS: DIGOXIN 125 MCG TAB PO SCH (10:18)
[2020-06-29] MEDS: FLUDROCORTISONE 0.1 MG TAB PO SCH (10:18)
[2020-06-29] MEDS: LISINOPRIL-HCTZ 10-12.5 MG 1 EACH TAB PO SCH (10:18)
[2020-06-29] MEDS: TIMOLOL 0.5% OPHTH DROPS 5 ML BTL BOTH EYES SCH (10:19)
[2020-06-29 10:25] VITALS: BMI 17.2
--- NOTE | 2020-06-29 12:07 | P.CNNES ---
History of Present Illness Consult date: 06/29/20 Requesting physician: Babak Ruiz Reason for Consult: new onset seizure History of Present Illness: This is an 89-year-old right-handed gentleman with medical history of Alzheimer's dementia with intermittent psychosis, TIA years ago (right facial numbness and weakness), peripheral neuropathy, essential hypertension, atrial fibrillation, pacemaker, hyperlipidemia, coronary artery disease, granuloma of the lung disease, ascending aortic aneurysm f 4.4 cm had a come bulge and on 06/27/2020. He was recently admitted to [facility] on 06/25/2020 for urinary tract infectionas well as delerium and the was treated with IV antibiotics. Patient's electrolytes were corrected that. The patient was discharged on 06/27/2020 and was just sitting on the bench and the patient was having convulsion lasting about 5 minutes. Per medical documentation he was unresponsive for short period of time. Then he woke up and start answering questions appropriately. Patient was started on Keppra 500 mg twice a day was given and no further seizures were witnessed. Patient workup in the hospital consisted of: Initial vitals were blood pressure of 194/116, respiratory rate of 17, heart rate of 61, pulse ox of 98.5 Fahrenheit oral, oxygen saturation of [address] of the head (06/27/20) which was reported as minimal. Ventricular white matter ischemia type changes stable from a comparison of 04/28/2020. CT of the head and neck which was reported as atheromatous plaquing and tortuous internal carotid arteries. No flow limiting stenosis bilateral carotid bifurcation. Normal cervical Lawson. Chest x-ray was reported as cardiomegaly with diffuse increasing lung marking. Local correlation recommended for congestive heart failure. Finding appears stable over that interval. EKG was reported as electronic ventricular pacemaker. Ventricular rate of 61. White blood cell initially is 4.8 to repeat it was 4.1 Patient is currently at is evident of [facility]. Per the patient, yesterday he was sitting outside and his was right next him back. He started having a headache and the center of his head. Then all of a sudden he started having the blurry vision he cannot see on both eyes. Then he passed out. He was told that he had the jerking of all extremities. He does not recall M jerk in that. Upon waking up he did not have any tongue bite or did not feel any soreness of. Denies any urinary incontinence. Spoke with the daughter (Mellissa) via phone: Patient has headaches, eyes going black, feeling like pass out but no convulsive but pass out. Lasts for seconds to few minutes. It has been going for at least 10 years and worsening. Possible several times a week. One time it happened during while in bathroom. He had MRI Brain one year ago and no acute ischemic or hemorrhage but not sure exactly. He was told he has Alzheimer's disease of 03/2020. He never seen a neurologist per daughter. Per daughter she said she is unsure if he had an EEG. Per patient he had an EEG and all work-up were negative. Patient does acknowledge of the description the daughter described. He sees [facility] and has Pacemaker Per daughter his PCP refuses to refer him to Neurologist. So they left his PCP. His daughter does not want to drive him to [facility] since it is quiet a drive. Review of Systems Review of system: The 12 point system was reviewed and apparent positive and negative per HPI. Past Medical History Past Medical History: Atrial Fibrillation, Coronary Artery Disease (CAD), Chest Pain / Angina, Heart Failure, Hyperlipidemia, Hypertension, Myocardial Infarcti on (AL), Osteoarthritis (OA), Pneumonia, Prostate Disorder, Syncope Additional Past Medical History / Comment(s): peripheral neuropathy hands/arms,legs, feet. 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 pvd, djd, diverticulitis, chronic back pain Last Myocardial Infarction Date:: 2011 History of Any Multi-Drug Resistant Organisms: None Reported Past Surgical History: AICD, Heart Catheterization, Heart Catheterization With Stent, Pacemaker Additional Past Surgical History / Comment(s): cataracts sx, laser sx for glaucoma,vasectomy,colonoscopy/polypectpmy-benign, pain clinic procedure, hemorrhoidectomy, rt carpal tunnel release. Past Anesthesia/Blood Transfusion Reactions: No Reported Reaction Date of Last Stent Placement:: 2011 Type of Cardiac Device: Permanent Pacemaker Device Placement Date:: Past Psychological History: No Psychological Hx Reported Additional Psychological History / Comment(s): pt lives with his . pt resides in assisted living facility [facility] on [address]. pt served in the [employer] during the [place] war. pt reited from [employer]. Smoking Status: Former smoker Past Alcohol Use History: Daily Additional Past Alcohol Use History / Comment(s): started smoking 1949 adn quit 1985-smoked 1/2 ppd. Patient use to drink 4 beers a day-quit drinking 3 months ago. Past Drug Use History: None Reported - Past Family History Mother Family Medical History: Myocardial Infarction (AL) Father Family Medical History: Cancer Additional Family Medical History / Comment(s): Bone CA, heart issues Medications and Allergies Home Medications Medication Instructions Recorded Confirmed Type Multivit-Min/FA/Lycopen/Lutein 1 tab PO DAILY@69904/10/17 06/27/20 History [Centrum Silver Men Tablet] Digoxin [Lanoxin] 125 mcg PO DAILY@69904/11/17 06/27/20 History Tamsulosin HCl [Flomax] 0.8 mg PO DAILY@69906/30/17 06/27/20 History Finasteride [Proscar] 5 mg PO HS@189904/28/20 06/27/20 History Fludrocortisone Acetate 0.1 mg PO BID@0700,189904/28/20 06/27/20 History Metoprolol Succinate [Toprol XL] 50 mg PO BID@0700,189904/28/20 06/27/20 History Acetaminophen Tab [Tylenol] 1,000 mg PO Q6HR PRN 06/25/20 06/27/20 History Apixaban [Eliquis] 2.5 mg PO BID@0700,189906/25/20 06/27/20 History Cyanocobalamin (Vitamin B-12) 1,000 mcg PO HS@189906/25/20 06/27/20 History [Vitamin B-12] Eye Health Complex 1 cap PO DAILY@69906/25/20 06/27/20 History Folic Acid 0.4 mg PO DAILY@189906/25/20 06/27/20 History Lisinopril-Hctz 10-12.5 mg 1 tab PO DAILY@69906/25/20 06/27/20 History [Zestoretic 10-12.5] Mag Oxide 420mg 420 mg PO DAILY@69906/25/20 06/27/20 History Mirtazapine [Remeron] 15 mg PO HS@19006/25/20 06/27/20 History Nitroglycerin Sl Tabs [Nitrostat] 0.4 mg SUBLINGUAL Q5M PRN 06/25/20 06/27/20 History Pantoprazole Sodium [Protonix] 40 mg PO DAILY@0706/25/20 06/27/20 History QUEtiapine [SEROquel] 50 mg PO HS@189906/25/20 06/27/20 History Thiamine [Vitamin B-1] 100 mg PO HS@189906/25/20 06/27/20 History Timolol 0.5% Ophth Soln [Timoptic 1 drop BOTH EYES DAILY@69906/25/20 06/27/20 History 0.5% Ophth Soln] traMADol-ACETAMINOP 37.5-325MG 1 tab PO TID PRN 06/25/20 06/27/20 History [Ultracet] Cefuroxime [Ceftin] 250 mg PO BID #10 tab 06/27/20 06/27/20 Rx Potassium Cl Micro 20meq 20 meq PO BID #0 06/27/20 06/27/20 Rx Allergies Allergy/AdvReac Type Severity Reaction Status Date / Time No Known Allergies Allergy Verified 06/25/20 08:11 Physical Examination - Vital Signs Vital Signs: Vital Signs Temp Pulse Pulse Resp BP Pulse Ox 06/29/20 05:19 98.5 F 59 L 18 167/88 94 L 06/28/20 21:00 98.4 F 68 18 172/91 96 06/28/20 11:33 98.1 F 60 18 142/69 93 L Intake and Output 06/28/20 06/29/20 06/29/20 22:59 06:59 14:59 Output Total 500 Balance -500 Output: Urine 500 Other: Voiding Method Indwelling Catheter Indwelling Catheter # Voids 1 # Bowel Movements 1 Weight 59.194 kg GENERAL: The patient is lying in bed and is not in acute distress. CHEST: The heart rate is regular rate rhythm. No murmurs to auscultation. LUNG: Clear to auscultation bilaterally no wheezing noted throughout. Not labored breathing. ABDOMEN/GI: Bowel sounds present in all 4 quadrants. No tenderness to palpation throughout. NEUROLOGICAL: Higher mental function: The patient is awake, alert, oriented to self, place and time. Patient is following commands. No aphasia and no neglect. Cranial nerves: The pupils are round, equal and reactive to light and accommodat ion. Visual maldonado are full to confrontation throughout. Extraocular movement is intact no nystagmus is noted. Facial sensation is normal to touch throughout. The facial strength is normal throughout. Hearing is normal bilaterally to hand rub. Tongue is midline and moved [id number] without any difficulty. No dysarthria is noted. Shoulder shrug is normal bilaterally. Motor: Gait is defered. The strength is 5 over 5 throughout. Normal tone and bulk. He has Pes cavus bilaterally. Cerebellum: Normal finger to nose heel to macario bilaterally. Sensation: Sensation is normal to touch throughout. Reflexes (right/left): 2+ except at ankles 1+ Plantars are upgoing bilaterally. Results AST of 30, ALTs 13. PT of 11.2, INR 1.1, PTT of 24.6. Calcium 8.3 repeated calcium 8.0 - Laboratory Findings CBC and BMP: 06/28/20 06:46 06/28/20 06:46 Abnormal Lab Findings: Abnormal Labs 06/27/20 06/27/20 06/28/20 16:43 16:43 06:46 RBC 3.70 L 3.58 L Hgb 12.3 L 11.8 L Hct 38.9 L 37.7 L MCV 105.0 H 105.3 H Calcium 8.3 L Total Protein 6.2 L 06/28/20 06:46 RBC Hgb Hct MCV Calcium 8.0 L Total Protein Assessment and Plan Assessment: 89-year-old right-handed gentleman with medical history of newly diagnosed Alzheimer's dementia with intermittent psychosis, TIA years ago (right facial numbness and weakness), peripheral neuropathy, essential hypertension, atrial fibrillation, pacemaker, hyperlipidemia, coronary artery disease, granuloma of the lung disease, ascending aortic aneurysm 4.4 cm He was recently admitted to [facility] on 06/25/2020 for urinary tract infectionas well as delerium and the was treated with IV antibiotics. The patient was discharged on 06/27/2020 and was just sitting on the bench and the patient was having convulsion lasting about 5 minutes. Per patient and his dauhter he has repeated episode of him having headache, "eyes become black", then passes out. Episode of new consulsion possibly seizure. Possibly complicated migraine. Alzheimer's dementia with intermittent psychosis History of TIA Plan: Regarding the patient new onset of convuslion and suspicion for seizure. He was started on Keppra 500 mg twice a day. The EEG is pending. Since the calcium was low I ordered ionized calcium. If it slowly recommend correction and we'll defer the treatment to the primary team. Patient needs to follow up with the outpatient neurology team regarding episode of passing out and this convuslion for suspicous of seizure and ruling out complicated migraine. 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 Patient had MRI Brain one year ago at outside hospital and we don't have records of that. Recommend repeating MRI Brain w/ and w/o as outpatient. The plan was discussed with the patient and his daughter (Mellissa). Recommend him following-up outpatient Neurologist: Dr. Jeremy Qureshi MD 15 [employer] reviews Neurologist in [place], [place] Address: [address] [place] [id number] Thank you for the consult. Roe Alexander M.D. Neuro-hospitalist Time with Patient: Greater than 30
[2020-06-29 12:27] VITALS: BP 158/81; PULSE 63; TEMP 97.6
[2020-06-29] MEDS ORDERED: CALCIUM GLUCONATE 1 GM in SODIUM CHLORIDE 0.9% 100 ML IVPB ONE (14:00)
--- NOTE | 2020-06-29 17:32 | EEG ---
ELECTROENCEPHALOGRAM REPORT DATE OF SERVICE: 06/29/2020 CLINICAL HISTORY: This is an 89-year-old gentleman with reported history of Alzheimer's dementia with intermittent psychosis who presented for an episode of convulsions on 06/27/2020 upon discharge from the hospital. This video EEG was obtained to evaluate for seizure and epileptiform activity. RELEVANT MEDICATION: The patient is on Keppra. EEG TYPE: A routine 21-channel routine EEG was performed with video using the 10/20 electrode placement system. DESCRIPTION: Wakefulness is only obtained. During wakefulness, there is a posterior-dominant rhythm of low to moderate voltage that is well modulated 6-7 hertz diffuse activity. No stage II sleep architecture was seen. Interictal and ictal: None seen. ACTIVATION PROCEDURE: Photic stimulation did not evoke a posterior driving response. Hyperventilation was not performed because of the patient's clinical history. EEG DIAGNOSIS: This is an abnormal routine EEG due to background slowing. CLINICAL INTERPRETATION: This is an abnormal awake routine EEG suggestive of mild encephalopathy of unspecified etiology. There is no focal slowing. There is no interictal and no seizure detected during this routine EEG. Clinical correlation is recommended. MMSHERMAN / IJN: [id number] / FREDI
--- NOTE | 2020-06-29 22:13 | P.DS ---
Providers Date of admission: 06/27/20 17:55 Expected date of discharge: 06/29/20 Attending physician: Babak Ruiz Consults: 06/28/20 21:20 Consult Physician Routine Consulting Provider: Prakash Duke Consult Reason/Comments: new onset seizures Do you want consulting provider notified?: Yes Primary care physician: [facility] Course: Chief Complaint: Seizure History of presenting complaint: This is a pleasant 89-year-old patient who follows with Dr. randall. Chronic stable medical conditions include atrial fibrillation, peripheral neuropathy, essential hypertension, hyperlipidemia, coronary artery disease, permanent pacemaker, granulomatous lung disease, ascending aortic aneurysm 4.4 cm, moderate pulmonary regurgitation, Alzheimer's dementia, with history of intermittent psychosis. Patient felt of embolic stroke back in 2017. For which she was put on eliquis. Patient's currently at [facility] patient bit hospital 3 days agowith acute UTI from cystitis, treated with IV antibiotics and had presented with acute delirium. Patient is doing well and was discharged yesterday afternoon. electrolytes were corrected. Patient was just taken outside the hospital was sitting on a bench. And the patient started having convulsions. Loss of about 5 minutes. And patient is slow to the site. He was unresponsive for a short period of time. Then woke up started answer questions appropriately. Patient brought back to the ER. Patient had been doing well by time of discharge. I discussed with the ER physician IV Keppra was ordered.. Today-patient is admitted to do well. No further seizures. EEG was negative. Cleared by neurology. Patient about on Keppra. Consultation: Dr. Alexander from neurology Physical examination: VITAL SIGNS: 97.6, 63, 18, 158.81, 99% room air GENERAL: Sitting up, comfortable EYES: Pupils equal. Conjunctiva normal. NECK: JVD not raised; masses not palpable. HEART: First and second heart sounds are normal; no edema. LUNGS: Respiratory rate normal; decreased breath sounds. ABDOMEN: Soft, nontender, liver spleen not palpable, no masses palpable. PSYCH: Patient able to answer simple questions.. MUSCULOSKELETAL: Evidence of OA. INVESTIGATIONS, reviewed in the clinical context: white count 4.1 hemoglobin 11.8 platelets 159 potassium 3.8 creatinine 0.98 computed tomography scan of the brain-chronic changes CT angiogram the brain head and neck-erythematous plaquing but no flow limiting stenosis. EKG tracing personally reviewed by me-paced rhythm with underlying atrial flutter chest x-ray film borderline cardiac megaly, prominent interstitium Assessment: -new-onset of seizures. POA -recent acute UTI from cystitis completed antibiotic - Alzheimer's dementia late onset -Chronic insomnia for medical reasons improved -Persistent atrial fibrillation/fibrillation on eliquis -Peripheral neuropathy -Essential hypertension -Hyperlipidemia -Coronary artery disease -Granulomatous lung disease, chronic -Ascending aortic aneurysm 4.4 cm -Moderate secondary pulmonary regurgitation nonrheumatic -Permanent pacemaker Disposition: Assisted-living Patient Condition at Discharge: Stable Plan - Discharge Summary New Discharge Prescriptions: New levETIRAcetam [Keppra] 500 mg PO BID #60 tab Continue Multivit-Min/FA/Lycopen/Lutein [Centrum Silver Men Tablet] 1 tab PO DAILY@0700 Digoxin [Lanoxin] 125 mcg PO DAILY@0700 Tamsulosin HCl [Flomax] 0.8 mg PO DAILY@0700 Finasteride [Proscar] 5 mg PO HS@1900 Fludrocortisone Acetate 0.1 mg PO BID@0700,1900 Metoprolol Succinate [Toprol XL] 50 mg PO BID@0700,1900 Nitroglycerin Sl Tabs [Nitrostat] 0.4 mg SUBLINGUAL Q5M PRN PRN Reason: Chest Pain Cyanocobalamin (Vitamin B-12) [Vitamin B-12] 1,000 mcg PO HS@1900 Acetaminophen Tab [Tylenol] 1,000 mg PO Q6HR PRN PRN Reason: Pain Or Fever > 100.5 Thiamine [Vitamin B-1] 100 mg PO HS@1900 traMADol-ACETAMINOP 37.5-325MG [Ultracet] 1 tab PO TID PRN PRN Reason: Pain Timolol 0.5% Ophth Soln [Timoptic 0.5% Ophth Soln] 1 drop BOTH EYES DAILY@0700 QUEtiapine [SEROquel] 50 mg PO HS@1900 Pantoprazole Sodium [Protonix] 40 mg PO DAILY@0700 Mirtazapine [Remeron] 15 mg PO HS@1900 Folic Acid 0.4 mg PO DAILY@1900 Eye Health Complex 1 cap PO DAILY@0700 Mag Oxide 420mg 420 mg PO DAILY@0700 Lisinopril-Hctz 10-12.5 mg [Zestoretic 10-12.5] 1 tab PO DAILY@699 Apixaban [Eliquis] 2.5 mg PO BID@699,1899 Potassium Cl Micro 20meq 20 meq PO BID #0 Discontinued Cefuroxime [Ceftin] 250 mg PO BID #10 tab Discharge Medication List Multivit-Min/FA/Lycopen/Lutein [Centrum Silver Men Tablet] 1 tab PO DAILY@69904/10/17 [History] Digoxin [Lanoxin] 125 mcg PO DAILY@69904/11/17 [History] Tamsulosin HCl [Flomax] 0.8 mg PO DAILY@69906/30/17 [History] Finasteride [Proscar] 5 mg PO HS@189904/28/20 [History] Fludrocortisone Acetate 0.1 mg PO BID@07,189904/28/20 [History] Metoprolol Succinate [Toprol XL] 50 mg PO BID@699,189904/28/20 [History] Acetaminophen Tab [Tylenol] 1,000 mg PO Q6HR PRN 06/25/20 [History] Apixaban [Eliquis] 2.5 mg PO BID@699,189906/25/20 [History] Cyanocobalamin (Vitamin B-12) [Vitamin B-12] 1,000 mcg PO HS@189906/25/20 [History] Eye Health Complex 1 cap PO DAILY@69906/25/20 [History] Folic Acid 0.4 mg PO DAILY@189906/25/20 [History] Lisinopril-Hctz 10-12.5 mg [Zestoretic 10-12.5] 1 tab PO DAILY@69906/25/20 [History] Mag Oxide 420mg 420 mg PO DAILY@69906/25/20 [History] Mirtazapine [Remeron] 15 mg PO HS@189906/25/20 [History] Nitroglycerin Sl Tabs [Nitrostat] 0.4 mg SUBLINGUAL Q5M PRN 06/25/20 [History] Pantoprazole Sodium [Protonix] 40 mg PO DAILY@69906/25/20 [History] QUEtiapine [SEROquel] 50 mg PO HS@1900 06/25/20 [History] Thiamine [Vitamin B-1] 100 mg PO HS@1900 06/25/20 [History] Timolol 0.5% Ophth Soln [Timoptic 0.5% Ophth Soln] 1 drop BOTH EYES DAILY@0700 06/25/20 [History] traMADol-ACETAMINOP 37.5-325MG [Ultracet] 1 tab PO TID PRN 06/25/20 [History] Potassium Cl Micro 20meq 20 meq PO BID #0 06/27/20 [Rx] levETIRAcetam [Keppra] 500 mg PO BID #60 tab 06/29/20 [Rx] Follow up Appointment(s)/Referral(s): Jeremy Qureshi MD [Medical Doctor] - 1 Week (Please call office to schedule appt. Office closed at time of discharge. ) Harman Yanes MD [Primary Care Provider] - 1-2 days ([facility] to schedule follow up appt. with visiting physicians.) Patient Instructions/Handouts: Levetiracetam (By mouth), Heart Failure (DC), Epilepsy (DC), Chronic Hypertension (DC) Discharge Disposition: HOME SELF-CARE
== END 2020-06-29 17:35 | disposition home or self-care (01) ==
LOC: EC 16:17 → 5NMEDONC 17:55
PROVIDERS: ADMIT Hospitalist; ATTEND Hospitalist
DX: R56.9 Unspecified convulsions (principal); G30.1 Alzheimer's disease with late onset; F02.80 Dementia in other diseases classified elsewhere, unspecified severity, without behavioral disturbance, psychotic disturbance, mood disturbance, and anxiety; N39.0 Urinary tract infection, site not specified; G93.40 Encephalopathy, unspecified; I10 Essential (primary) hypertension; R51 Headache; I77.1 Stricture of artery; I67.82 Cerebral ischemia; I25.10 Atherosclerotic heart disease of native coronary artery without angina pectoris; I50.9 Heart failure, unspecified; I11.0 Hypertensive heart disease with heart failure; I37.1 Nonrheumatic pulmonary valve insufficiency; Z87.891 Personal history of nicotine dependence; E78.5 Hyperlipidemia, unspecified; N17.9 Acute kidney failure, unspecified; E87.5 Hyperkalemia; F51.04 Psychophysiologic insomnia; I25.2 Old myocardial infarction; M19.90 Unspecified osteoarthritis, unspecified site; Z87.01 Personal history of pneumonia (recurrent); N42.9 Disorder of prostate, unspecified; R55 Syncope and collapse; G62.9 Polyneuropathy, unspecified; H35.30 Unspecified macular degeneration; H54.61 Unqualified visual loss, right eye, normal vision left eye; H40.9 Unspecified glaucoma; Z98.49 Cataract extraction status, unspecified eye; I73.9 Peripheral vascular disease, unspecified; G89.29 Other chronic pain; M54.9 Dorsalgia, unspecified; Z95.810 Presence of automatic (implantable) cardiac defibrillator; Z95.5 Presence of coronary angioplasty implant and graft; Z95.0 Presence of cardiac pacemaker; Z98.52 Vasectomy status; Z82.49 Family history of ischemic heart disease and other diseases of the circulatory system; Z80.8 Family history of malignant neoplasm of other organs or systems; Z86.73 Personal history of transient ischemic attack (TIA), and cerebral infarction without residual deficits; J98.4 Other disorders of lung; I71.2 Thoracic aortic aneurysm, without rupture; I48.19 Other persistent atrial fibrillation; Z79.891 Long term (current) use of opiate analgesic; Z79.01 Long term (current) use of anticoagulants; Z79.899 Other long term (current) drug therapy
CPT/HCPCS: 96366; 96365; 96375; 99285; 36415; 95816; 93005; 80053; 80048; 82330; 83605; 84484; 85025 ×2; 85610; 85730; 71046; 70496; 70450; 70498; G0378 ×3; S0138; J0360; J2405; J0610; J1953; Q9967

== ENCOUNTER → 2020-07-09 | Outpatient (CLI) | payer MEDICARE, BC ==
[2020-07-09 11:33] LABS: Calcium 8.8 mg/dL (8.4-10.2); Potassium 3.9 mmol/L (3.5-5.1)
[2020-07-09 11:44] LABS: Basophils % (A) 0 %; Eosinophils # (A) 0.1 k/uL (0-0.7); Eosinophils % (A) 2 %; HCT 39.3 % (39.0-53.0); Hypochromasia Slight; Lymphocytes # (A) 1.2 k/uL (1.0-4.8); Lymphocytes % (A) 26 %; MCH 32.3 pg (25.0-35.0); MCHC 30.6 g/dL (31.0-37.0); MCV 105.7 fL (80.0-100.0); Macrocytosis Moderate; Mean Platelet Volume 7.9; Monocytes # (A) 0.3 k/uL (0-1.0); Monocytes % (A) 7 %; Neutrophils % (A) 63 %; Platelet Count 199 k/uL (150-450); RBC 3.72 m/uL (4.30-5.90); RDW 13.6 % (11.5-15.5); WBC 4.7 k/uL (3.8-10.6)
== END | disposition home or self-care (01) ==
LOC: LABPAT 10:26
PROVIDERS: ATTEND Urology
DX: Z01.818 Encounter for other preprocedural examination (principal); N40.1 Benign prostatic hyperplasia with lower urinary tract symptoms; N13.8 Other obstructive and reflux uropathy; R35.0 Frequency of micturition
CPT/HCPCS: 36415; 80048; 85025; 87086

== ENCOUNTER 2020-07-16 06:07 | Day surgery (SDC) | payer MEDICARE, BC ==
--- NOTE | 2020-07-13 07:15 | P.GSHP ---
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 He was evaluated for urinary retention in May 2020. The postvoid residual at the time of that evaluation was 365 mL. Ultrasound postvoid residual in April 2020 was 276 mL. Cystoscopy was performed, revealing bilobar BPH with a trabeculated bladder and cellules. He was offered the options of ureteral left versus transurethral resection of prostate, and elected to undergo the former. He was recently hospitalized after having a possible seizure. - Constitutional Constitutional: Denies chills, Denies fever - Gastrointestinal Gastrointestinal: Reports constipation - Genitourinary (Male) Genitourinary: Reports urinary frequency Past Medical History Past Medical History: Atrial Fibrillation, Coronary Artery Disease (CAD), Chest Pain / Angina, Heart Failure, Hyperlipidemia, Hypertension, Myocardial Infarction ([place]), Osteoarthritis (OA), Pneumonia, Prostate Disorder, Syncope Additional Past Medical History / Comment(s): peripheral neuropathy hands/arms,legs, feet. 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 pvd, djd, diverticulitis, chronic back pain Last Myocardial Infarction Date:: 2011 History of Any Multi-Drug Resistant Organisms: None Reported Past Surgical History: AICD, Heart Catheterization, Heart Catheterization With Stent, Pacemaker Additional Past Surgical History / Comment(s): cataracts sx, laser sx for glaucoma,vasectomy,colonoscopy/polypectpmy-benign, pain clinic procedure, hemorrhoidectomy, rt carpal tunnel release. Past Anesthesia/Blood Transfusion Reactions: No Reported Reaction Date of Last Stent Placement:: 2011 Type of Cardiac Device: Permanent Pacemaker Device Placement Date:: Past Psychological History: No Psychological Hx Reported Additional Psychological History / Comment(s): pt lives with his .lives in a 2 story home that has 17 steps total to 2nd floor and 5 porch steps. pt is independant. he has no medical equipment. no home care services. pt nor no longer drive-she has dementia. daughter takes them to appts and such. pt served in the [employer] during the [employer]. pt reited from autobody work. Past Alcohol Use History: Daily Additional Past Alcohol Use History / Comment(s): started smoking 1949 adn quit 1985-smoked 1/2 ppd Past Drug Use History: None Reported - Past Family History Mother Family Medical History: Myocardial Infarction ([place]) Father Family Medical History: Cancer Additional Family Medical History / Comment(s): Bone CA, heart issues Medications and Allergies Home Medications Medication Instructions Recorded Confirmed Type Multivit-Min/FA/Lycopen/Lutein 1 tab PO DAILY@69904/10/17 06/27/20 History [Centrum Silver Men Tablet] Digoxin [Lanoxin] 125 mcg PO DAILY@69904/11/17 06/27/20 History Tamsulosin HCl [Flomax] 0.8 mg PO DAILY@69906/30/17 06/27/20 History Finasteride [Proscar] 5 mg PO HS@189904/28/20 06/27/20 History Fludrocortisone Acetate 0.1 mg PO BID@0700,189904/28/20 06/27/20 History Metoprolol Succinate [Toprol XL] 50 mg PO BID@07,189904/28/20 06/27/20 History Acetaminophen Tab [Tylenol] 1,000 mg PO Q6HR PRN 06/25/20 06/27/20 History Apixaban [Eliquis] 2.5 mg PO BID@07,189906/25/20 06/27/20 History Cyanocobalamin (Vitamin B-12) 1,000 mcg PO HS@189906/25/20 06/27/20 History [Vitamin B-12] Eye Health Complex 1 cap PO DAILY@69906/25/20 06/27/20 History Folic Acid 0.4 mg PO DAILY@189906/25/20 06/27/20 History Lisinopril-Hctz 10-12.5 mg 1 tab PO DAILY@69906/25/20 06/27/20 History [Zestoretic 10-12.5] Mag Oxide 420mg 420 mg PO DAILY@69906/25/20 06/27/20 History Mirtazapine [Remeron] 15 mg PO HS@189906/25/20 06/27/20 History Nitroglycerin Sl Tabs [Nitrostat] 0.4 mg SUBLINGUAL Q5M PRN 06/25/20 06/27/20 History Pantoprazole Sodium [Protonix] 40 mg PO DAILY@69906/25/20 06/27/20 History QUEtiapine [SEROquel] 50 mg PO HS@189906/25/20 06/27/20 History Thiamine [Vitamin B-1] 100 mg PO HS@189906/25/20 06/27/20 History Timolol 0.5% Ophth Soln [Timoptic 1 drop BOTH EYES DAILY@69906/25/20 06/27/20 History 0.5% Ophth Soln] traMADol-ACETAMINOP 37.5-325MG 1 tab PO TID PRN 06/25/20 06/27/20 History [Ultracet] Potassium Cl Micro 20meq 20 meq PO BID #0 06/27/20 06/27/20 Rx levETIRAcetam [Keppra] 500 mg PO BID #60 tab 06/29/20 Rx Allergies Allergy/AdvReac Type Severity Reaction Status Date / Time No Known Allergies Allergy Verified 06/25/20 08:11 Surgical - Exam - General well developed, well nourished, no distress - Neck no masses, trachea midline - Respiratory normal respiratory effort, clear to auscultation - Cardiovascular Rhythm: regular Abnormal Heart Sounds: systolic murmur - Abdomen Abdomen: soft, non tender, no guarding, no rigid, no rebound - Genitourinary normal penis with no external lesions, testicles non-tender - Rectum Rectum: normal sphincter tone, no masses, other (Prostate mildly enlarged but smooth) - Psychiatric oriented to time, oriented to person, oriented to place, speech is normal, memory intact Assessment and Plan (1) Benign prostatic hyperplasia with lower urinary tract symptoms Status: Acute Code(s): N40.1 - BENIGN PROSTATIC HYPERPLASIA WITH LOWER URINARY TRACT SYMP SNOMED Code(s): 301631181 Plan: Cystoscopy with Urolift. The procedure has been reviewed in detail with the patient and his daughter. They are aware of potential risks, which include anesthesia, bleeding, infection, incontinence, and persistent incomplete bladder emptying.
[2020-07-15 11:00] VITALS: BMI 17.1
[~2020-07-16 06:07] MED LIST: AMPICILLIN 2,000 MG in SODIUM CHLORIDE 0.9% 100 ML IVPB ONE; GENTAMICIN 90 MG in SODIUM CHLORIDE 0.9% 100 ML IVPB ONE; HYDROmorphone 0.5 MG/0.5 ML SYRINGE IVP PRN; LACTATED RINGERS 1,000 ML IV SCH; ONDANSETRON 4 MG/2 ML VIAL IVP ONE
[2020-07-16] MEDS ORDERED: LIDOCAINE 1% (10MG/ML) FOR IV START INTRADERMA ONE (06:51)
[2020-07-16] MEDS ORDERED: LIDOCAINE 1% INJ 10MG/ML (20 ML MDV) ONE (07:25)
[2020-07-16] MEDS ORDERED: SUCCINYLCHOLINE CHLORIDE 100 MG/5 ML SYR IV ONE (07:25)
[2020-07-16] MEDS ORDERED: PROPOFOL 10 MG/ML 20 ML VIAL IV ONE (07:25)
[2020-07-16] MEDS ORDERED: fentaNYL (PF) 50 MCG/ML 2 ML AMP ONE (07:25)
[2020-07-16 08:27] VITALS: TEMP 97.5
[2020-07-16] MEDS ORDERED: hydrALAZINE HCL 20 MG/ML 1 ML VIAL IVP ONE (09:15)
[2020-07-16 09:48] VITALS: RESP 18
[2020-07-16 11:35] VITALS: BP 158/83; PULSE 63
[2020-07-16] MEDS ORDERED: LIDOCAINE URO-JET JELLY 2% 5 ML KIT URETHRAL ONE (11:39)
--- NOTE | 2020-07-17 08:16 | P.OP ---
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 He was evaluated for urinary retention in May 2020. The postvoid residual at the time of that evaluation was 365 mL. Ultrasound postvoid residual in April 2020 was 276 mL. Cystoscopy was performed, revealing bilobar BPH with a trabeculated bladder and cellules. He was offered the options of ureteral left versus transurethral resection of prostate, and elected to undergo the former. He was recently hospitalized after having a possible seizure. Operative Findings: Bipolar BPH; open fossa following 7 implants. Description of Procedure: The patient was taken to the operating room and placed in the dorsolithotomy position, with his legs supported in Wayne stirrups. The external genitalia was prepped and draped sterilely. The 30 lens was used to introduce the Storz cystoscopic sheath through the urethra and into the bladder under direct vision. The anterior urethra appeared normal. The prostatic urethra was visually occluded, with a trilobar configuration. The bladder was unremarkable. No tumors or foreign bodies were seen. 2 Urolift implants were placed at the 10:00 and 2:00 positions approximately 1.5 cm distal to the vesical neck. 2 additional implants were placed at the 3:00 and 9:00 positions just proximal to the verumontanum. While this resulted in decreased visual occlusion, 3 additional implants were placed, resulting in an open fossa. A total of 7 implants were placed. Upon completion of the procedure, there was no active bleeding. The bladder was emptied and the cystoscope removed. The patient tolerated the procedure well was taken to the recovery room in stable condition.
== END 2020-07-16 12:20 | disposition home or self-care (01) ==
LOC: OR 06:07
PROVIDERS: ATTEND Urology
DX: N40.1 Benign prostatic hyperplasia with lower urinary tract symptoms (principal); N13.8 Other obstructive and reflux uropathy; R39.14 Feeling of incomplete bladder emptying; R33.8 Other retention of urine; N32.89 Other specified disorders of bladder; I48.19 Other persistent atrial fibrillation; I35.0 Nonrheumatic aortic (valve) stenosis; I25.119 Atherosclerotic heart disease of native coronary artery with unspecified angina pectoris; I95.1 Orthostatic hypotension; I11.0 Hypertensive heart disease with heart failure; I50.9 Heart failure, unspecified; E78.5 Hyperlipidemia, unspecified; M19.90 Unspecified osteoarthritis, unspecified site; G62.9 Polyneuropathy, unspecified; H35.30 Unspecified macular degeneration; R56.9 Unspecified convulsions; I27.20 Pulmonary hypertension, unspecified; I25.2 Old myocardial infarction; Z95.5 Presence of coronary angioplasty implant and graft; Z95.0 Presence of cardiac pacemaker; Z79.01 Long term (current) use of anticoagulants; Z79.899 Other long term (current) drug therapy; Z79.52 Long term (current) use of systemic steroids; Z79.891 Long term (current) use of opiate analgesic; Z86.73 Personal history of transient ischemic attack (TIA), and cerebral infarction without residual deficits; Z87.01 Personal history of pneumonia (recurrent); Z87.891 Personal history of nicotine dependence; Z98.49 Cataract extraction status, unspecified eye; Z96.1 Presence of intraocular lens; Z98.52 Vasectomy status; Z98.890 Other specified postprocedural states; Z82.49 Family history of ischemic heart disease and other diseases of the circulatory system; Z80.8 Family history of malignant neoplasm of other organs or systems
CPT/HCPCS: L8699; J0360; J2405; J2001; J3010; J1580; J0290; J0330; J2704; J1170; C9740

== ENCOUNTER → 2020-08-18 | Outpatient (CLI) | payer MEDICARE, BC ==
[2020-08-18 12:51] LABS: HCT 39.6 % (39.0-53.0); HGB 12.4 gm/dL (13.0-17.5); Hypochromasia Moderate; MCH 34.5 pg (25.0-35.0); MCHC 31.4 g/dL (31.0-37.0); MCV 109.8 fL (80.0-100.0); Macrocytosis Marked; Platelet Count 164 k/uL (150-450); RBC 3.61 m/uL (4.30-5.90); RDW 14.5 % (11.5-15.5); WBC 4.3 k/uL (3.8-10.6)
[2020-08-18 12:56] LABS: Potassium 4.3 mmol/L (3.5-5.1)
== END | disposition home or self-care (01) ==
LOC: LABPAT 11:10
PROVIDERS: ATTEND Internal Medicine Clinical Cardiac Electrophysiology
DX: Z01.818 Encounter for other preprocedural examination (principal); Z79.899 Other long term (current) drug therapy
CPT/HCPCS: 36415; 80051; 82565; 84443; 84520; 85027

== ENCOUNTER → 2020-09-07 | Day surgery (SDC) | payer MEDICARE, BC ==
[2020-09-04 13:46] VITALS: BMI 18.4
[~2020-09-07] MED LIST changes: +ACETAMINOPHEN IV (For NPO) 1,000 MG in EMPTY BAG 1 BAG IVPB ONE; +ACETAMINOPHEN TAB 325 MG TAB PO PRN; -AMPICILLIN 2,000 MG in SODIUM CHLORIDE 0.9% 100 ML IVPB ONE; +DIGOXIN 125 MCG TAB PO SCH; -GENTAMICIN 90 MG in SODIUM CHLORIDE 0.9% 100 ML IVPB ONE; +LIDOCAINE 1% INJ 10MG/ML (20 ML MDV) ONE; +LIDOCAINE 1% INJ 10MG/ML (20 ML MDV) SQ ONE; +LISINOPRIL-HCTZ 10-12.5 MG 1 EACH TAB PO SCH; +METOPROLOL SUCCINATE (ER) 50 MG TAB.ER.24H PO SCH; +METOPROLOL TARTRATE 5 MG/5 ML VIAL IVP ONE; +MIDAZOLAM 2 MG/2 ML VIAL IV PRN; -ONDANSETRON 4 MG/2 ML VIAL IVP ONE; +SODIUM CHLORIDE 0.9% 1,000 ML IV ONE; +SODIUM CHLORIDE 0.9% 1,000 ML IV SCH; +diphenhydrAMINE 50 MG/ML 1 ML VIAL ONE; +fentaNYL (PF) 50 MCG/ML 2 ML AMP ONE; +hydrALAZINE HCL 20 MG/ML 1 ML VIAL ONE
[2020-09-07 08:49] VITALS: RESP 16; TEMP 97.9
[2020-09-07] MEDS: ceFAZolin 1,000 MG in SODIUM CHLORIDE 0.9% IRRIGATIO 250 ML IRRIGATION ONE ×2 (09:35→09:46)
--- NOTE | 2020-09-07 10:39 | P.PRLE ---
RE: Cayden Meza Dear Dr. Yanes Patient underwent biventricular pacemaker generator change for normal battery depletion His cardiac medications will continue unchanged as before and he will continue follow-up with you and Dr. Burger Thank you for entrusting me with the care of the patient Warm regards Sincerely Daniel Charlton
--- NOTE | 2020-09-07 11:22 | PCN ---
PROCEDURE NOTE Mr. Cayden Meza is an 89-year-old male patient who has an underlying bradycardia who underwent a biventricular pacemaker implantation to avoid RV pacing many years back. His device is now at [facility] and he is brought in for a Bi V pacemaker generator change. Patient was brought to the EP lab in a fasting state. Written informed consent was obtained prior to the procedure. The left shoulder area was prepped and draped as per protocol. 1% lidocaine was used for local anesthesia. IV antibiotics were administered. An incision was made directly over the previous surgical site and carried down to the level of the generator. The generator was explanted. The leads were freed from the surrounding soft tissue and capsule. Partial capsulectomy was performed. The new generator was implanted. The leads were interrogated and were functioning normally. The new generator is a [employer] CRTP Shaniqua [id number], serial #[id number]. The LV thresholds were 0.75 V at 1 millisecond and the RV threshold was 0.75 V at 0.4 milliseconds. LV pacing impedance 475 ohms. RV pacing impedance 456 ohms. The atrial pacing impedance 456 ohms. Device was then programmed to VVIR at 60-120 ppm. Wound was closed in 3 layers and dressed per protocol. Prior to starting cinefluoroscopy of the leads was performed. Three leads were noted, atrial lead in the right atrial appendage. The RV lead in the low RV septum and the LV in the anterolateral LV vein. No fractures or breaks noted. The patient tolerated the procedure well without any acute complications MMODL / IJN: [id number] /
[2020-09-07 11:31] VITALS: BP 154/73; PULSE 59
== END | disposition home or self-care (01) ==
LOC: CATHEP 07:47
PROVIDERS: ATTEND Internal Medicine Clinical Cardiac Electrophysiology
DX: Z45.010 Encounter for checking and testing of cardiac pacemaker pulse generator [battery] (principal); I25.10 Atherosclerotic heart disease of native coronary artery without angina pectoris; I48.20 Chronic atrial fibrillation, unspecified; I11.0 Hypertensive heart disease with heart failure; I50.9 Heart failure, unspecified; I35.8 Other nonrheumatic aortic valve disorders; G62.9 Polyneuropathy, unspecified; N40.0 Benign prostatic hyperplasia without lower urinary tract symptoms; Z79.01 Long term (current) use of anticoagulants; Z79.899 Other long term (current) drug therapy; Z95.5 Presence of coronary angioplasty implant and graft; Z72.0 Tobacco use; Z86.73 Personal history of transient ischemic attack (TIA), and cerebral infarction without residual deficits; I95.1 Orthostatic hypotension
CPT/HCPCS: 33229; C2621; J0360; J1200; J0690 ×2; J2001; J3010; J0131